=== PATIENT | female | born 1945 | race Caucasian/White ===

== ENCOUNTER 2022-12-11 09:30 | Outpatient (RCR) | payer MEDICARE, SELFPAY ==
[2022-12-11 09:31] VITALS: BMI 25.0
[2022-12-11 10:44] VITALS: BMI 25.0
== END 2023-01-01 14:23 | disposition home or self-care (01) ==
LOC: ANHDMC 09:30
PROVIDERS: PCP Internal Medicine; Visit Provider Internal Medicine
DX: E11.65 Type 2 diabetes mellitus with hyperglycemia (principal); Z71.89 Other specified counseling; Z71.3 Dietary counseling and surveillance
CPT/HCPCS: 97802; G0108

== ENCOUNTER 2024-11-10 09:04 | Outpatient (CLI) | payer MEDICARE, SELFPAY ==
[2024-11-10 09:50] LABS: Basophils Percent Auto 0.7 % (0.2-1.2); Eosinophils Absolute Auto 0.2 K/mm3 (0-0.3); Eosinophils Percent Auto 3.2 % (0-4.4); Hematocrit 43.6 % (37.0-47.0); Hemoglobin 13.9 g/dL (12.0-15.0); Immature Granulocyte Absolute 0.02 K/mm3 (0.00-0.031); Immature Granulocyte Percent A 0.4 % (0-0.5); Lymphocytes Absolute Auto 1.57 K/mm3 (0.9-3.2); Lymphocytes Percent Auto 27.7 % (18.3-44.2); Mean Corpuscular HGB Conc 31.9 g/dl (32-36); Mean Corpuscular Hemoglobin 27.8 pg (26-34); Mean Corpuscular Volume 87.2 fl (80-100); Mean Platelet Volume 9.3 fl (7.4-10.4); Monocytes Absolute Auto 0.4 K/mm3 (0.1-0.6); Monocytes Percent Auto 6.4 % (2.6-8.5); Neutrophils Absolute Auto 3.5 K/mm3 (1.3-6.7); Neutrophils Percent Auto 61.6 % (45.5-73.1); Platelet Count Result 255 k/mm3 (150-375); Red Cell Distribution Width 13.2 % (11.5-14.5); White Blood Count 5.7 K/mm3 (4.5-10.0)
--- OUTSIDE RECORDS SUMMARY | 2024-11-10 10:11 | XMS_ITS | Data Portability ---
Author Organization [facility], Main Office Address [address] [place] [address] Care Team Providers Care Belt Maker Name Role Phone BAR REY Primary Care Provider BAR REY Referring Provider Assessment Encounter Date Assessment Date Assessment LastModified by Organization Details LastModified Time 05/18/2023 05/18/2023 Blood work urine diet exercise questions all answered follow-up 4 months [email or web address] Not available 06/14/2023 14:30:00 12/22/2023 12/22/2023 78-year-old patient presents today for right wrist pain after a fall on 12/20/2023. She was letting her dog when she tripped and fell onto her outstretched right hand. She presented to the emergency room where x-rays were taken and she was told she had a fracture. She was placed in a splint and told to follow up with us. She presents today still in the splint, she rates her pain a 6/10. She denies any past medical history other than being told she was a prediabetic. She underwent ankle surgery a year and a half ago with Dr. Trejo without issue. Review of systems per patient questionnaire Imaging: X-rays reviewed show a mildly displaced fracture of the right distal radius with dorsal angulation. Physical exam: Splint was removed. Bruising and edema from elbow to fingers. Pain with palpitation to the distal radius. Able to wiggle fingers and move elbow without issue. Sensation intact throughout. Today we discussed treatment options including surgical fixation versus conservative treatment. We discussed that she may have reduced range of motion and development of her arthritis if she chooses to not have the wrist fixed. She states she plays the piano and would like to have her best possible outcome. Risks, benefits, and alternatives to surgery were discussed with the patient. Risks included but are not limited to pain, stiffness, infection, injury to other structures including nerves or blood vessels, need for future surgery, and anesthesia complications. The goal of surgery is to improve symptoms but there is no guarantee of any results and it is possible the condition is worse after surgery. Patient agreed and would like to proceed. [email or web address] Not available 12/22/2023 11:34:50 01/13/2024 01/13/2024 78-year-old female presents for her 1st follow-up status post right distal radius ORIF done on 12/29/2023. She reports feeling good, pain is improved, she has taking no pain medications, rates her pain as 3/10. Splint was removed. Incision is clean dry intact without any signs of infection. Sutures removed redressed with Steri-Strips. She does still have soreness at the distal radius and pain with rotation of the wrist. Sensation intact to light touch throughout, 2+ radial pulse. We placed her into a wrist brace. She should treat this as a cast and keep it on all times except for hygiene. We will see her back in 2 weeks with repeat x-rays. She is in agreement with the plan. Not available 01/13/2024 12:34:37 01/27/2024 01/27/2024 78-year-old female presents for follow-up of her right wrist status post distal radius ORIF on 12/29/2023. She reports feeling better, she is getting some pain in her thumb from the brace. She has been working on movement of her fingers. She currently rates her pain as 3/10, not taking any medications, still wearing the brace. Incisions well healed. She still has some soreness to palpation at the distal radius. She has good motion of her fingers. She does have tenderness over the thumb CMC and MCP joints. 2+ radial pulse. X-rays of the wrist were reviewed, demonstrating hardware intact in place with maintenance of alignment At this point she is progressing well. Since she still has some tenderness we will keep her in the brace for another couple of weeks. We will see her back then with repeat x-rays. She should continue working on finger motion and can use a squeeze ball. She is in agreement with the plan. Not available 01/27/2024 18:34:35 02/10/2024 02/10/2024 78-year-old female presents for follow-up of her right wrist status post ORIF of the distal radius and 12/29/2023. Overall she is doing well, minimal pain, feeling better she has started trying to play the piano but says she can not play as well as before her injury yet. She has not taking any medications. She is working on exercises on her own with a stress ball Incisions well healed. She has no tenderness around the distal radius. She has full flexion-extensio n of her fingers and movement of her wrist without pain. She is sensation intact to light touch throughout, 2+ radial pulse. X-rays reviewed, demonstrating hardware intact in place with maintenance alignment, healing fracture At this point she is progressing well. She may come out of the brace and be activities as tolerated. She may follow-up as needed if any questions or concerns arise. Not available 02/10/2024 12:11:20 Plan of Treatment Reminders Order Date Submit Date Provider Last Modified By Organization Details Last Modified Time Details Appointments None recorded. Lab urinalysis, microscopic 2022 023 [facility] (Lab), [address] [place], [address], 4 18:30:19 HbA1c (hemoglobin A1c), blood 2022 023 [facility] (Lab), [address] [place], [address], 4 18:30:19 CBC w/ auto diff 2022 023 [email or web address] [facility] (Lab), [address] [place], [address], 3 16:52:12 T3, free, serum or plasma 2022 023 [facility] (Lab), [address] [place], [address], 3 16:52:12 T4, free, serum 2022 023 [facility] (Lab), [address] [place], [address], 3 16:52:12 TSH, serum or plasma [address] (Lab), [address] [place], [address], 3 16:52:12 lipid panel, serum [address] (Lab), [address] [place], [address], 3 16:52:12 CMP, serum or plasma [address] (Lab), [address] [place], [address], 3 16:52:12 Referral None recorded. Procedures None recorded. Surgeries None recorded. Imaging XR, wrist, 3 or more view 2023 024 [facility] [place], [address], [place], [address], 4 14:08:14 XR, wrist, 3 or more view 2023 024 [facility] [place], [address], [place], [address], 4 00:17:19 Medication Orders None recorded. Patient TargetsNo targets recorded. Patient InstructionsNo instructions recorded. Reason for Referral None Reported. Results Created Date Observation Date Name Description Value Unit Range Abnormal Flag Note LastModifiedBy Organization Detail LastModifiedTime 05/18/20 23 05/18/2023 URINE MICRO SCOPI C EXAM/ IRIS white blood cells PACKED /i??h pfi?? 0-8 abnormal Not Available [facility] (Lab) [address] [place], [address], 05/18/2023 14:42:21 05/18/20 23 05/18/2023 URINE MICRO SCOPI C EXAM/ IRIS white blood cell clumps MANY /i??h pfi?? none seen- abnormal Not Available [facility] (Lab) [address] [place], [address], 05/18/2023 14:42:21 05/18/20 23 05/18/2023 URINE MICRO SCOPI C EXAM/ IRIS red blood cells 0-4 /i??h pfi?? 0-4 Not Available [facility] (Lab) [address] [place], [address], 05/18/2023 14:42:21 05/18/20 23 05/18/2023 URINE MICRO SCOPI C EXAM/ IRIS bacteria FEW abnormal Not Available [facility] (Lab) [address] [place], [address], 05/18/2023 14:42:21 05/18/20 23 05/18/2023 URINE MICRO SCOPI C EXAM/ IRIS mucous OCCASI ONAL /i??l pfi?? abnormal Not Available [facility] (Lab) [address] [place], [address], 05/18/2023 14:42:21 05/18/20 23 05/18/2023 URINE MICRO SCOPI C EXAM/ IRIS squamous epithelial FEW /i??l pfi?? abnormal Not Available [facility] (Lab) [address] [place], [address], 05/18/2023 14:42:21 05/18/20 23 05/18/2023 URINE MICRO SCOPI C EXAM/ IRIS amorphous crystal MODERA TE /i??h pfi?? abnormal Not Available [facility] (Lab) [address] [place], [address], 05/18/2023 14:42:21 05/18/20 23 05/18/2023 CBC/C OMPLE TE BLD COUNT W/DIF F white blood cells 6.1 x10'3 /uL 4.2-10 .8 Not Available [facility] (Lab) [address] [place], [address], 05/18/2023 15:28:27 05/18/20 23 05/18/2023 CBC/C OMPLE TE BLD COUNT W/DIF F red blood cells 4.72 x10'6 /uL 3.80-5 .20 Not Available [facility] (Lab) [address] [place], [address], 05/18/2023 15:28:27 05/18/20 23 05/18/2023 CBC/C OMPLE TE BLD COUNT W/DIF F hemoglobin 13.5 g/dL 12.0-1 5.6 Not Available [facility] (Lab) [address] [place], [address], 05/18/2023 15:28:27 05/18/20 23 05/18/2023 CBC/C OMPLE TE BLD COUNT W/DIF F hematocrit 41.7 % 35.7-4 5.7 Not Available [facility] (Lab) [address] [place], [address], 05/18/2023 15:28:27 05/18/20 23 05/18/2023 CBC/C OMPLE TE BLD COUNT W/DIF F mean red cell volume 88.3 fL 82.0-9 9.0 Not Available [facility] (Lab) [address] [place], [address], 05/18/2023 15:28:27 05/18/20 23 05/18/2023 CBC/C OMPLE TE BLD COUNT W/DIF F mean red cell hemoglobin 28.6 pg 27.0-3 3.0 Not Available [facility] (Lab) [address] [facility] [place], [address], 05/18/2023 15:28:27 05/18/20 23 05/18/2023 CBC/C OMPLE TE BLD COUNT W/DIF F mean RBC HGB concentratio n 32.4 g/dL 31.0-3 6.0 Not Available [facility] (Lab) [address] [place], [address], 05/18/2023 15:28:27 05/18/20 23 05/18/2023 CBC/C OMPLE TE BLD COUNT W/DIF F red cell distribution width 12.7 % 11.8-1 5.5 Not Available [facility] (Lab) [address] [place], [address], 05/18/2023 15:28:27 05/18/20 23 05/18/2023 CBC/C OMPLE TE BLD COUNT W/DIF F platelets 171 x10'3 /uL 150-40 0 Not Available [facility] (Lab) [address] [place], [address], 05/18/2023 15:28:27 05/18/20 23 05/18/2023 CBC/C OMPLE TE BLD COUNT W/DIF F mean platelet volume 11.3 fL 9.0-12 .4 Not Available [facility] (Lab) [address] [place], [address], 05/18/2023 15:28:27 05/18/20 23 05/18/2023 CBC/C OMPLE TE BLD COUNT W/DIF F neutrophils 66.6 % 39.0-7 2.0 Not Available [facility] (Lab) [address] [place], [address], 05/18/2023 15:28:27 05/18/20 23 05/18/2023 CBC/C OMPLE TE BLD COUNT W/DIF F lymphocytes 23.9 % 16.0-4 7.0 Not Available [facility] (Lab) [address] [place], [address], 05/18/2023 15:28:27 05/18/2005/18/2023 CBC/C OMPLE TE BLD COUNT W/DIF F monocytes 6.9 % 5.0-12 .0 Not Available [facility] (Lab) [address] [place], [address], 05/18/2023 15:28:27 05/18/20 23 05/18/2023 CBC/C OMPLE TE BLD COUNT W/DIF F eosinophils 1.5 % 1.0-7. 0 Not Available [facility] (Lab) [address] [place], [address], 05/18/2023 15:28:27 05/18/20 23 05/18/2023 CBC/C OMPLE TE BLD COUNT W/DIF F basophils 0.8 % 0.0-2. 0 Not Available [facility] (Lab) [address] [place], [address], 05/18/2023 15:28:27 05/18/20 23 05/18/2023 CBC/C OMPLE TE BLD COUNT W/DIF F immature granulocytes 0.3 % 0.00-0 .50 Not Available [facility] (Lab) [address] [place], [address], 05/18/2023 15:28:27 05/18/20 23 05/18/2023 CBC/C OMPLE TE BLD COUNT W/DIF F neutrophils, absolute count 4.07 x10'3 /uL 1.5-8. 0 Not Available [facility] (Lab) [address] [place], [address], 05/18/2023 15:28:27 05/18/20 23 05/18/2023 CBC/C OMPLE TE BLD COUNT W/DIF F lymphocytes, absolute count 1.46 x10'3 /uL 1.07-3 .43 Not Available [facility] (Lab) [address] [place], [address], 05/18/2023 15:28:27 05/18/20 23 05/18/2023 CBC/C OMPLE TE BLD COUNT W/DIF F monocytes, absolute count 0.42 x10'3 /uL 0.29-0 .99 Not Available [facility] (Lab) [address] [place], [address], 05/18/2023 15:28:27 05/18/20 23 05/18/2023 CBC/C OMPLE TE BLD COUNT W/DIF F eosinophils, absolute count 0.09 x10'3 /uL 0.02-0 .53 Not Available [facility] (Lab) [address] [place], [address], 05/18/2023 15:28:27 05/18/20 23 05/18/2023 CBC/C OMPLE TE BLD COUNT W/DIF F basophils, absolute count 0.05 x10'3 /uL 0.01-0 .08 Not Available [facility] (Lab) [address] [place], [address], 05/18/2023 15:28:27 05/18/20 23 05/18/2023 CBC/C OMPLE TE BLD COUNT W/DIF F immature granulocytes ,absolute 0.02 x10'3 /uL 0.00-0 .05 Not Available [facility] (Lab) [address] [place], [address], 05/18/2023 15:28:27 05/18/20 23 05/18/2023 CBC/C OMPLE TE BLD COUNT W/DIF F nucleated red blood cells 0.0 % -0 Not Available [facility] (Lab) [address] [place], [address], 05/18/2023 15:28:27 05/18/20 23 05/18/2023 CBC/C OMPLE TE BLD COUNT W/DIF F NRBC# 0.00 x10'3 /uL Not Available [facility] (Lab) [address] [place], [address], 05/18/2023 15:28:27 05/18/20 23 05/18/2023 T3 FREE free T3 3.2 pg/mL 2.77-5 .27 Not Available [facility] (Lab) [address] [place], [address], 05/18/2023 20:09:30 05/18/20 23 05/18/2023 T4 FREE free T4 1.09 NG/dL 0.78-2 .19 Not Available [facility] (Lab) [address] [place], [address], 05/18/2023 18:12:38 05/18/2005/18/2023 TSH thyroid-stim ulating hormone 0.644 uIU/m L 0.465- 4.680 Not Available [facility] (Lab) [address] [place], [address], 05/18/2023 16:00:40 05/18/20 23 05/18/2023 HEMOG LOBIN A1C HA1C 6.6 % 4.0-6. 0 high Diabe stephanie Scree boogie Crite ayush: <5.7% Consi stent with absen ce of diabe stephanie 5.7-6 .4% Consi stent with incre ased risk for diabe stephanie (pred iabet es) >OR=6 .5% Consi stent with diabe tsephanie REFER ENCE: Diabe stephanie Care 2016, 39(Brewer ppl.1 ):s13 -s22 Not Available [facility] (Lab) [address] [place], [address], 05/18/2023 15:39:40 05/18/20 23 05/18/2023 LIPID PANEL cholesterol 166 mg/dL 140-19 9 NIH BALBIR NSUS RECOM MENDA TION FOR BHUPINDER STERO L: ADULT CHILD LOW RISK: <200 <170 BORDE RLINE : <200- 239 ----- HIGH RISK: >240 >200 Not Available [facility] (Lab) [address] [place], [address], 05/18/2023 16:05:58 05/18/20 23 05/18/2023 LIPID PANEL triglyceride s 198 mg/dL 0-150 high NIH BALBIR NSUS REPOR T RECOM MENDA TION FOR TRIGL YCERI CLARE: ADULT CHILD LOW RISK: <150 ----- BODER LINE: 150-1 99 ----- HIGH RISK: >200 ----- Not Available [facility] (Lab) [address] [place], [address], 05/18/2023 16:05:58 05/18/20 23 05/18/2023 LIPID PANEL HDL cholesterol 61 mg/dL 40- Not Available [facility] (Lab) [address] [place], [address], 05/18/2023 16:05:58 05/18/20 23 05/18/2023 LIPID PANEL LDL cholesterol, calculated 65 mg/dL 0-130 NIH BALBIR NSUS REPOR T RECOM MENDA TIONS FOR LDL: ADULT CHILD LOW RISK <130 <110 (OPTI MAL LDL) <100 ----- BORDE RLINE : 130-1 59 ----- HIGH RISK: >160 >130 A TRIGL YCERI DE RESUL T >400 INVAL IDATE S THE CALCU LATIO N FOR LDL FRACT IONAT ION - THE LDL RESUL T WILL NOT BE REPOR LINDY. Not Available [facility] (Lab) [address] [place], [address], 05/18/2023 16:05:58 05/18/20 23 05/18/2023 COMPR EHENS ROSA ELENA METAB OLIC PANEL sodium 138 mmol/ L 137-14 5 Not Available [facility] (Lab) [address] [place], [address], 05/18/2023 16:06:09 05/18/20 23 05/18/2023 COMPR EHENS ROSA ELENA METAB OLIC PANEL potassium 4.6 mmol/ L 3.5-5. 1 Not Available [facility] (Lab) [address] [place], [address], 05/18/2023 16:06:09 05/18/20 23 05/18/2023 COMPR EHENS ROSA ELENA METAB OLIC PANEL chloride 102 mmol/ L 98-107 Not Available [facility] (Lab) [address] [place], [address], 05/18/2023 16:06:09 05/18/20 23 05/18/2023 COMPR EHENS ROSA ELENA METAB OLIC PANEL carbon dioxide 29 mmol/ L 22-30 Not Available [facility] (Lab) [address] [place], [address], 05/18/2023 16:06:09 05/18/20 23 05/18/2023 COMPR EHENS ROSA ELENA METAB OLIC PANEL anion gap 11.6 mmol/ L 14-22 low Not Available [facility] (Lab) [address] [place], [address], 05/18/2023 16:06:09 05/18/20 23 05/18/2023 COMPR EHENS ROSA ELENA METAB OLIC PANEL glucose 100 mg/dL 70-99 high Not Available [facility] (Lab) [address] [place], [address], 05/18/2023 16:06:09 05/18/20 23 05/18/2023 COMPR EHENS ROSA ELENA METAB OLIC PANEL BUN 9 mg/dL 8-19 Not Available [facility] (Lab) [address] [place], [address], 05/18/2023 16:06:09 05/18/20 23 05/18/2023 COMPR EHENS ROSA ELENA METAB OLIC PANEL creatinine 0.68 mg/dL 0.66-1 .25 Not Available [facility] (Lab) [address] [place], [address], 05/18/2023 16:06:09 05/18/20 23 05/18/2023 COMPR EHENS ROSA ELENA METAB OLIC PANEL GFR >60 Refer ence Range : [place] ge GFR Healt hy Adult : >60 mL/mi n/1.7 3 m2 Chron ic Kidne y Disea se: 15-60 mL/mi n/1.7 3 m2 Kidne y Failu re: <15/m L/min /1.73 m2 www.n iddk. nih.g ov The MDRD study equat ion has not been valid ated in child aniyah <18 years of age; pregn ant women ; the elder ly >85 years of age; or in some racia l or ethni c subgr oups, such as Hispa nics. Outsi de the valid ated elva eters , estim ated GFR is less accur ate, requi ring clini vladimir judgm ent on a case- by-ca se basis . Clini vladimir inter preta tion for other races and ages must be made by the clini july. The MDRD study equat ion has not been valid ated for the evalu ation of serum creat inine relat ed to nutri holger l statu s or medic ation usage . For perso ns <18 years of age, a pedia tric GFR calcu lator is avail able on the [facility] websi te: https ://marco jones.ganesh mccoy.o rg/pr ofess ional s/kdo qi/gf r_cal culat or Not Available [facility] (Lab) [address] [place], [address], 05/18/2023 16:06:09 05/18/2005/18/2023 COMPR EHENS ROSA ELENA METAB OLIC PANEL alkaline phosphatase 92 U/L 38-126 Not Available [facility] (Lab) [address] [place], [address], 05/18/2023 16:06:09 05/18/20 23 05/18/2023 COMPR EHENS ROSA ELENA METAB OLIC PANEL alanine aminotransfe rase 30 U/L 0-35 Not Available [facility] (Lab) [address] [place], [address], 05/18/2023 16:06:09 05/18/20 23 05/18/2023 COMPR EHENS ROSA ELENA METAB OLIC PANEL aspartate aminotransfe rase 32 U/L 15-37 Not Available [facility] (Lab) [address] [place], [address], 05/18/2023 16:06:09 05/18/20 23 05/18/2023 COMPR EHENS ROSA ELENA METAB OLIC PANEL bilirubin, total 0.60 mg/dL 0.20-1 .30 Not Available [facility] (Lab) [address] [place], [address], 05/18/2023 16:06:09 05/18/20 23 05/18/2023 COMPR EHENS ROSA ELENA METAB OLIC PANEL calcium 10.8 mg/dL 8.4-10 .2 high Not Available [facility] (Lab) [address] [place], [address], 05/18/2023 16:06:09 05/18/20 23 05/18/2023 COMPR EHENS ROSA ELENA METAB OLIC PANEL total protein 7.0 g/dL 6.3-8. 2 Not Available [facility] (Lab) [address] [place], [address], 05/18/2023 16:06:09 05/18/20 23 05/18/2023 COMPR EHENS ROSA ELENA METAB OLIC PANEL albumin 4.3 g/dL 3.0-4. 4 Not Available [facility] (Lab) [address] [place], [address], 05/18/2023 16:06:09 05/18/20 23 05/18/2023 COMPR EHENS ROSA ELENA METAB OLIC PANEL globulin 2.7 g/dL 2.6-4. 2 Not Available [facility] (Lab) [address] [place], [address], 05/18/2023 16:06:09 05/18/20 23 05/18/2023 COMPR EHENS ROSA ELENA METAB OLIC PANEL A/G ratio 1.6 ratio 1.0-2. 0 Not Available [facility] (Lab) [address] [place], [address], 05/18/2023 16:06:09 07/07/20 23 07/07/2023 MAMMO , scree boogie, digit al, bilat eral [facility] [address] [place] [address] [phone] Patien t Name: TOBI WELLS Access ion #: [id number] Sex: F : 1944 6 Dictat ed By: Evangelina Cantu Attend ing Physic lashae: YON REY Orderi ng Physic lashae: YON REY Exam Date: 2022 09:31 AM Exam Name: MG SCRN BREAST RICKY BILAT Admitt ing Diagno sis(es ): SCREEN ING MAMMOG JEROME WITH TOMOSY NTHESI S: REASON FOR EXAM: routin e mammog jerome COMPAR JED:1 09/01/19 22; 2021 TECHNI QUE: Bilate ral CC and MLO views obtain ed. Images were obtain ed using a Digita l Tomosy nthesi s Unit. Standa rd 2D and 3D Tomosy nthesi s images were review ed. FINDIN GS: BREAST COMPOS ITION: The bilate ral breast s are hetero geneou sly dense, which may obscur e small masses . In the right breast , no asymme trical parenc hymal patter n, rafael ectura l distor tion, pleomo rphic microc alcifi cation s or masses . In the left breast , no asymme trical parenc hymal patter n, rafael ectura l distor tion, pleomo rphic microc alcifi cation s or masses . IMPRES ARIA: No findin gs of malign tanvir. Recomm end annual mammog jerome. BIRADS : 2 - Benign Electr onical ly Signed by: Evangelina Cantu at 2022 10:52: 06 AM Page 1 [email or web address] (Im[facility]) [address] [place], [address], 09/30/2023 11:09:21 12/21/19 24 12/20/2023 XR, wrist , 3 or more view No observ ation record ed. [email or web address] Not Available 11/30 14:30:11 12/29/19 24 12/29/2023 RF, elsie nce No observ ation record ed. [email or web address] [facility] [address] [place], [address], 12/30/2023 07:05:11 01/27/20 XR, wrist , 3 or more view No observ ation record ed. [address] [facility] [place] [address], [place], [address], 01/27/2024 11:10:53 01/28/20 24 01/28/2024 DEXA, axial skele ton [facility] [address] [place] [address] [phone] Patien t Name: DIOGENES WaltTOBI Access ion #: [id number] Sex: F : 1944 7 Dictat ed By: Yon solano Attend ing Physic lashae: [facility] Physic lashae: YON REY Exam Date: 2023 09:39 AM Exam Name: XR DEXA-H IPS PELVIS SPINE Admitt ing Diagno sis(es ): CLINIC AL HISTOR Y: Postme nopaus al screen ing for osteop orosis . TECHNI QUE: The study was perfor med using a [employer]est[employer] Unit. Lumbar spine and proxim al femora l evalua tions were evalua lindy in the fronta l projec tions. COMPAR JED: Prior DEXA scan dated 022. FINDIN GS: L1-L4 demons trates a bone minera l densit y of 1.124 g/cm2 with a T-scor e of -0.6, within normal limits . There is been a 7.4% interv al increa se in bone minera l densit y in the lumbar spine compar ed to the prior exam. Left femora l neck evalua tion demons trates a bone minera l densit y of 0.733 g/cm2 with a T-scor e of -2.2, consis tent with osteop enia. Right femora l neck evalua tion demons trates a bone minera l densit y of 0.718 g/cm2 with a T-scor e of -2.3 consis tent with osteop enia. There has been a 3.5% interv al decrea se in bone minera l densit y in the total mean proxim al femora compar ed to the prior exam. Estima lindy total body fat is 47.4%. BMI is 24.3, within the normal range. IMPRES ARIA: Bone minera l densit y is consis tent with osteop enia based on lowest T score as detail ed above. Electr onical ly Signed by: Yon solano at 2023 10:51: 38 AM Page 1 [email or web address] [facility] ([facility]) [address] [place], [address], 03/15/2024 10:15:56 02/10/20 24 XR, wrist , 3 or more view No observ ation record ed. [email or web address] [facility] [place] [facility] [place] [address], [place], [address], 02/10/2024 09:41:26 Result Notes None recorded. Problems Name Problem SNOMED Code Status Onset Date Resolution Date Notes Provider Name and Address Organization Details Recorded Time Closed trimalleol ar fracture of left ankle 7744795897954 9102 Active 2021 Not Available [facility] 11/09/202 3 05:44:44 Mammograph y abnormal 739497943 Active 2021 Not Available [facility] 3 05:44:44 Insomnia 245046661 Active 2018 Not Available [facility] 3 05:44:44 Adhesive capsulitis of left shoulder 3848795647776 07 Active 2019 Not Available [facility] 3 05:44:44 Type 2 diabetes mellitus without complicati on 952574150 Active 2021 Not Available [facility] 3 05:44:44 Vertigo 344542532 Active 2021 Not Available [facility] 3 05:44:44 Dizziness 521021334 Active 2021 Not Available [facility] 3 05:44:44 Hyperlipid emia 00847263 Active 2017 Not Available [facility] 3 05:44:44 Closed trimalleol ar fracture 3634941 Active 2021 Not Available [facility] 3 05:44:45 Polyp of colon 63133903 Active 2021 Not Available [facility] 3 05:44:45 Hyperglyce pacheco 88748556 Active 2021 Not Available [facility] 3 05:44:45 Fatigue 04650776 Active 2022 Not Available [facility] 3 05:44:45 Diabetes mellitus 15898547 Active 2022 Not Available [facility] 3 05:44:45 Type 2 diabetes mellitus 89533547 Active 2022 Not Available [facility] 3 05:44:44 Acute urinary tract infection 924531114 Active 2022 Not Available [facility] 3 05:44:44 Essential hypertensi on 99077027 Active 2022 Not Available [facility] 3 05:44:45 Dysuria 72170462 Active 2022 Not Available [facility] 3 05:44:44 Pain of right wrist 1998857215712 00 Active 2023 ELIANE Coronel Farmeron 4 09:26:09 Problem Notes None recorded. Procedures Surgical History Date Name Laterality Status Provider Name and Address Organization Details Recorded Time 4 open reduction of fracture with internal fixation completed Jessica ELIANE Devine Farmeron 02/08/2024 08:02:13 2 Ankle Surgery completed Not Available On license of [facility] 2022 05:58:17 2 Most Recent Bone Density completed Not Available On license of [facility] 10/29/2022 05:58:13 2 Ankle Surgery completed Not Available On license of [facility] 2022 05:58:17 Eye Surgery completed Not Available On license of [facility] 10/29/2022 05:58:17 Imaging Results Imaging Date Name Status LastModified by Organiz ation Details LastModified Time 07/07/2023 MAMMO, screening, digital, bilateral completed [email or web address] [facility] (Imaging) [address] [place], [address], 09/30/2023 11:09:21 12/20/2023 XR, wrist, 3 or more view completed [email or web address] Information not available 12/21/2023 14:30:11 12/29/2023 RF, guidance completed [email or web address] [facility] [address] [place], [address], 12/30/2023 07:05:11 01/27/2024 XR, wrist, 3 or more view completed [email or web address] [facility] [address], [place], [address], 01/27/2024 11:10:53 01/28/2024 DEXA, axial skeleton completed [email or web address] [facility] (Imaging) [address] [place], [address], 03/15/2024 10:15:56 02/10/2024 XR, wrist, 3 or more view completed [email or web address] [facility] [place] [address], [place], [address], 02/10/2024 09:41:26 Procedure Notes None recorded. Medical Equipment None Reported. Allergies Allergen ID Allergen Name Allergen Category Reaction Reaction Severity Criticality Documentation Date Start Date Code Code System Note Provider Name and Address Organization Details Recorded Time 59780 trazodone medicatio n other Not available Not available 10/29/2022 59427 RxNorm restl ess legs Not Available On license of [facility] 3 06:17:42 73753 omeprazol e medicatio n Not available Not available Not available 10/29/2022 7646 RxNorm worse dned acid reflu x Not Available On license of [facility] 3 06:17:42 24124 Lexapro medicatio n Not available Not available Not available 10/29/2022 51987 1 RxNorm GI upset Not Available On license of [facility] 3 06:17:42 21282 Benadryl medicatio n other Not available Not available 10/29/2022 97893 7 RxNorm hyper activ ity Not Available On license of [facility] 3 06:17:42 35999 Belsomra medicatio n insomnia Not available Not available 10/29/2022 41470 05 RxNorm Not Available On license of [facility] 3 06:17:43 Medications Name Sig Start Date Stop Date Status Note LastModified by Organization Details LastModified Time atorvasta tin 40 mg tablet TAKE 1 TABLET BY MOUTH ONCE DAILY active Not Available Not Available No t Available metformin 500 mg tablet Take 1 tablet by mouth once daily 12/[address] Rey changed medicati on Not Available Not Available Not Available atorvasta tin 20 mg tablet Take 1 tablet every day by oral route. active Not Available Not Available No t Available atorvasta tin 10 mg tablet take one tablet by mouth once daily 04/01 completed Not Available Not Available Not Available hydrocodo ne 5 mg-acetam inophen 325 mg tablet Take by oral route for 5 days. active Not Available Not Available No t Available peg-elect rolyte solution 420 gram oral solution MIX AND DRINK 1/2 OF SOLUTION AT 5 PM ON 10/07/21 AND THEN DRINK THE OTHER HALF AT 5 AM ON 10/08/2111/21 completed Not Available Not Available Not Available Kenalog 10 mg/mL suspensio n for injection In office injectio n administ ered by the provider 12/29 completed [facility]: [phone] 4-20 Not Available Not Available Not Available magnesium 250 mg tablet Take by oral route. 03/10 completed Not Available Not Available Not Available aspirin 81 mg tablet Take by oral route. 01/12 completed Not Available Not Available Not Available mupirocin 2 % topical ointment APPLY OINTMENT TOPICALL Y IN EACH NOSTRIL TWICE DAILY FOR 5 DAYS 02/02 completed Not Available Not Available Not Available doxylamin e succinate 25 mg tablet Take 1 tablet every day by oral route at bedtime. 11/21 completed Not Available Not Available Not Available Aspir-81 mg tablet,de layed release Take 1 tablet every day by oral route. 10/31 completed Not Available Not Available Not Available diazepam 5 mg tablet 07/14 completed Not Available Not Available Not Available Pneumovax -23 25 mcg/0.5 mL injection syringe [facility]ARMACI ST ADMINIST ERED IMMUNIZA TION ADMINIST ERED AT TIME OF DISPENSI NG 03/18 completed Not Available Not Available Not Available metoprolo l tartrate 25 mg tablet 09/02 completed Not Available Not Available Not Available nitrofura ntoin monohydra te/macroc rystals 100 mg capsule TAKE 1 CAPSULE BY MOUTH TWICE DAILY FOR 5 DAYS active Not Available Not Available No t Available magnesium 12/26 completed Not Available Not Available Not Available Tylenol 01/16 completed Not Available Not Available Not Available Stool Softener 05/18 completed Not Available Not Available Not Available Un[employer]om SleepGels 1-2 qhs 09/10 completed Not Available Not Available Not Available Doxylamin e Succinate (Sleep) 01/12 completed Not Available Not Available Not Available multivita min 12/26 completed Not Available Not Available Not Available Complete Multivita min 05/18 completed Not Available Not Available Not Available lidocaine (PF) 10 mg/mL (1 %) injection solution In office injectio n administ ered by the provider 12/29 completed [facility]: 0409-427 6-17 Not Available Not Available Not Available melatonin 5 mg tablet Take by oral route. 03/28 completed Not Available Not Available Not Available Prevnar 13 (PF) 0.5 mL intramusc ular syringe 03/28 completed Not Available Not Available Not Available Probiotic 01/12 completed Not Available Not Available Not Available OneTouch Verio test strips USE 1 STRIP TO CHECK GLUCOSE IN THE MORNING 01/12 completed Not Available Not Available Not Available magnesium 400 mg (as magnesium oxide) capsule Take by oral route. active Not Available Not Available No t Available Farxiga 5 mg tablet Take 1 tablet every day by oral route. 05/18 completed Not Available Not Available Not Available MegaRed [place]-3 Krill Oil 09/22 completed Not Available Not Available Not Available Shingrix (PF) 50 mcg/0.5 mL intramusc ular suspensio n, kit 03/28 completed Not Available Not Available Not Available Fluzone High-Dose (PF) 180 mcg/0.5 mL intramusc ular syringe 09/22 completed Not Available Not Available Not Available OneTouch Delica Plus Lancet 33 gauge USE DIRECTED TO CHECK BLOOD SUGAR ONCE DAILY 01/12 completed Not Available Not Available Not Available Citracal- D3 Maximum Plus 11/17 completed Not Available Not Available Not Available COVID-19 test specimen collectio n DIRECTED 09/09 completed Not Available Not Available Not Available Vitals Date Recorded Body height Body mass index (BMI) Body weight Body temperature Heart rate Systolic blood pressure Diastolic blood pressure Provider Name and Address Organization Details Last Updated DateTime 3 170.18 cm 24.6 kg/m2 27044 g 98.2 [degF] 84 /min 124 mm[Hg] 72 mm[Hg] ELIANE [place] [facility] 10:52:31 Date Recorded Body height Body mass index (BMI) Body weight Pain severity - 0-10 verbal numeric rating [Score] - Reported Provider Name and Address Organization Details Last Updated DateTime 12/22/2023 170.18 cm 24.6 kg/m2 16426 g 6 Jessica Devine [facility] 12/22/2023 09:25:07 Date Recorded Body height Body mass index (BMI) Body weight Pain severity - 0-10 verbal numeric rating [Score] - Reported Provider Name and Address Organization Details Last Updated DateTime 01/13/2024 170.18 cm 24.6 kg/m2 40591 g 3 Jessica Devine [facility] 01/13/2024 10:09:56 Date Recorded Body height Body mass index (BMI) Body weight Pain severity - 0-10 verbal numeric rating [Score] - Reported Provider Name and Address Organization Details Last Updated DateTime 01/27/2024 170.18 cm 24.3 kg/m2 24558.82 g 3 Jessica Devine [facility] 01/27/2024 11:10:11 Date Recorded Body height Body mass index (BMI) Body weight Pain severity - 0-10 verbal numeric rating [Score] - Reported Provider Name and Address Organization Details Last Updated DateTime 02/10/2024 170.18 cm 24.3 kg/m2 12089.82 g 1 Jessica Devine [facility] 02/10/2024 09:40:38 Social History Question Answer Notes LastModified by Organization Details LastModified Time Tobacco Smoking Status Never Smoker Not Available [facility] 10/29/2022 05:57:35 Do You Have An Advance Directive? Yes MIGRATION.0301 [id number] Information not available 10/29/2022 What Is Your Level Of Alcohol Consumption? None MIGRATION.0301 956104 Information not available 10/29/2022 Are You Blind Or Do You Have Difficulty Seeing? Yes Wears Glasses MIGRATION.0301 008970 Information not available 10/29/2022 What Is Your Level Of Caffeine Consumption? Moderate MIGRATION.0301 761300 Information not available 10/29/2022 How Much Tobacco Do You Chew? None MIGRATION.0301 127331 Information not available 10/29/2022 In The 14 Days Before Symptom Onset, Have You Had Close Contact With A Laboratory-confi rmed COVID-19 While That Case Was Ill? No MIGRATION.030 836891 Information not available 10/29/2022 In The 14 Days Before Symptom Onset, Have You Had Close Contact With A Person Who Is Under Investigation For COVID-19 While That Person Was Ill? No MIGRATION.030 249756 Information not available 10/29/2022 Are You Deaf Or Do You Have Serious Difficulty Hearing? No MIGRATION.0301 114866 Information not available 10/29/2022 What Type Of Diet Are You Following? REGULAR MIGRATION.030 402790 Information not available 10/29/2022 Which Illicit Or Recreational Drugs Have You Used? None MIGRATION.030 084003 Information not available 10/29/2022 Do You Or Have You Ever Used E-cigarettes Or Vape? Never Used Electronic Cigarettes MIGRATION.030 673408 Information not available 10/29/2022 What Is The Highest Grade Or Level Of School You Have Completed Or The Highest Degree You Have Received? [id number] MIGRATION.030 526394 Information not available 10/29/2022 What Is Your Occupation? Retired MIGRATION.030 952379 Information not available 10/29/2022 Have There Been Any Changes To Your Family Or Social Situation? No MIGRATION.030 407939 Information not available 10/29/2022 What Is The Fluoride Status Of Your Home? Unknown MIGRATION.030 575939 Information not available 10/29/2022 Are There Any Guns Present In Your Home? No MIGRATION.030 600969 Information not available 10/29/2022 Do You Use Insect Repellent Routinely? No MIGRATION.0301 479783 Information not available 10/29/2022 Where Do You Live? SingleLevelHouse MIGRATION.030 387729 Information not available 10/29/2022 Do You Have A Medical Power Of Marine Design Engineer? Yes MIGRATION.030 328624 Information not available 10/29/2022 What Was The Date Of Your Most Recent Tobacco Screening? 05/18/2023 [email or web address] Information not available 05/18/2023 Do You Have Any Pets? Yes MIGRATION.0301 170974 Information not available 10/29/2022 What Is Your Relationship Status? MIGRATION.0301 448742 Information not available 10/29/2022 Do You Use Your Seat Belt Or Car Seat Routinely? Yes MIGRATION.0301 830462 Information not available 10/29/2022 Do You Have Smoke And Carbon Monoxide Detectors In Your Home? Yes MIGRATION.0301 505158 Information not available 10/29/2022 Are You Passively Exposed To Smoke? No MIGRATION.0301 811719 Information not available 10/29/2022 Do You Or Have You Ever Used Smokeless Tobacco? Never Used Smokeless Tobacco MIGRATION.0301 873228 Information not available 10/29/2022 Are There Any Smokers In Your House? No MIGRATION.0301 371603 Information not available 10/29/2022 How Much Tobacco Do You Smoke? No MIGRATION.0301 056278 Information not available 10/29/2022 What Types Of Sporting Activities Do You Participate In? None MIGRATION.0301 045006 Information not available 10/29/2022 Do You Feel Stressed (tense, Restless, Nervous, Or Anxious, Or Unable To Sleep At Night)? [id number] MIGRATION.0301 201625 Information not available 10/29/2022 Do You Use Any Illicit Or Recreational Drugs? No MIGRATION.0301 106087 Information not available 10/29/2022 Do You Use Sunscreen Routinely? No MIGRATION.0301 845642 Information not available 10/29/2022 Has Tobacco Cessation Counseling Been Provided? No Not Needed-ne ve Smoked MIGRATION.0301 195093 Information not available 10/29/2022 How Many Years Have You Smoked Tobacco? 0 MIGRATION.0301 446145 Information not available 10/29/2022 Have You Recently Traveled Abroad? No MIGRATION.0301 029836 Information not available 10/29/2022 Do You Have Any Dietary Restrictions? No MIGRATION.0301 079423 Information not available 10/29/2022 Do You Or Have You Ever Used Any Other Forms Of Tobacco Or Nicotine? No MIGRATION.0301 196236 Information not available 10/29/2022 Sex: Female Functional Status Question Answer Note LastModified by Organizat ion Details LastModified Time Do you have difficulty walking or climbing stairs? No MIGRATION.3443767 026 Information not available 10/29/2022 Do you have transportation difficulties? No MIGRATION.2474635 026 Information not available 10/29/2022 Are you able to walk? YESWOREST MIGRATION.5500280 026 Information not available 10/29/2022 Do you have difficulty doing errands alone? No MIGRATION.5243918 026 Information not available 10/29/2022 Are you able to care for yourself? Yes MIGRATION.5326359 026 Information not available 10/29/2022 Do you have difficulty dressing or bathing? No MIGRATION.7121117 026 Information not available 10/29/2022 What is your exercise level? Occasional MIGRATION.1555979 026 Information not available 10/29/2022 Mental Status Question Answer Note LastModified by Organizat ion Details LastModified Time Do you have difficulty concentrating, remembering or making decisions? No MIGRATION.190012173 6 Information not available 10/29/2022 Family History Relationship Description Onset Age of this Age Resolved Age Notes LastModified by Organization Details LastModified Time Mother Myocardial infarction MIGRATION.166 [id number] Not available 10/29/2022 05:58:24 Mother Basal cell carcinoma of skin MIGRATION.206 1994757 Not available 10/29/2022 05:58:24 Father Diabetes mellitus MIGRATION.546 8428162 Not available 10/29/2022 05:58:24 Father Amyotrophic lateral sclerosis deceas ed MIGRATION.840 8362757 Not available 10/29/2022 05:58:24 Brother Parkinson's disease MIGRATION.018 [id number] Not available 10/29/2022 05:58:24 Medical History Condition Response NERVE DISEASE N BLINDNESS N RHEUMATIC FEVER N KIDNEY STONES N BLADDER PROBLEMS N MRSA N OTHER # 1 N POLIO N LUNG DISEASE/DISORDER N HISTORY OF DRUG ABUSE N RADIATION / CHEMOTHERAPY N COPD N Other # 2 N BLOOD DISEASES N EAR OR HEARING PROBLEMS N MUMPS N SHINGLES N DEPRESSION (INCLUDING POST ) N BOWEL PROBLEMS N STROKE/TIA Y ULCERS N BENIGN PROSTATIC HYPERPLASIA N MEASLES N HYPOTENSION N MYOCARDIAL INFARCTION N OBESITY N GERD/NAUSEA N ANEURYSM N URINARY/BLADDER/KIDNEY PROBLEMS N CORONARY ARTERY DISEASE (CAD) N ADDICTION CONCERNS N Impotence N ENDOMETRIOSIS N USE OF BLOOD THINNERS N SKIN PROBLEMS N GASTROINTESTINAL DISORDER N PERIPHERAL VASCULAR DISEASE N MUSCLE,JOINT OR BONE PROBLEMS N GASTROINTESTINAL BLEEDING N BLOOD CLOTS N ASTHMA N CATARACTS N ERECTILE DYSFUNCTION N VARICOSITIES N GI PROBLEMS N Low Testosterone N INFERTILITY N AIDS/HIV N CHEMOTHERAPY / RADIATION N LIVER DISEASE N MALE HYPOGONADISM N HYPERTENSION N Deficiency N TOURETTE'S N ANXIETY DISORDER N BLOOD TRANSFUSION N ANEMIA/BLOOD DISORDER N CHRONIC EAR INFECTIONS N BRONCHITIS N TUBERCULOSIS N GLAUCOMA N FOOT PROBLEM N DIVERTICULITIS N SLEEP APNEA N CHICKENPOX N INFECTIOUS DISEASE N PROSTATE N HEART ARRHYTHMIA N INSOMNIA Y HIGH CHOLESTEROL / HYPERLIPIDEMIA Y EYE PROBLEMS Y HYPERTHYROIDISM N EDEMA N CHRONIC PAIN SYNDROME N HYPOTHYROIDISM N CAROTID BLOCKAGE N CONSTIPATION N BACK / NECK PROBLEMS N HAVE YOU BEEN HOSPITALIZED OR SEEN IN [facility] IN THE PAST YEAR ? Y ATHEROSCLEROSIS N BREAST PROBLEMS N DIALYSIS N ECZEMA N OSTEOPOROSIS N ARTHRITIS N APPENDICITIS N DIABETES, TYPE N BAD TEETH N ENT N HEARTBURN / REFLUX N AUTISM SPECTRUM DISORDER (ASD) N HEPATITIS / LIVER DISEASE N GOUT N SLEEP DISORDER N ALZHEIMER'S DISEASE N Brain Problems N DEMENTIA N HERPES N SEIZURES/EPILEPSY N HEADACHES/MIGRAINES N VASCULAR DISEASE N PACEMAKER N Blood Disorder N DIZZINESS N HEART DISEASE/HEART PROBLEMS N KIDNEY DISEASE N MULTIPLE SCLEROSIS N CANCER: SPECIFY N CARDIAC ARRHYTHMIA N ATRIAL FIBRILLATION N Gall Stones N PULMONARY EMBOLISM N AUTOIMMUNE DISEASE N Gynecological History Statement/Question Response Date of Last Mammogram 05/01/2021 Date of Last Colonoscopy Most Recent Bone Density 11/28/2021 Obstetrics History GPAL:G 0 P 0 0 0 0 Immunizations Vaccine Type Date Status Note Provider Nam e and Address Organization Details Recorded Time COVID-19, mRNA, LNP-S, PF, 100 mcg/0.5mL dose or 50 mcg/0.25mL dose 1 completed Not Available On license of [facility] 07/09/2023 05:44:45 COVID-19, mRNA, LNP-S, PF, 100 mcg/0.5mL dose or 50 mcg/0.25mL dose 1 completed Not Available [facility] 07/09/2023 05:44:45 Influenza, high-dose, quadrivalent, PF 0 completed Not Available [facility] 07/09/2023 05:44:45 pneumococcal polysaccharide PPV23 0 completed Not Available [facility] 07/09/2023 05:44:45 zoster live 9 completed Not Available [facility] 07/09/2023 05:44:45 Pneumococcal conjugate PCV 13 9 completed Not Available [facility] 07/09/2023 05:44:45 influenza, unspecified formulation 8 completed Not Available [facility] 07/09/2023 05:44:45 COVID-19, mRNA, LNP-S, PF, 100 mcg/0.5mL dose or 50 mcg/0.25mL dose 1 completed Not Available [facility] 07/09/2023 05:44:45 Influenza, high-dose, quadrivalent, PF 1 completed Not Available [facility] 07/09/2023 05:44:45 Past Encounters Encounter ID Performer Location Encounter Start Date Encounter Closed Date Diagnosis/Indication Diagnosis SNOMED-CT Code Diagnosis ICD10 Code Diagnosis Note [id number] [facility] 15 2043 Mary Brennene., [address] [address] 03/18/2021 00:00:00 03/18/2021 21:49:28 [id number] [facility] 15 2043 Mary Brennene., [address] [address] 09/09/2021 00:00:00 09/09/2021 11:29:51 [id number] [facility] [address] [address] 11/21/2021 00:00:00 11/21/2021 12:30:01 [id number] [facility] [address] [address] 12/05/2021 00:00:00 12/05/2021 09:32:05 [id number] [facility] [address] [address] 12/26/2021 00:00:00 12/26/2021 12:25:10 [id number] [facility] [address] [address] 01/16/2022 00:00:00 01/16/2022 11:40:35 [id number] [facility] [address] [place] [address] Brennene., [address] [address] 03/10/2022 00:00:00 03/16/2022 10:37:56 [id number] [facility] [address] [address] 06/09/2022 00:00:00 06/09/2022 14:04:06 [id number] [facility] [address] [place], [place] [address]e., [address] [address] 07/14/2022 00:00:00 07/14/2022 22:48:22 [id number] Bar Rey MD [facility] [address] [place], [place] [address]., [address] [address] 11/17/2022 10:57:08 11/17/2022 11:50:03 Hyperlipidemia 43208437 E78.5 Type 2 tej betes mellitus without complication 592290678 E11.9 Fatigue 78814340 R53.83 [id number] Bar Rey MD [facility] [address] [facility] [address] [address] 05/18/2023 10:38:23 05/18/2023 11:26:27 Hyperlipidemia 80603294 E78.5 Type 2 tej betes mellitus without complication 717002249 E11.9 Essential hypertension 54553826 I10 Dysuria 18876058 R30.0 [id number] Tamika Metcalf NP [facility] [place] [address] [place] [address] 12/22/2023 09:12:16 12/22/2023 09:42:43 Pain of right wrist 9829312038 81512 M25.670 [id number] Param Monteiro MD [facility] [place] [address] [place] [address] 01/13/2024 10:07:37 01/13/2024 10:30:37 Pain of right wrist 8914508123 07023 M25.201 [id number] Param Monteiro MD [facility] [place] [address] [place] [address] 01/27/2024 11:07:46 01/27/2024 11:54:15 Pain of right wrist 5814808217 67415 M25.026 [id number] Param Monteiro MD [facility] [place] [address] [facility] [address] [place] [address] 02/10/2024 09:35:52 02/10/2024 10:17:29 Pain of right wrist 8106831556 69852 M25.531 Health Concerns Section Related Observation LastModified by Organization Detai ls LastModified Time None Recorded Concern Status LastModified by Organization Details LastModified Time None Recorded Advance Directives Directive Y: Payers Encounter Date Sequence Insurance Name Policy Number Policy Metcalf Covered Member ID Metcalf Member ID Guarantor Name 05/18/2023 1 [facility] (MEDICARE REPLACEMENT/A DVANTAGE - HMO) [id number] Mariia Riley [id number] Mariia Riley 12/22/2023 1 [facility] (MEDICARE REPLACEMENT/A DVANTAGE - HMO) [id number] Mariia Riley [id number] Mariia Riley 01/13/2024 1 [facility] (MEDICARE REPLACEMENT/A DVANTAGE - HMO) [id number] Mariia Riley [id number] Mariia Riley 01/27/2024 1 [facility] (MEDICARE REPLACEMENT/A DVANTAGE - HMO) [id number] Mariia Riley [id number] Mariia Riley 02/10/2024 1 [facility] (MEDICARE REPLACEMENT/A DVANTAGE - HMO) [id number] Mariia Riley [id number] Mariia Riley Notes Date Note Type Note Provider Name and Address Organization Details Recorded Time 05/18/2023 text/html Insomnia about t he same fatigue comes and goes hyperlipidemia tries to watch diet diabetes cannot tolerate metformin. Some dysuria Bar Rey MD [address] [facility], [facility] [address], [place], [address], [facility] Heysan 06/14/2023 14:30:15 OBGyn Episode No OBEpisode recorded.
--- OUTSIDE RECORDS SUMMARY | 2024-11-10 10:11 | XMS_ITS | Clinical Summary ---
Author Organization [facility] Address [address] [place] [address] Phone Care Team Providers Care Fast Food Worker Name Role Phone Gautam Rey MD Primary Care Provider [phone] Nikolas Hector MD Unavailable [phone] Allergies Active Allergy Reactions Criticality Noted Date Comments Diphenhydramine Other (see Comments) 07/08/2024 Nervousness/restless legs Dapagliflozin Diarrhea 07/08/2024 Escitalopram Other (see Comments) 07/08/2024 gerd Metformin Diarrhea 07/08/2024 Omeprazole Other (see Comments) 07/08/2024 Worsened her condition Suvorexant Other (see Comments) 07/08/2024 insomnia Trazodone Other (see Comments) 07/08/2024 Restless legs Medications atorvastatin (LIPITOR) 40 MG Tablet Take 40 mg by mouth daily. Active aspirin EC 81 MG Tablet Delayed Response Take 81 mg by mouth daily. Active Calcium Carbonate (CALCIUM 500 PO) Take by mouth. Active Encounters Date Type Department Care Team Description 11/02/2024 Results Follow-Up [facility] - Family Medicine [facility] [address] [place] [address] Nikolas Hector MD Spinal stenosis of lumbar region, unspecified whether neurogenic claudication present (Primary Dx); Muscle weakness 11/01/2024 9:18 AM [employer]IVIL [employer]INEER 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 - 11/01/2024 11:59 PM CIVIL [employer]ER 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 [facility] [address] [place] [address] Nikolas Hector MD Discharge Disposition: Discharged to home or Selfcare 11/01/2024 [facility] [address] [place] [address] Nikolas Hector MD 09/23/2024 10:15 AM CIVIL 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 Office Visit [facility] [address] [place] [address] Nikolas Hector MD Right foot drop (Primary Dx); Bilateral foot-drop; Prediabetes Discharge Disposition: Discharged to home or Selfcare 09/23/2024 Travel from Last 3 Months Family History Medical History Relation Name Comments Parkinsonism Brother Heart Attack Mother Diabetes Sister Relation Name Status Comments Brother Mother Alive Sister Social History Tobacco Use Types Packs/Day Years Used Date Smoking Tobacco: Never Smokeless Tobacco: Never Tobacco Cessation:Counseling Given: Not Answered Alcohol Use Standard Drinks/Week Comments Never 0 (1 standard drink = 0.6 oz pur e alcohol) Comments Unknown Sex and Gender Information Value Date Recorded Sex Assigned at Not on file Legal Sex Female 2:44 PM 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 [employer]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 Gender Identity Not on file Sexual Orientation Not on file Last Filed Vital Signs Vital Sign Reading Time Taken Comments Blood Pressure 132/80 09/23/2024 9:46 AM CIVIL ENGINE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 Pulse 107 09/23/2024 9:46 AM CIVIL 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 Temperature 36.6 C (97.9 F) 09/23/2024 9:46 AM CIVIL ENGINE[employer]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 Respiratory Rate 16 09/23/2024 9:46 AM CIVIL ENGINE[employer]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 Oxygen Saturation 94% 09/23/2024 9:46 AM CIVIL ENG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 Inhaled Oxygen Concentration - - Weight 69.7 kg (153 lb 9.6 oz) 09/23/2024 9:46 A M 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 Height 170.2 cm (5' 7 ) 09/23/2024 9:46 AM CIVIL ENG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 Body Mass Index 24.06 09/23/2024 9:46 AM CIV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 Plan of Treatment Upcoming Encounters Date Type Department Care Team (Late st Contact Info) Description 01/05/2025 11:30 AM CDT Office Visit [facility] - [facility]rology - [place] [address] [place] [address] Nikolas Hector MD [address] [place] [address] Health Maintenance Due Date Last Done Comments DEXA Bone Density 1945 Hepatitis C Virus (HCV) Screening 1945 TdaP Immunization 1945 Zoster Immunization (2 of 2) 12/30/2018 11/04/2018 Respiratory Syncytial Virus (RSV) Immunization (Adult) (1 - 1-dose 75+ series) 2022 SARS-COV-2 Immunization ( - season) 2024 06/21/2021, 11/20/2020, 10/23/2020 Pneumococcal Immunization (50+ years) Completed 03/26/2020, 11/04/2018 Influenza Immunization Completed 5, 06/21/2021, 07/01/2020, Additional history exists Hepatitis B Immunization Aged Out No longer eligible based on patient's age to complete this topic Meningococcal Immunization (ACWY) Aged Out No longer eligible based on patient's age to complete this topic Rotavirus Immunization Aged Out No lo nger eligible based on patient's age to complete this topic Procedures Procedure Name Priority Date/Time Associated Diagnosis Comments MRI L-SPINE W/O CONTRAST Routine 11/01/2024 10:08 AM C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 Bilateral foot-drop from Last 3 Months Results * MRI L-SPINE W/O CONTRAST (11/01/2024 10:08 AM CIVIL ENGINE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) Anatomical Region Laterality Modality Spine, L-spine N/A Magnetic Resonan ce 11/01/2024 11:1 1 AM CIV[employer] ENG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 Impressions 11/01/2024 11:13 AM CIVIL ENGINE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 IMPRESSION: Multilevel lumbar degenerative disc and joint disease, as detailed level by level above. There is up to mild spinal canal stenosis at L4-L5 and multilevel mild neural foraminal stenosis. Significant opposing STIR signal hyperintensity and T1 hypointensity at the L1-L2 endplates with small amount of STIR signal hyperintensity in the disc space. There is no associated paravertebral/prevertebral soft tissue thickening or edema and this may represent edema related to disc degeneration. Infectious/inflammatory laboratory markers and short interval MRI follow-up without and with contrast can be obtained as clinically warranted. Narrative 11/01/2024 11:13 AM CIVIL 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 EXAM DESCRIPTION: MRI L-SPINE W/O CONTRAST REASON FOR STUDY: muscle weakness in arms and legs, worse to right side, and right foot drop x about 1 year. TECHNIQUE: Sagittal and Axial imaging includes T1, T2, STIR sequences. COMPARISON: None available FINDINGS: SEGMENTATION: No transitional anatomy. The lowest well-developed disc space is labeled L5-S1. ALIGNMENT: Mild L1 on L2 and L2 on L3 retrolisthesis. VERTEBRAE: There is significant opposing STIR signal hyperintensity and T1 hypointensity at the L1-L2 endplates with small amount of STIR signal hyperintensity in the disc space. There is no associated paravertebral/prevertebral soft tissue thickening or edema and this may represent edema related to disc degeneration. Please correlate clinically. Infectious/inflammatory laboratory markers and short interval MRI follow-up without and with contrast could be obtained as clinically warranted.. There are multiple small Schmorl's nodes. No MR evidence for acute fracture or aggressive bone lesion. DISC HEIGHT: Multilevel degenerative disc height loss, worst and moderate at L1-L2. HARDWARE: None in the spine. CORD/CAUDA: Normal in size and signal intensity. Conus at the L1-L2 level. LOWER THORACIC: Incompletely imaged. No stenosis seen. INDIVIDUAL DISC LEVELS: No significant disc bulge. Moderate left and mild right facet arthropathy.. No neural foraminal stenosis. No substantial spinal canal stenosis L1-2: Disc bulge and posterior osteophytes. Mild facet arthropathy. Mild right and minimal left neural foraminal stenosis. Minimal spinal canal stenosis. L2-3: Disc bulge. [id number] facet arthropathy. Ligamentum flavum thickening. Minimal narrowing of the lateral recesses. Otherwise, no spinal canal stenosis. Mild bilateral neural foraminal stenosis. L3-4: Disc bulge. Moderate bilateral facet arthropathy. Mild right and mild left neural foraminal stenosis. Very mild spinal canal stenosis L4-5: Disc bulge. Severe right and moderate to severe left facet arthropathy. Mild bilateral neural foraminal stenosis, [id number]-right. Mild spinal canal stenosis L5-S1: Mild disc bulge. Moderate left and mild right facet arthropathy. No neural foraminal or spinal canal stenosis. SACRUM: Visualized upper sacrum intact. VISUALIZED UPPER ABDOMEN: No significant abnormality. OTHER: No other significant findings. THIS IS AN ELECTRONICALLY VERIFIED FINAL REPORT 11/01/2024 11:11 AM - Electronically signed by Ej Louie M.D. MZ: KENNEY Report ID: [id number] Reading Location: [id number] Procedure Note Ej Louie MD - 11/01/2024 EXAM DESCRIPTION: MRI L-SPINE W/O CONTRAST REASON FOR STUDY: muscle weakness in arms and legs, worse to right side, and right foot drop x about 1 year. TECHNIQUE: Sagittal and Axial imaging includes T1, T2, STIR sequences. COMPARISON: None available FINDINGS: SEGMENTATION: No transitional anatomy. The lowest well-developed disc space is labeled L5-S1. ALIGNMENT: Mild L1 on L2 and L2 on L3 retrolisthesis. VERTEBRAE: There is significant opposing STIR signal hyperintensity and T1 hypointensity at the L1-L2 endplates with small amount of STIR signal hyperintensity in the disc space. There is no associated paravertebral/prevertebral soft tissue thickening or edema and this may represent edema related to disc degeneration. Please correlate clinically. Infectious/inflammatory laboratory markers and short interval MRI follow-up without and with contrast could be obtained as clinically warranted.. There are multiple small Schmorl's nodes. No MR evidence for acute fracture or aggressive bone lesion. DISC HEIGHT: Multilevel degenerative disc height loss, worst and moderate at L1-L2. HARDWARE: None in the spine. CORD/CAUDA: Normal in size and signal intensity. Conus at the L1-L2 level. LOWER THORACIC: Incompletely imaged. No stenosis seen. INDIVIDUAL DISC LEVELS: No significant disc bulge. Moderate left and mild right facet arthropathy.. No neural foraminal stenosis. No substantial spinal canal stenosis L1-2: Disc bulge and posterior osteophytes. Mild facet arthropathy. Mild right and minimal left neural foraminal stenosis. Minimal spinal canal stenosis. L2-3: Disc bulge. Rtiz-ak-kcqvpvxc facet arthropathy. Ligamentum flavum thickening. Minimal narrowing of the lateral recesses. Otherwise, no spinal canal stenosis. Mild bilateral neural foraminal stenosis. L3-4: Disc bulge. Moderate bilateral facet arthropathy. Mild right and mild left neural foraminal stenosis. Very mild spinal canal stenosis L4-5: Disc bulge. Severe right and moderate to severe left facet arthropathy. Mild bilateral neural foraminal stenosis, ebpe-ovuhjhy-itwj-right. Mild spinal canal stenosis L5-S1: Mild disc bulge. Moderate left and mild right facet arthropathy. No neural foraminal or spinal canal stenosis. SACRUM: Visualized upper sacrum intact. VISUALIZED UPPER ABDOMEN: No significant abnormality. OTHER: No other significant findings. THIS IS AN ELECTRONICALLY VERIFIED FINAL REPORT 11/01/2024 11:11 AM - Electronically signed by Ej Louie M.D. 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 There is up to mild spinal canal stenosis at L4-L5 and multilevel mild neural foraminal stenosis. Significant opposing STIR signal hyperintensity and T1 hypointensity at the L1-L2 endplates with small amount of STIR signal hyperintensity in the disc space. There is no associated paravertebral/prevertebral soft tissue thickening or edema and this may represent edema related to disc degeneration. Infectious/inflammatory laboratory markers and short interval MRI follow-up without and with contrast can be obtained as clinically warranted. Nikolas Hector MD IMG MR ORDERABLES Final Resu lt from Last 3 Months Insurance [facility] Care Teams Fast Food Worker Relationship Specialty Start Date End Date Gautam Rey MD [address] [place] [address] PCP - General Internal Medicine 07/08/24 Nikolas Hector MD [address] [place] [id number] Consulting Physician Neurology 07/25/24
--- OUTSIDE RECORDS SUMMARY | 2024-11-10 10:11 | XMS_ITS | Referral Summary ---
Author Organization [facility] Building [address] Address [address] [place] [address] Care Team Providers Care Head Counselor Name Role Phone Gautam Rey MD Primary Care Provider [phone] Allergies Active Allergy Reactions Criticality Noted Date Comments Diphenhydramine Other (See comments),Anxiety High 11/01/2012 restless and fidgety Escitalopram Unknown High 10/28/2018 Omeprazole Other (See comments) High 10/28/2018 Pantoprazole Unknown High 10/28/2018 Suvorexant Other (See comments) High 10/28/2018 Trazodone Other (See comments) High 10/28/2018 Medications atorvastatin (LIPITOR) 40 mg tablet atorvastatin 40 mg tablet 9 Active aspirin 81 mg chewable tablet Take by mouth 9 Active multivit,tx with iron,minerals (COMPLETE MULTIVITAMIN ORAL) Complete Multivitamin Active metFORMIN (GLUCOPHAGE) 500 mg tablet 2 Active doxylamine (UNISOM) 25 mg tablet Take by mouth 9 Active Active Problems Problem Noted Date Diagnosed Date TIA (transient ischemic attack) Social History Tobacco Use Types Packs/Day Years Used Date Smoking Tobacco: Never Tobacco Cessation:Counseling Given: Not Answered Personal Safety Answer Date Recorded Getting School Help Needed Not on file 11/12 Comments Unknown Sex and Gender Information Value Date Recorded Sex Assigned at Not on file Legal Sex Female 3:33 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 Gender Identity Not on file Sexual Orientation Not on file Last Filed Vital Signs Vital Sign Reading Time Taken Comments Blood Pressure 146/82 08/08/2022 10:42 AM DROP FORGE OPERATOR Pulse 99 08/08/2022 10:42 AM DROP FORGE OPERATOR Temperature 36.7 C (98.1 F) 11/02/2012 11:37 AM DROP FORGE OPERATOR Respiratory Rate - - Oxygen Saturation 97% 08/08/2022 10:42 AM DROP FORGE OPERATOR Inhaled Oxygen Concentration - - Weight 71.5 kg (157 lb 9.6 oz) 08/08/2022 10:42 AM DROP FORGE OPERATOR Height 167.6 cm (5' 5.98 ) 08/08/2022 10:42 AM Sean FERMIN Body Mass Index 25.45 08/08/2022 10:42 AM DROP FORGE OPERATOR Plan of Treatment Not on file Insurance [employer] HMO REF Care Teams Head Counselor Relationship Specialty Start Date End Date Gautam Rey MD PCP - General Internal Medicine 06/09/22
--- OUTSIDE RECORDS SUMMARY | 2024-11-10 10:11 | XMS_ITS | Data Portability ---
Author Organization [facility] Address [address] [facility] [place] [address] Assessment Encounter Date Assessment Date Assessment LastModified by Organization Details LastModified Time 11/16/2023 11/16/2023 Blood work urina lysis follow-up in 6 months obtain old records she has been reluctant to take metformin in the past and cholesterol medicine so she says. [email or web address] Not available 11/29/2023 16:34:10 05/10/2024 05/10/2024 We will obtain b lood work see her back in 6 weeks. We may need to stop her statin just to see if she gets better Not available 05/29/2024 12:08:01 06/21/2024 06/21/2024 subjective weakn ess we will check total CK I will check thyroid antibodies all delays pseudocholinesterase blocking antibodies regular follow up in 3 months continue dietary strategies for diabetes continue dietary strategies for hyperlipidemia as we stopped statin because of the subjective weakness again this is something that has been going on for quite some time [email or web address] Not available 07/03/2024 12:09:13 09/27/2024 09/27/2024 because of her m uscle complaints we have held the statin she needs blood work to re-evaluate her diabetes and her lipid status I believe she is seeing Neurology in the next month or 2 she will see me in 4 months [email or web address] Not available 10/02/2024 18:42:56 Plan of Treatment Reminders Order Date Submit Date Provider Last Modified By Organization Details Last Modified Time Details Appointments ANY 15 2024 09:15A Dilip Rey MD Not available Not available Not available Lab CK (creatine kinase), total, serum 2023 024 [facility] [address], [place], [address], 07/05/2024 13:15:05 thyroglob ulin Ab, serum 2023 024 ELYRIA Rogelio, [address], [place], [address], 07/05/2024 13:15:08 aldolase, serum 2023 024 KAITLINASIA Damon, [address], [place], [address], 07/05/2024 13:15:07 acetylcho line receptor Ab, serum 2023 024 KAITLINASIA Mercado, [address], [place], [address], 07/05/2024 13:15:09 CK (creatine kinase), total, serum 2023 024 KAITLIN Damon, [address], [place], [address], 05/11/2024 19:09:29 JORGE (antinucl ear antibodie s) screen, serum 2023 024 KAITLIN Mercado, [address], [place], [address], 05/11/2024 19:09:28 rf (rheumato id factor), serum 2023 024 KAITLIN Mercado, [address], [place], [address], 05/11/2024 19:09:31 CBC w/ auto diff 2023 024 KAITLIN Mercado, [address], [place], [address], 05/11/2024 19:09:30 CMP, serum or plasma 2023 024 KAITLIN Mercado, [address], [place], [address], 05/11/2024 19:09:28 T3, free, serum or plasma 2023 024 KAITLIN Mercado, [address], [place], [address], 05/11/2024 19:09:32 T4, free, serum 2023 024 KAITLIN Mercado, [address], [place], [address], 05/11/2024 19:09:32 TSH, ultra-sen sitive, serum 2023 024 KAITLIN Mercado, [address], [place], [address], 05/11/2024 19:09:30 HbA1c (hemoglob in A1c), blood 2023 024 In-Office Order, Internal Use Only DO Not Attach Compendium DO Not Attach Compendium, Do Not Delete/merge, [id number] 11/16/2023 11:48:38 CBC w/ auto diff 2023 024 KAITLIN Mercado, [address], [place], [address], 11/17/2023 11:15:08 lipid panel, serum 2023 024 KAITLIN Mercado, [address], [place], [address], 11/17/2023 11:15:06 CMP, serum or plasma 2023 024 KAITLIN Mercado, [address], [place], [address], 11/17/2023 11:15:07 Referral urologist referral 2014 015 Not available 06/12/2015 13:22:13 Procedures None recorded. Surgeries None recorded. Imaging mammogram , screening [address] [facility] [address] [place], [address], 10/16/2015 15:33:53 Medication Orders Macrobid 100 mg capsule 2023 024 [facility] [address] [facility], [place], [address], 06/21/2024 11:35:51 Patient TargetsNo targets recorded. Patient Instructions Encounter Date Encounter Id Patient Instructions Last Modified By Organization Details Last Modified Time 06/12/2015 [id number] learning about breast cancer screening cinthia Not available 06/12/2015 13:19:46 Reason for Referral Urologist Referral for Cysto amie Referring Physician: Mega Segovia, COMPENSATOR, Encounter Date: 06/12/2015 Results Created Date Observation Date Name Description Value Unit Range Abnormal Flag Note LastModifiedBy Organization Detail LastModifiedTime 05/18/2005/18/2023 Compr ehens tracy metab olic 1999 panel - Serum or Plasm a sodium sodiu m Not Available Not Available 10/11/2024 16:10:25 05/18/20 23 05/18/2023 Compr ehens tracy metab olic 2000 panel - Serum or Plasm a potassium potas sium Not Available Not Available 10/11/2024 16:10:25 05/18/20 23 05/18/2023 Compr ehens tracy metab olic 2000 panel - Serum or Plasm a chloride chlor shweta Not Available Not Available 10/11/2024 16:10:25 05/18/20 23 05/18/2023 Compr ehens tracy metab olic 2000 panel - Serum or Plasm a carbon dioxide carbo n dioxi de Not Available Not Available 10/11/2024 16:10:25 05/18/20 23 05/18/2023 Compr ehens tracy metab olic 2000 panel - Serum or Plasm a anion gap low anion gap Not Available Not Available 10/11/2024 16:10:25 05/18/20 23 05/18/2023 Compr ehens tracy metab olic 1999 panel - Serum or Plasm a glucose high gluco se Not Available Not Available 10/11/2024 16:10:25 05/18/20 23 05/18/2023 Compr ehens tracy metab olic 1999 panel - Serum or Plasm a BUN BUN Not Available Not Availa ble 10/11/2024 16:10:25 05/18/20 23 05/18/2023 Compr ehens tracy metab olic 1999 panel - Serum or Plasm a creatinine creat inine Not Available Not Available 10/11/2024 16:10:25 05/18/20 23 05/18/2023 Compr ehens tracy metab olic 2000 panel - Serum or Plasm a GFR >60 GFR Not Available Not Availa ble 10/11/2024 16:10:25 05/18/20 23 05/18/2023 Compr ehens tracy metab olic 2000 panel - Serum or Plasm a alkaline phosphatase alkal ine phosp hatas e Not Available Not Available 10/11/2024 16:10:25 05/18/20 23 05/18/2023 Compr ehens tracy metab olic 1999 panel - Serum or Plasm a alanine aminotransfe rase julian ne amino trans feras e Not Available Not Available 10/11/2024 16:10:25 05/18/20 23 05/18/2023 Compr ehens tracy metab olic 1999 panel - Serum or Plasm a aspartate aminotransfe rase aspar tyler amino trans feras e Not Available Not Available 10/11/2024 16:10:25 05/18/20 23 05/18/2023 Compr ehens tracy metab olic 2000 panel - Serum or Plasm a bilirubin, total bilir ubin, total Not Available Not Available 10/11/2024 16:10:25 05/18/20 23 05/18/2023 Compr ehens tracy metab olic 2000 panel - Serum or Plasm a calcium high calci um Not Available Not Available 10/11/2024 16:10:25 05/18/20 23 05/18/2023 Compr ehens tracy metab olic 2000 panel - Serum or Plasm a total protein total prote in Not Available Not Available 10/11/2024 16:10:25 05/18/20 23 05/18/2023 Compr ehens tracy metab ol 1999 panel - Serum or Plasm a albumin album in Not Available Not Available 10/11/2024 16:10:25 05/18/20 23 05/18/2023 Compr ehens tracy metab olic 1999 panel - Serum or Plasm a globulin globu elvis Not Available Not Available 10/11/2024 16:10:25 05/18/20 23 05/18/2023 Compr ehens tracy metab olic 1999 panel - Serum or Plasm a A/G ratio A/G ratio Not Available Not Available 10/11/2024 16:10:25 05/18/20 23 05/18/2023 Lipid 1996 panel - Serum or Plasm a cholesterol justina stero l Not Available Not Available 10/11/2024 16:10:25 05/18/20 23 05/18/2023 Lipid 1996 panel - Serum or Plasm a triglyceride s high trigl yceri huma Not Available Not Available 10/11/2024 16:10:25 05/18/20 23 05/18/2023 Lipid 1996 panel - Serum or Plasm a HDL cholesterol HDL justina stero l Not Available Not Available 10/11/2024 16:10:25 05/18/20 23 05/18/2023 Lipid 1996 panel - Serum or Plasm a cholesterol in LDL [mass/volume ] in serum or plasma LDL justina stero l, calcu lated Not Available Not Available 10/11/2024 16:10:25 05/18/20 23 05/18/2023 Hemog lobin A1c/H emogl obin. total in Blood by HPLC hemoglobin A1C/hemoglob in.total in blood high HA1C Not Available Not Available 10/01 16:10:25 05/18/20 23 05/18/2023 Thyro tropi n [Unit s/vol ume] in Serum or Plasm a thyroid-stim ulating hormone thyro id-st imula ting hormo ne Not Available Not Available 10/11/2024 16:10:25 05/18/20 23 05/18/2023 Thyro xine (T4) free [Mass /volu me] in Serum or Plasm a free T4 free T4 Not Available Not Available 10/11/2024 16:10:25 05/18/20 23 05/18/2023 Triio dothy johnson e (T3) Free [Mass /volu me] in Serum or Plasm a free T3 free T3 Not Available Not Available 10/11/2024 16:10:25 05/18/20 23 05/18/2023 CBC W Auto Diffe renti al panel - Blood white blood cells white blood cells Not Available Not Available 10/11/2024 16:10:25 05/18/20 23 05/18/2023 CBC W Auto Diffe renti al panel - Blood red blood cells red blood cells Not Available Not Available 10/11/2024 16:10:25 05/18/20 23 05/18/2023 CBC W Auto Diffe renti al panel - Blood hemoglobin hemog lobin Not Available Not Available 10/11/2024 16:10:25 05/18/20 23 05/18/2023 CBC W Auto Diffe renti al panel - Blood hematocrit hemat ocrit Not Available Not Available 10/11/2024 16:10:25 05/18/20 23 05/18/2023 CBC W Auto Diffe renti al panel - Blood mean red cell volume mean red cell volum e Not Available Not Available 10/11/2024 16:10:25 05/18/20 23 05/18/2023 CBC W Auto Diffe renti al panel - Blood mean red cell hemoglobin mean red cell hemog lobin Not Available Not Available 10/11/2024 16:10:25 05/18/20 23 05/18/2023 CBC W Auto Diffe renti al panel - Blood mean RBC HGB concentratio n mean RBC HGB silvino ntrat ion Not Available Not Available 10/11/2024 16:10:25 05/18/20 23 05/18/2023 CBC W Auto Diffe renti al panel - Blood red cell distribution width red cell distr ibuti on width Not Available Not Available 10/11/2024 16:10:25 05/18/20 23 05/18/2023 CBC W Auto Diffe renti al panel - Blood platelets plate lets Not Available Not Available 10/11/2024 16:10:25 05/18/20 23 05/18/2023 CBC W Auto Diffe renti al panel - Blood mean platelet volume mean plate let volum e Not Available Not Available 10/11/2024 16:10:25 05/18/20 23 05/18/2023 CBC W Auto Diffe renti al panel - Blood neutrophils neutr ophil s Not Available Not Available 10/11/2024 16:10:25 05/18/20 23 05/18/2023 CBC W Auto Diffe renti al panel - Blood lymphocytes lymph ocyte s Not Available Not Available 10/11/2024 16:10:25 05/18/20 23 05/18/2023 CBC W Auto Diffe renti al panel - Blood monocytes monoc ytes Not Available Not Available 10/11/2024 16:10:25 05/18/20 23 05/18/2023 CBC W Auto Diffe renti al panel - Blood eosinophils eosin ophil s Not Available Not Available 10/11/2024 16:10:25 05/18/20 23 05/18/2023 CBC W Auto Diffe renti al panel - Blood basophils basop hils Not Available Not Available 10/11/2024 16:10:25 05/18/20 23 05/18/2023 CBC W Auto Diffe renti al panel - Blood immature granulocytes immat ure granu locyt es Not Available Not Available 10/11/2024 16:10:25 05/18/20 23 05/18/2023 CBC W Auto Diffe renti al panel - Blood neutrophils, absolute count neutr ophil s, absol [place] count Not Available Not Available 10/11/2024 16:10:25 05/18/20 23 05/18/2023 CBC W Auto Diffe renti al panel - Blood lymphocytes, absolute count lymph ocyte s, absol [place] count Not Available Not Available 10/11/2024 16:10:25 05/18/20 23 05/18/2023 CBC W Auto Diffe renti al panel - Blood monocytes, absolute count monoc ytes, absol [place] count Not Available Not Available 10/11/2024 16:10:25 05/18/20 23 05/18/2023 CBC W Auto Diffe renti al panel - Blood eosinophils, absolute count eosin ophil s, absol [place] count Not Available Not Available 10/11/2024 16:10:25 05/18/20 23 05/18/2023 CBC W Auto Diffe renti al panel - Blood basophils, absolute count basop hils, absol [place] count Not Available Not Available 10/11/2024 16:10:25 05/18/20 23 05/18/2023 CBC W Auto Diffe renti al panel - Blood immature granulocytes ,absolute immat ure granu locyt es,ab solut e Not Available Not Available 10/11/2024 16:10:25 05/18/20 23 05/18/2023 CBC W Auto Diffe renti al panel - Blood nucleated red blood cells nucle ated red blood cells Not Available Not Available 10/11/2024 16:10:25 05/18/20 23 05/18/2023 CBC W Auto Diffe renti al panel - Blood NRBC# NRBC# Not Available Not Availa ble 10/11/2024 16:10:25 11/16/19 24 11/17/2023 LIPID PANEL cholesterol, total 175 mg/dL 100-19 9 Not Available [facility] ([facility]) [address] [place], [address], 11/17/2023 11:15:06 11/16/19 24 11/17/2023 LIPID PANEL triglyceride s 186 mg/dL 0-149 above high normal Not Available [facility] ([facility]) [address] [facility], [place], [address], 11/17/2023 11:15:06 11/16/19 24 11/17/2023 LIPID PANEL HDL cholesterol 53 mg/dL >39 Not Available [facility] [address] [facility], [place], [address], 11/17/2023 11:15:06 11/16/19 24 11/17/2023 LIPID PANEL VLDL cholesterol vladimir 32 mg/dL 5-40 Not Available [facility] [address] [place], [address], 11/17/2023 11:15:06 11/16/19 24 11/17/2023 LIPID PANEL LDL chol calc ([facility]) 90 mg/dL 0-99 Not Available [facility] [address] [facility], [place], [address], 11/17/2023 11:15:06 11/16/19 24 11/17/2023 CMP14 glucose 128 mg/dL 70-99 above high normal Not Available [facility] ([facility] [address] [facility], [place], [address], 11/17/2023 11:15:07 11/16/19 24 11/17/2023 CMP14 BUN 11 mg/dL 8-27 Not Available [facility] ([facility] [address] [facility], [place], [address], 11/17/2023 11:15:07 11/16/19 24 11/17/2023 CMP14 creatinine 0.74 mg/dL 0.57-1 .00 Not Available [facility] ([facility] [address] [place], [address], 11/17/2023 11:15:07 11/16/19 24 11/17/2023 CMP14 eGFR 84 mL/mi n/1.7 3 >59 Not Available [facility] ([facility] [address] [facility], [place], [address], 11/17/2023 11:15:07 11/16/19 24 11/17/2023 CMP14 sodium 142 mmol/ L 134-14 4 Not Available [facility] ([facility] [address] [place], [address], 11/17/2023 11:15:07 11/16/19 24 11/17/2023 CMP14 potassium 4.4 mmol/ L 3.5-5. 2 Not Available [facility] ([facility] [address] [place], [address], 11/17/2023 11:15:07 11/16/19 24 11/17/2023 CMP14 chloride 105 mmol/ L 96-106 Not Available [facility] ([facility]) [address] [facility], [place], [address], 11/17/2023 11:15:07 11/16/19 24 11/17/2023 CMP14 carbon dioxide, total 24 mmol/ L 20-29 Not Available [facility] [address] [facility], [place], [address], 11/17/2023 11:15:07 11/16/19 24 11/17/2023 CMP14 calcium 10.3 mg/dL 8.7-10 .3 Not Available [facility] ([facility] [address] [facility], [place], [address], 11/17/2023 11:15:07 11/16/19 24 11/17/2023 CMP14 protein, total 6.7 g/dL 6.0-8. 5 Not Available [facility] [address] [facility], [place], [address], 11/17/2023 11:15:07 11/16/19 24 11/17/2023 CMP14 albumin 4.4 g/dL 3.8-4. 8 Not Available [facility] [address] [facility], [place], [address], 11/17/2023 11:15:07 11/16/19 24 11/17/2023 CMP14 globulin, total 2.3 g/dL 1.5-4. 5 Not Available [facility] [address] [place], [address], 11/17/2023 11:15:07 11/16/19 24 11/17/2023 CMP14 A/G ratio 1.9 1.2-2. 2 Not Available [facility] ([facility] [address] [place], [address], 11/17/2023 11:15:07 11/16/19 24 11/17/2023 CMP14 bilirubin, total 0.6 mg/dL 0.0-1. 2 Not Available [facility] ([facility] [address] [place], [address], 11/17/2023 11:15:07 11/16/19 24 11/17/2023 CMP14 alkaline phosphatase 89 IU/L 44-121 Not Available [facility] [address] [place], [address], 11/17/2023 11:15:07 11/16/19 24 11/17/2023 CMP14 AST (SGOT) 25 IU/L 0-40 Not Avail able [facility] ([facility] [address] [place], [address], 11/17/2023 11:15:07 11/16/19 24 11/17/2023 CMP14 ALT (SGPT) 23 IU/L 0-32 Not Avail able [facility] [address] [place], [address], 11/17/2023 11:15:07 11/16/19 24 11/17/2023 CBC WITH DIFFE RENTI AL/PL ATELE T WBC 6.1 x10e3 /uL 3.4-10 .8 Not Available [facility] ([facility] [address] [place], [address], 11/17/2023 11:15:08 11/16/19 24 11/17/2023 CBC WITH DIFFE RENTI AL/PL ATELE T RBC 5.19 x10e6 /uL 3.77-5 .28 Not Available [facility] [address] [place], [address], 11/17/2023 11:15:08 11/16/19 24 11/17/2023 CBC WITH DIFFE RENTI AL/PL ATELE T hemoglobin 14.3 g/dL 11.1-1 5.9 Not Available [facility] [address] [facility], [place], [address], 11/17/2023 11:15:08 11/16/19 24 11/17/2023 CBC WITH DIFFE RENTI AL/PL ATELE T hematocrit 44.1 % 34.0-4 6.6 Not Available [facility] [address] [facility], [place], [address], 11/17/2023 11:15:08 11/16/19 24 11/17/2023 CBC WITH DIFFE RENTI AL/PL ATELE T MCV 85 fL 79-97 Not Available [facility] [address] [facility], [place], [address], 11/17/2023 11:15:08 11/16/19 24 11/17/2023 CBC WITH DIFFE RENTI AL/PL ATELE T MCH 27.6 pg 26.6-3 3.0 Not Available [facility] [address] [facility], [place], [address], 11/17/2023 11:15:08 11/16/19 24 11/17/2023 CBC WITH DIFFE RENTI AL/PL ATELE T MCHC 32.4 g/dL 31.5-3 5.7 Not Available [facility] [address] [facility], [place], [address], 11/17/2023 11:15:08 11/16/19 24 11/17/2023 CBC WITH DIFFE RENTI AL/PL ATELE T RDW 12.3 % 11.7-1 5.4 Not Available [facility] [address] [facility], [place], [address], 11/17/2023 11:15:08 11/16/19 24 11/17/2023 CBC WITH DIFFE RENTI AL/PL ATELE T platelets 216 x10e3 /uL 150-45 0 Not Available [facility] [address] [facility], [place], [address], 11/17/2023 11:15:08 11/16/19 24 11/17/2023 CBC WITH DIFFE RENTI AL/PL ATELE T neutrophils 66 % notest ab. Not Available [facility] [address] [facility], [place], [address], 11/17/2023 11:15:08 11/16/19 24 11/17/2023 CBC WITH DIFFE RENTI AL/PL ATELE T lymphs 25 % notest ab. Not Available [facility] [address] [facility], [place], [address], 11/17/2023 11:15:08 11/16/19 24 11/17/2023 CBC WITH DIFFE RENTI AL/PL ATELE T monocytes 6 % notest ab. Not Available [facility] [address] [facility], [place], [address], 11/17/2023 11:15:08 11/16/19 24 11/17/2023 CBC WITH DIFFE RENTI AL/PL ATELE T eos 2 % notest ab. Not Available [facility] [address] [facility], [place], [address], 11/17/2023 11:15:08 11/16/19 24 11/17/2023 CBC WITH DIFFE RENTI AL/PL ATELE T basos 1 % notest ab. Not Available [facility] [address] [facility], [place], [address], 11/17/2023 11:15:08 11/16/19 24 11/17/2023 CBC WITH DIFFE RENTI AL/PL ATELE T neutrophils (absolute) 4.0 x10e3 /uL 1.4-7. 0 Not Available [facility] ([facility] [address] [facility], [place], [address], 11/17/2023 11:15:08 11/16/19 24 11/17/2023 CBC WITH DIFFE RENTI AL/PL ATELE T lymphs (absolute) 1.5 x10e3 /uL 0.7-3. 1 Not Available [facility] [address] [facility], [place], [address], 11/17/2023 11:15:08 11/16/19 24 11/17/2023 CBC WITH DIFFE RENTI AL/PL ATELE T monocytes(ab solute) 0.4 x10e3 /uL 0.1-0. 9 Not Available [facility] [address] [facility], [place], [address], 11/17/2023 11:15:08 11/16/19 24 11/17/2023 CBC WITH DIFFE RENTI AL/PL ATELE T eos (absolute) 0.1 x10e3 /uL 0.0-0. 4 Not Available [facility] ([facility] [address] [facility], [place], [address], 11/17/2023 11:15:08 11/16/19 24 11/17/2023 CBC WITH DIFFE RENTI AL/PL ATELE T baso (absolute) 0.0 x10e3 /uL 0.0-0. 2 Not Available [facility] ([facility] [address] [facility], [place], [address], 11/17/2023 11:15:08 11/16/19 24 11/17/2023 CBC WITH DIFFE RENTI AL/PL ATELE T immature granulocytes 0 % notest ab. Not Available [facility] [address] [facility], [place], [address], 11/17/2023 11:15:08 11/16/19 24 11/17/2023 CBC WITH DIFFE RENTI AL/PL ATELE T immature grans (abs) 0.0 x10e3 /uL 0.0-0. 1 Not Available [facility] ([facility] [address] [facility], [place], [address], 11/17/2023 11:15:08 11/16/19 24 11/16/2023 HbA1c (hemo globi n A1c), blood HbA1c 6.7 Not Available In-Office Order Internal Use Only DO Not Attach Compendium DO Not Attach Compendium, Do Not Delete/merge, [id number] 11/16/2023 10:38:13 05/10/2005/11/2024 JORGE W/REF PRISCILLA JORGE direct NEGATI VE negati ve Not Available [facility] ([facility] [address] [facility], [place], [address], 05/11/2024 19:09:28 05/10/20 24 05/11/2024 COMP. METAB OLIC PANEL (14) glucose 139 mg/dL 70-99 above high normal Not Available [facility] ([facility] [address] [place] [place], [address], 05/11/2024 19:09:28 05/10/20 24 05/11/2024 COMP. METAB OLIC PANEL (14) BUN 7 mg/dL 8-27 below low normal Not Available [facility] ([facility] [address] [facility], [place], [address], 05/11/2024 19:09:28 05/10/20 24 05/11/2024 COMP. METAB OLIC PANEL (14) creatinine 0.76 mg/dL 0.57-1 .00 Not Available [facility] ([facility] [address] [place] [place], [address], 05/11/2024 19:09:28 05/10/20 24 05/11/2024 COMP. METAB OLIC PANEL (14) eGFR 81 mL/mi n/1.7 3 >59 Not Available [facility] ([facility] [address] [place] [place], [address], 05/11/2024 19:09:28 05/10/20 24 05/11/2024 COMP. METAB OLIC PANEL (14) BUN/creatini ne ratio 9 12-28 below low normal Not Available [facility] ([facility] [address] [place] [place], [address], 05/11/2024 19:09:28 05/10/20 24 05/11/2024 COMP. METAB OLIC PANEL (14) sodium 142 mmol/ L 134-14 4 Not Available [facility] ([facility] [address] [place] [place], [address], 05/11/2024 19:09:28 05/10/20 24 05/11/2024 COMP. METAB OLIC PANEL (14) potassium 4.6 mmol/ L 3.5-5. 2 Not Available [facility] ([facility] [address] [place] [place], [address], 05/11/2024 19:09:28 05/10/20 24 05/11/2024 COMP. METAB OLIC PANEL (14) chloride 102 mmol/ L 96-106 Not Available [facility] [address] [place] [place], [address], 05/11/2024 19:09:28 05/10/20 24 05/11/2024 COMP. METAB OLIC PANEL (14) carbon dioxide, total 23 mmol/ L 20-29 Not Available [facility] [address] [place] [place], [address], 05/11/2024 19:09:28 05/10/20 24 05/11/2024 COMP. METAB OLIC PANEL (14) calcium 10.5 mg/dL 8.7-10 .3 above high normal Not Available [facility] ([facility] [address] [place], [address], 05/11/2024 19:09:28 05/10/20 24 05/11/2024 COMP. METAB OLIC PANEL (14) protein, total 6.9 g/dL 6.0-8. 5 Not Available [facility] ([facility] [address] [place], [address], 05/11/2024 19:09:28 05/10/20 24 05/11/2024 COMP. METAB OLIC PANEL (14) albumin 4.3 g/dL 3.8-4. 8 Not Available [facility] ([facility] [address], [place], [address], 05/11/2024 19:09:28 05/10/20 24 05/11/2024 COMP. METAB OLIC PANEL (14) globulin, total 2.6 g/dL 1.5-4. 5 Not Available [facility] ([facility] [address], [place], [address], 05/11/2024 19:09:28 05/10/20 24 05/11/2024 COMP. METAB OLIC PANEL (14) bilirubin, total 0.5 mg/dL 0.0-1. 2 Not Available [facility] ([facility] [address] [place], [address], 05/11/2024 19:09:28 05/10/20 24 05/11/2024 COMP. METAB OLIC PANEL (14) alkaline phosphatase 79 IU/L 44-121 Not Available [facility]) [address], [place], [address], 05/11/2024 19:09:28 05/10/20 24 05/11/2024 COMP. METAB OLIC PANEL (14) AST (SGOT) 25 IU/L 0-40 Not Available [facility] ([facility]) [address] [place], [address], 05/11/2024 19:09:28 05/10/20 24 05/11/2024 COMP. METAB OLIC PANEL (14) ALT (SGPT) 18 IU/L 0-32 Not Available [facility] ([facility]) [address] [facility], [place], [address], 05/11/2024 19:09:28 05/10/2005/11/2024 CK, TOTAL creatine kinase,total 273 U/L 32-182 above high normal Not Available [facility] ([facility]) [address] [facility], [place], [address], 05/11/2024 19:09:29 05/10/2005/11/2024 TSH TSH 0.836 uIU/m L 0.450- 4.500 Not Available [facility] ([facility]) [address] [place], [address], 05/11/2024 19:09:30 05/10/20 24 05/11/2024 CBC WITH DIFFE RENTI AL/PL ATELE T WBC 5.9 x10e3 /uL 3.4-10 .8 Not Available [facility] ([facility]) [address] [place], [address], 05/11/2024 19:09:30 05/10/20 24 05/11/2024 CBC WITH DIFFE RENTI AL/PL ATELE T RBC 5.13 x10e6 /uL 3.77-5 .28 Not Available [facility] ([facility]) [address] [place], [address], 05/11/2024 19:09:30 05/10/2005/11/2024 CBC WITH DIFFE RENTI AL/PL ATELE T hemoglobin 14.6 g/dL 11.1-1 5.9 Not Available [facility] ([facility]) [address] [place], [address], 05/11/2024 19:09:30 05/10/20 24 05/11/2024 CBC WITH DIFFE RENTI AL/PL ATELE T hematocrit 45.1 % 34.0-4 6.6 Not Available [facility] ([facility]) [address] [facility] [place], [address], 05/11/2024 19:09:30 05/10/20 24 05/11/2024 CBC WITH DIFFE RENTI AL/PL ATELE T MCV 88 fL 79-97 Not Available [facility] ([facility]) [address] [facility], [place], [address], 05/11/2024 19:09:30 05/10/20 24 05/11/2024 CBC WITH DIFFE RENTI AL/PL ATELE T MCH 28.5 pg 26.6-3 3.0 Not Available [facility] ([facility]) [address] [facility], [place], [address], 05/11/2024 19:09:30 05/10/20 24 05/11/2024 CBC WITH DIFFE RENTI AL/PL ATELE T MCHC 32.4 g/dL 31.5-3 5.7 Not Available [facility] ([facility]) [address] [facility], [place], [address], 05/11/2024 19:09:30 05/10/20 24 05/11/2024 CBC WITH DIFFE RENTI AL/PL ATELE T RDW 12.1 % 11.7-1 5.4 Not Available [facility] ([facility]) [address] [facility], [place], [address], 05/11/2024 19:09:30 05/10/20 24 05/11/2024 CBC WITH DIFFE RENTI AL/PL ATELE T platelets 242 x10e3 /uL 150-45 0 Not Available [facility] ([facility]) [address] [facility], [place], [address], 05/11/2024 19:09:30 05/10/20 24 05/11/2024 CBC WITH DIFFE RENTI AL/PL ATELE T neutrophils 61 % notest ab. Not Available [facility] ([facility]) [address] [facility], [place], [address], 05/11/2024 19:09:30 05/10/20 24 05/11/2024 CBC WITH DIFFE RENTI AL/PL ATELE T lymphs 29 % notest ab. Not Available [facility] ([facility]) [address] [facility], [place], [address], 05/11/2024 19:09:30 05/10/20 24 05/11/2024 CBC WITH DIFFE RENTI AL/PL ATELE T monocytes 7 % notest ab. Not Available [facility] ([facility]) [address] [facility], [place], [address], 05/11/2024 19:09:30 05/10/20 24 05/11/2024 CBC WITH DIFFE RENTI AL/PL ATELE T eos 2 % notest ab. Not Available [facility] ([facility]) [address] [facility], [place], [address], 05/11/2024 19:09:30 05/10/20 24 05/11/2024 CBC WITH DIFFE RENTI AL/PL ATELE T basos 1 % notest ab. Not Available [facility] ([facility]) [address] [facility], [place], [address], 05/11/2024 19:09:30 05/10/20 24 05/11/2024 CBC WITH DIFFE RENTI AL/PL ATELE T neutrophils (absolute) 3.7 x10e3 /uL 1.4-7. 0 Not Available [facility] ([facility]) [address] [facility], [place], [address], 05/11/2024 19:09:30 05/10/20 24 05/11/2024 CBC WITH DIFFE RENTI AL/PL ATELE T lymphs (absolute) 1.7 x10e3 /uL 0.7-3. 1 Not Available [facility] ([facility]) [address] [facility], [place], [address], 05/11/2024 19:09:30 05/10/20 24 05/11/2024 CBC WITH DIFFE RENTI AL/PL ATELE T monocytes(ab solute) 0.4 x10e3 /uL 0.1-0. 9 Not Available [facility] ([facility]) [address] [facility], [place], [address], 05/11/2024 19:09:30 05/10/20 24 05/11/2024 CBC WITH DIFFE RENTI AL/PL ATELE T eos (absolute) 0.1 x10e3 /uL 0.0-0. 4 Not Available [facility] ([facility]) [address] [place], [address], 05/11/2024 19:09:30 05/10/20 24 05/11/2024 CBC WITH DIFFE RENTI AL/PL ATELE T baso (absolute) 0.0 x10e3 /uL 0.0-0. 2 Not Available [facility] ([facility]) [address] [facility], [place], [address], 05/11/2024 19:09:30 05/10/20 24 05/11/2024 CBC WITH DIFFE RENTI AL/PL ATELE T immature granulocytes 0 % notest ab. Not Available [facility] ([facility]) [address] [place], [address], 05/11/2024 19:09:30 05/10/20 24 05/11/2024 CBC WITH DIFFE RENTI AL/PL ATELE T immature grans (abs) 0.0 x10e3 /uL 0.0-0. 1 Not Available [facility] ([facility]) [address] [place], [address], 05/11/2024 19:09:30 05/10/20 24 05/11/2024 RHEUM ATOID FACTO R (RF) rheumatoid factor (rf) 10.7 IU/mL <14.0 Not Available [facility]) [address] [place], [address], 05/11/2024 19:09:31 05/10/20 24 05/11/2024 TRIIO DOTHY JOHNSON E (T3), FREE triiodothyro nine (T3), free 2.9 pg/mL 2.0-4. 4 Not Available [facility] ([facility]) [address] [place], [address], 05/11/2024 19:09:32 05/10/20 24 05/11/2024 T4,FR EE(DI RECT) T4,free(dire ct) 1.13 NG/dL 0.82-1 .77 Not Available [facility] ([facility]) [address] [place], [address], 05/11/2024 19:09:32 06/21/20 24 06/22/2024 CK, TOTAL creatine kinase,total 270 U/L 32-182 above high normal Not Available [facility] ([facility]) [address] [place], [address], 07/05/2024 13:15:05 06/21/20 24 06/22/2024 ALDOL ASE aldolase 6.8 U/L 3.3-10 .3 Not Available [facility] ([facility]) [address] [place], [address], 07/05/2024 13:15:07 06/21/20 24 06/22/2024 THYRO ID ANTIB ODIES thyroid peroxidase (tpo) Ab 17 IU/mL 0-34 Not Available [facility] ([facility]) [address] [place], [address], 07/05/2024 13:15:08 06/21/20 24 06/22/2024 THYRO ID ANTIB ODIES thyroglobuli n antibody <1.0 IU/mL 0.0-0. 9 Thyro globu elvis Antib jose miguel measu red by Rajat Juarezt er Metho dolog y It shoul d be noted that the prese nce of thyro globu elvis antib odies may not be patho genic nor diagn ostic , espec ially at very low level s. The assay wendi hicks er has found that four perce nt of indiv idual s witho ut evide nce of thyro id disea se or autoi mmuni ty will have posit tracy TgAb level s up to 4 IU/mL . Not Available [facility] ([facility]) [address] [place], [address], 07/05/2024 13:15:08 06/21/20 24 07/05/2024 ACHR BLOCK ING ABS, SERUM AChR blocking abs, serum 14 % 0-25 Negat tracy: 0 - 25 Borde rline : 26 - 30 Posit tracy: >30 Not Available [facility] ([facility]) [address] [place], [address], 07/05/2024 13:15:09 10/04/19 25 10/05/2024 LIPID PANEL cholesterol, total 247 mg/dL 100-19 9 above high normal Not Available [facility] ([facility]) [address] [place], [address], 10/05/2024 06:19:30 10/04/19 25 10/05/2024 LIPID PANEL triglyceride s 160 mg/dL 0-149 above high normal Not Available [facility] ([facility]) [address] [place], [address], 10/05/2024 06:19:30 10/04/19 25 10/05/2024 LIPID PANEL HDL cholesterol 63 mg/dL >39 Not Available [facility]) [address] [place], [address], 10/05/2024 06:19:30 10/04/19 25 10/05/2024 LIPID PANEL VLDL cholesterol vladimir 29 mg/dL 5-40 Not Available [facility] ([facility]) [address] [place], [address], 10/05/2024 06:19:30 10/04/19 25 10/05/2024 LIPID PANEL LDL chol calc ([facility]) 155 mg/dL 0-99 above high normal Not Available [facility] ([facility]) [address] [place], [address], 10/05/2024 06:19:30 10/04/19 25 10/05/2024 COMP. METAB OLIC PANEL (14) glucose 124 mg/dL 70-99 above high normal Not Available [facility] ([facility]) [address] [place], [address], 10/05/2024 06:19:31 10/04/19 25 10/05/2024 COMP. METAB OLIC PANEL (14) BUN 13 mg/dL 8-27 Not Available [facility] ([facility]) [address] [place], [address], 10/05/2024 06:19:31 10/04/19 25 10/05/2024 COMP. METAB OLIC PANEL (14) creatinine 0.77 mg/dL 0.57-1 .00 Not Available [facility] ([facility]) [address] [place], [address], 10/05/2024 06:19:31 10/04/19 25 10/05/2024 COMP. METAB OLIC PANEL (14) eGFR 79 mL/mi n/1.7 3 >59 Not Available [facility] ([facility]) [address] [place], [address], 10/05/2024 06:19:31 10/04/19 25 10/05/2024 COMP. METAB OLIC PANEL (14) BUN/creatini ne ratio 17 12-28 Not Available [facility] ([facility]) [address] [place], [address], 10/05/2024 06:19:31 10/04/19 25 10/05/2024 COMP. METAB OLIC PANEL (14) sodium 140 mmol/ L 134-14 4 Not Available [facility] ([facility]) [address] [place] [place], [address], 10/05/2024 06:19:31 10/04/19 25 10/05/2024 COMP. METAB OLIC PANEL (14) potassium 4.4 mmol/ L 3.5-5. 2 Not Available [facility] ([facility]) [address] [place] [place], [address], 10/05/2024 06:19:31 10/04/19 25 10/05/2024 COMP. METAB OLIC PANEL (14) chloride 103 mmol/ L 96-106 Not Available [facility] ([facility]) [address] [facility], [place], [address], 10/05/2024 06:19:31 10/04/19 25 10/05/2024 COMP. METAB OLIC PANEL (14) carbon dioxide, total 24 mmol/ L 20-29 Not Available [facility] ([facility]) [address] [place] [place], [address], 10/05/2024 06:19:31 10/04/19 25 10/05/2024 COMP. METAB OLIC PANEL (14) calcium 10.1 mg/dL 8.7-10 .3 Not Available [facility] ([facility]) [address] [place] [place], [address], 10/05/2024 06:19:31 10/04/19 25 10/05/2024 COMP. METAB OLIC PANEL (14) protein, total 6.6 g/dL 6.0-8. 5 Not Available [facility] ([facility]) [address] [place] [place], [address], 10/05/2024 06:19:31 10/04/19 25 10/05/2024 COMP. METAB OLIC PANEL (14) albumin 4.0 g/dL 3.8-4. 8 Not Available [facility] ([facility]) [address] [place] [place], [address], 10/05/2024 06:19:31 10/04/1910/05/2024 COMP. METAB OLIC PANEL (14) globulin, total 2.6 g/dL 1.5-4. 5 Not Available [facility] ([facility]) [address] [place] [place], [address], 10/05/2024 06:19:31 10/04/19 25 10/05/2024 COMP. METAB OLIC PANEL (14) bilirubin, total 0.5 mg/dL 0.0-1. 2 Not Available [facility] ([facility]) [address] [place] [place], [address], 10/05/2024 06:19:31 10/04/19 25 10/05/2024 COMP. METAB OLIC PANEL (14) alkaline phosphatase 70 IU/L 44-121 Not Available [facility]) [address] [place] [place], [address], 10/05/2024 06:19:31 10/04/1910/05/2024 COMP. METAB OLIC PANEL (14) AST (SGOT) 17 IU/L 0-40 Not Available [facility] ([facility]) [address] [place] [place], [address], 10/05/2024 06:19:31 10/04/1910/05/2024 COMP. METAB OLIC PANEL (14) ALT (SGPT) 12 IU/L 0-32 Not Available [facility] ([facility]) [address] [place] [place], [address], 10/05/2024 06:19:31 10/04/19 25 10/05/2024 HEMOG LOBIN A1C hemoglobin A1C 6.6 % 4.8-5. 6 above high normal Predi abete s: 5.7 - 6.4 Diabe stephanie: >6.4 Glyce em contr ol for adult s with diabe stephanie: <7.0 Not Available [facility] ([facility]) [address] [facility], [place], [address], 10/05/2024 06:19:32 01/28/20 24 01/28/2024 DEXA No observ ation record ed. [facility] [address] [place], [address], 02/02/2024 14:21:25 Result Notes None recorded. Problems Name Problem SNOMED Code Status Onset Date Resolution Date Notes Provider Name and Address Organization Details Recorded Time Muscle weakness 92986414 Active 2023 Meliton Major [place] null, [place] - [facility] 4 11:40:24 Fatigue 67753027 Active 2023 Meliton Major [place] [facility] 4 11:40:25 Joint pain 13325591 Active 2023 Meliton Major [place] [facility] 4 11:40:26 Hyperlipidemia 35499351 Active 2023 Gautam Rey MD Attn: George ruano,[address] [place], [address], [place] [facility] 4 12:08:18 Type 2 diabetes mellitus 88081889 Active 2023 Gautam Rey MD Attn: George ruano,[address] [place], [address] [facility] 4 12:08:29 Polyneuropathy 54338098 Active 2024 Xochilt Walsh LPN [place], [place] [facility] 5 11:54:32 Menopausal syndrome 177044841 Active Mega Segovia [place] [facility] 5 13:19:46 Cystocele 547722029 Active Mega Seg[place] [facility] 5 13:19:46 Bladder muscle dysfunction - overactive Active Mega Segov[place] [facility] 5 13:19:46 Problem Notes None recorded. Procedures Surgical History Date Name Laterality Status Provider Name and Address Organization Details Recorded Time 3 Most Recent Mammogram completed Willow Ramsey [facility] 06/12/2015 12:48:29 3 Date of Last Pap Smear completed Willow Ramsey [facility] 06/12/2015 12:48:29 4 lumpectomy of breast completed Pao Flores [facility] 11/16/2023 10:40:33 repair of hole of macula lutea completed Paodanisha Flores [facility] 11/16/2023 10:40:11 Other completed Willow Ramsey [facility] 06/12/2015 12:51:27 Breast Biopsy completed Willow [facility] 06/12/2015 12:52:02 Imaging Results Imaging Date Name Status LastModified by Organizatio n Details LastModified Time 01/28/2024 DEXA completed [facility] [address] [place], [address], 02/02/2024 14:21:25 Procedure Notes None recorded. Medical Equipment None Reported. Allergies Allergen ID Allergen Name Allergen Category Reaction Reaction Severity Criticality Documentation Date Start Date Code Code System Note Provider Name and Address Organization Details Recorded Time 550371 Benadryl medicatio n other Not available Not available 11/16/2023 27935 7 RxNorm nervo usnes s, Restl ess legs Not Available Not Available Not Available 670539 Lexapro medicatio n Not available Not available Not available 11/16/2023 25852 1 RxNorm upset stoma ch, GERD Not Available Not Available Not Available 450506 trazodone medicatio n Not available Not available Not available 11/16/2023 93364 RxNorm Restl ess legs Not Available Not Available Not Available 817101 Belsomra medicatio n insomnia Not available Not available 11/16/2023 00346 05 RxNorm Not Available Not Available Not Available 135082 metformin medicatio n diarrhea other Not available Not available Not available 11/16/2023 6809 RxNorm flatu lence Not Available Not Available Not Available 993210 Farxiga medicatio n Not available Not available Not available 11/16/2023 10967 72 RxNorm flatu lence , diarr hea, UTI Not Available Not Available Not Available 979262 omeprazol e medicatio n Not available Not available Not available 06/21/2024 7646 RxNorm Worse toño her condi tion Not Available Not Available Not Available Medications Name Sig Start Date Stop Date Status Note LastModified by Organization Details LastModified Time atorvasta tin 40 mg tablet TAKE 1 TABLET BY MOUTH ONCE DAILY 2023 active Not Available Not Available Not Avai lable clotrimaz ole 10 mg matthew active Not Available Not Available Not Available metformin 500 mg tablet TAKE 1 TABLET BY MOUTH ONCE DAILY 11/15 completed flatulen ce and diarrhea Not Available Not Available Not Available doxycycli ne hyclate 100 mg capsule active Not Available Not Available Not Available atorvasta tin 10 mg tablet active Not Available Not Available Not Available hydrocodo ne 5 mg-acetam inophen 325 mg tablet TAKE 1 TABLET BY MOUTH EVERY 6 HOURS NEEDED FOR PAIN 06/21 completed Not Available Not Available Not Available prednison e 20 mg tablet active Not Available Not Available Not Available alendrona te 70 mg tablet active Not Available Not Available Not Available metronida zole 500 mg tablet active Not Available Not Available No t Available lorazepam 0.5 mg tablet active Not Available Not Available Not Available pantopraz ole 40 mg tablet,de layed release active Not Available Not Available Not Available mupirocin 2 % topical ointment APPLY OINTMENT TOPICALL Y IN EACH NOSTRIL TWICE DAILY FOR 5 DAYS 05/10 completed Not Available Not Available Not Available gabapenti n 100 mg capsule TAKE 1 CAPSULE BY MOUTH THREE TIMES DAILY active Not Available Not Available No t Available zolpidem 10 mg tablet active Not Available Not Available Not Available fluticaso ne propionat e 50 mcg/actua tion nasal spray,daniel pension active Not Available Not Available Not Available escitalop suresh 10 mg tablet active Not Available Not Available Not Available nitrofura ntoin monohydra te/macroc rystals 100 mg capsule TAKE 1 CAPSULE BY MOUTH TWICE DAILY FOR 5 DAYS 06/21 completed Not Available Not Available Not Available zolpidem ER 12.5 mg tablet,ex tended release,m ultiphase active Not Available Not Available No t Available Alice Aspirin 81 mg qd active Not Available Not Available Not Available quetiapin e 50 mg tablet active Not Available Not Available Not Available OneTouch Verio test strips USE 1 STRIP TO CHECK GLUCOSE IN THE MORNING active Not Available Not Available No t Available Probiotic (B. coagulans ) 10 billion cell capsule,d elayed release Take by oral route. active Not Available Not Available No t Available OneTouch Delica Plus Lancet 33 gauge USE DIRECTED TO CHECK BLOOD SUGAR ONCE DAILY active Not Available Not Available No t Available Vitals Date Recorded Body height Body mass index (BMI) Body weight Systolic blood pressure Diastolic blood pressure Provider Name and Address Organization Details Last Updated DateTime 06/12/2015 167.64 cm 24.5 kg/m2 08120.04 024 g 112 mm[Hg] 80 mm[Hg] Willow Ramsey [facility] 5 13:02:09 Date Recorded Body weight Body mass index (BMI) Body height Heart rate Oxygen saturation Oxygen saturation in Arterial blood by Pulse oximetry Systolic blood pressure Diastolic blood pressure Provider Name and Address Organization Details Last Updated DateTime 4 28538.6 7 g 24.8 kg/m2 170.18 cm 80 /min 96 % 96 % 138 mm[Hg] 76 mm[Hg] ELIANE Oconnor [facility] 4 10:30:43 Date Recorded Body height Body mass index (BMI) Body weight Heart rate Oxygen saturation Oxygen saturation in Arterial blood by Pulse oximetry Systolic blood pressure Diastolic blood pressure Provider Name and Address Organization Details Last Updated DateTime 4 170.18 cm 23.4 kg/m2 62697.7 g 79 /min 97 % 97 % 142 mm[Hg] 70 mm[Hg] Mary Rowe MA [facility] 4 10:58:37 Date Recorded Body height Body mass index (BMI) Body weight Heart rate Oxygen saturation Oxygen saturation in Arterial blood by Pulse oximetry Systolic blood pressure Diastolic blood pressure Provider Name and Address Organization Details Last Updated DateTime 4 170.18 cm 23.5 kg/m2 38015.9 3 g 83 /min 98 % 98 % 130 mm[Hg] 68 mm[Hg] Gayla Bateman MA [facility] 4 11:44:46 Date Recorded Body height Body mass index (BMI) Body weight Heart rate Oxygen saturation Oxygen saturation in Arterial blood by Pulse oximetry Systolic blood pressure Diastolic blood pressure Provider Name and Address Organization Details Last Updated DateTime 5 170.18 cm 24.1 kg/m2 00515.5 1 g 97 /min 97 % 97 % 128 mm[Hg] 70 mm[Hg] Gayla Bateman MA [facility] 5 11:03:58 Social History Question Answer Notes LastModified by Organizat ion Details LastModified Time Tobacco Smoking Status Never Smoker Willow RamseySAUL null, [place] - [facility] 06/12/2015 12:57:46 Do You Have An Advance Directive? Yes Information not available 06/12/2015 What Is Your Level Of Alcohol Consumption? None Information not available 06/12/2015 Are You Blind Or Do You Have Difficulty Seeing? No Information not available 06/21/2024 Is Blood Transfusion Acceptable In An Emergency? Yes Information not available 06/12/2015 What Is Your Level Of Caffeine Consumption? None Information not available 06/12/2015 How Much Tobacco Do You Chew? None Information not available 06/12/2015 In The 14 Days Before Symptom Onset, Have You Had Close Contact With A Laboratory-confir med COVID-19 While That Case Was Ill? No Information not available 06/21/2024 In The 14 Days Before Symptom Onset, Have You Had Close Contact With A Person Who Is Under Investigation For COVID-19 While That Person Was Ill? No Information not available 06/21/2024 Have You Been To An Area Known To Be High Risk For COVID-19? No Information not available 06/21/2024 Are You Currently Employed? No Information not available 06/12/2015 Are You Deaf Or Do You Have Serious Difficulty Hearing? No Information not available 06/21/2024 What Type Of Diet Are You Following? REGULAR Information not available 06/12/2015 Which Illicit Or Recreational Drugs Have You Used? None Information not available 06/12/2015 Education 12 Information no t available 06/12/2015 What Is Your Occupation? Retired Information not available 06/12/2015 Are There Any Guns Present In Your Home? No Information not available 06/21/2024 Live Alone Or With Others? With Others Information not available 06/12/2015 What Was The Date Of Your Most Recent Tobacco Screening? 09/27/2024 Non Smoker Information not available 09/27/2024 How Many Children Do You Have? 2 Information not available 06/12/2015 Performs Monthly Self-breast Exam? Yes Information no t available 06/12/2015 What Is Your Relationship Status? Information not available 06/12/2015 Do You Use Your Seat Belt Or Car Seat Routinely? Yes Information not available 06/21/2024 Seat Belts Used Routinely Yes Information not available 06/12/2015 Are You Sexually Active? No Information not available 06/12/2015 Do You Have Smoke And Carbon Monoxide Detectors In Your Home? Yes Information not available 06/21/2024 How Much Tobacco Do You Smoke? No Information not available 06/12/2015 General Stress Level High Information not available 06/12/2015 Do You Feel Stressed (tense, Restless, Nervous, Or Anxious, Or Unable To Sleep At Night)? [id number] Information not available 06/21/2024 Do You Use Any Illicit Or Recreational Drugs? No Information not available 06/21/2024 Do You Use Sunscreen Routinely? No Information not available 06/12/2015 Has Tobacco Cessation Counseling Been Provided? No Information not available 06/21/2024 Do You Or Have You Ever Used Any Other Forms Of Tobacco Or Nicotine? No Information not available 06/21/2024 Sex: Female Functional Status Question Answer Note LastModified by Organization D etails LastModified Time Are you able to care for yourself? Yes Information not available 06/21/2024 What is your exercise level? Moderate Information not available 06/12/2015 Mental Status None recorded. Family History Relationship Description Onset Age of this Age Resolved Age Notes LastModified by Organization Details LastModified Time Father Amyotrophic lateral sclerosis [email or web address] Not available 06/12 13:20:38 Mother Myocardial infarction mwasserman Not available 05/31 13:20:38 Sister Diabetes mellitus [email or web address] Not available 06/12 13:20:38 Brother Parkinson's disease mwasserman Not available 06/12 13:20:38 Maternal Aunt Malignant tumor of colon x2 [email or web address] Not available 06/12 13:20:38 Medical History Condition Response Heart Problems N Other Y Breast Cancer N Thyroid Problems N Kidney or Bladder Problems N GI Problems N Lung Disease N Depression N Acne N Breast Problem N Eating Disorder N Anemia N Anesthesia Complications N Headaches/Migraines N Anxiety Disorder N Diabetes Y Ovarian Cancer N Blood Transfusions N Arthritis N Polyps N Infertility N Acid Reflux (GERD) Y Cancer N Stroke N Abuse/Domestic Violence N Asthma N Endometriosis N High Cholesterol N Hepatitis N Heart Disease N Fibromyalgia N Pre-Eclampsia N Hypertension N Osteoporosis N Kidney Disease N Gynecological History Statement/Question Response Abnormal Pap N On BCP's at Conception? N STIs/STDs N HPV Vaccine N Most Recent Mammogram 12/02/2012 Age at Menarche 17 Current Control Method None Age at First Child 21 If Post Menopausal, Age at Menopause 55 Sexually Active? N Menses Monthly N Date of Last Pap Smear 11/09/2012 Sexual Problems? N Desired Control Method None Obstetrics History GPAL:G 2 P 2 0 0 2 Type Value Full Term 2 Living 2 Total 2 Immunizations Vaccine Type Date Status Note Provider Nam e and Address Organization Details Recorded Time zoster recombinant 9 completed SAUL [place], [place] - [facility] 06/21/2024 11:51:53 Influenza, high-dose, quadrivalent, PF 1 completed Meliton Major [place], [place] [facility] 06/21/2024 11:51:53 Influenza, high-dose, quadrivalent, PF 0 [place] [facility] 06/21/2024 11:51:53 COVID-19, mRNA, LNP-S, PF, 100 mcg/0.5mL dose or 50 mcg/0.25mL dose 1 [place] [facility] 06/21/2024 11:51:53 COVID-19, mRNA, LNP-S, PF, 100 mcg/0.5mL dose or 50 mcg/0.25mL dose 1 [place] [facility] 06/21/2024 11:51:53 COVID-19, mRNA, LNP-S, PF, 100 mcg/0.5mL dose or 50 mcg/0.25mL dose 1 [place] [facility] 06/21/2024 11:51:53 pneumococcal polysaccharide PPV23 0 [place] [facility] 06/21/2024 11:51:53 Pneumococcal conjugate PCV 13 9 [place] [facility] 06/21/2024 11:51:53 Influenza, high-dose, trivalent, PF 8 [place] [facility] 06/21/2024 11:51:53 Influenza, high-dose, trivalent, PF 5 completed Gautam Rey MD Attn: Accounting,[address] [place], [address], [place] [facility] 10/02/2024 18:37:40 Past Encounters Encounter ID Performer Location Encounter Start Date Encounter Closed Date Diagnosis/Indication Diagnosis SNOMED-CT Code Diagnosis ICD10 Code Diagnosis Note [id number] Meredith Ashraf (COMPENSATOR) [address] [place] [address] [phone] 0 06/12/2015 11:30:17 06/12/2015 13:22:13 Menopausal syndrome 652219733 N95.9 Screening for malignant neoplasm of breast 792326629 Z12.39 Cystocele 848036560 N81. 10 Bladder mu scle dysfunction - overactive 678811662 N32.81 [id number] MD Andriy Go (Adult Med) [address] [place] [address] [id number] 0 11/16/2023 10:10:26 11/16/2023 11:24:09 Type 2 diabetes mellitus 56340144 E11.9 Hyperlipidemia 09976272 E78.5 Long-term drug therapy 155112733 Z79.899 Dysuria 31867742 R30.0 [id number] MD Andriy Go (Adult Med) [address] [place] [address] [phone] 0 05/10/2024 10:27:13 05/10/2024 11:41:17 Muscle weakness 89591034 M62.81 Fatigue 85583178 R53.83 Joint pain 98855947 M25. 50 Hyperlipidemia 77229340 E78.5 [id number] MD Andriy Go (Adult Med) [address] [place] [address] [phone] 06/21/2024 11:02:08 06/21/2024 12:48:57 Muscle weakness 16032078 M62.81 Hyperlipidemia 41683485 E78.5 Type 2 tej betes mellitus 81642755 E11.9 [id number] MD Andriy Go (Adult Med) [address] [place] [address] [phone] 09/27/2024 10:04:52 09/27/2024 12:02:30 Body mass index 20-24 - normal 956141320 Z68.24 Administra tion of influenza vaccine 34312222 Z23 Hyperlipidemia 21288879 E78.5 Type 2 tej betes mellitus 80448899 E11.9 Health Concerns Section Related Observation LastModified by Organization Detai ls LastModified Time None Recorded Concern Status LastModified by Organization Details LastModified Time None Recorded Advance Directives Directive Y: Payers Encounter Date Sequence Insurance Name Policy Number Policy Metcalf Covered Member ID Metcalf Member ID Guarantor Name 06/12/2015 1 [place] Mariia Riley [id number] Mariia Riley 06/12/2015 1 HOA Riley [id number] Mariia Riley 11/16/2023 1 [facility] (MEDICARE REPLACEMENT/A DVANTAGE - HMO) [id number] Mariia Riley [id number] Mariia Riley 05/10/2024 1 [facility] (MEDICARE REPLACEMENT/A DVANTAGE - HMO) [id number] Mariia Riley [id number] Mariia Riley 06/21/2024 1 [facility] (MEDICARE REPLACEMENT/A DVANTAGE - HMO) [id number] Mariia Riley [id number] Mariia Riley 09/27/2024 1 [facility] (MEDICARE REPLACEMENT/A DVANTAGE - HMO) [id number] Mariia Dangelo Osvaldo [id number] Mariia Riley Notes Date Note Type Note Provider Name and Address Organization Details Recorded Time 06/12/2015 text/html CBE, prolapse bladder - having incontinence [facility] [place] [facility] 06/12/2015 13:21:34 11/16/2023 text/html Diabetes does no t take sugars regularly but no polyphagia or polydipsia hyperlipidemia needs to be checked she been having some dysuria for about a week with frequency and urgency no back pain no nausea vomiting fever or chills Gautam Rey MD Attn: Accounting, [address] [place], [address], [facility] 11/29/2023 16:34:47 05/10/2024 text/html at times she fee ls like her muscles are weak. A little bit of fatigue as well. She has had some nonspecific joint pain as well. Gautam Rey MD Attn: Accounting, [address] [place], [address], [facility] 05/29/2024 12:08:37 06/21/2024 text/html just says that s he feels weak we stopped the atorvastatin maybe she had a little bit of relief not sure. She does not have any problems holding arms above her head for long periods of time Gautam Rey MD Attn: Accounting, [address] [place], [address], [facility] 07/03/2024 12:09:41 09/27/2024 text/html still feels weak and has ill described episodes where she just has trouble walking she was seen neurology in the past Gautam Rey MD Attn: Accounting, [address] [place], [address], [facility] 10/02/2024 18:43:27 OBGyn Episode Ob Episode Information Episode Created Date Number of Fetuses Patient Bloodtype Patient rh Status Prepregnancy Weight lbs Domestic Partner Domestic Partner Phone Father Name Ping Pong Table Assembler Status 06/12/20 15 1 CLOSED Fetus Data First Name Last Name Admitted to NICU Weight (g) Sex Living Outcome Pediatric Complications Fetus ID Race Codes Race Delivery Type 3515.33 8 F Full Term [id number] Vaginal Joce Calculation Initial Joce Date Initial Exam Date Initial Exam Provider Initial Ultrasound Date Last Menstrual Period Date Ultra Sound Weeks Gestation 0 Eighteen To Twenty Week Joce Update Ultra Sound Date Fundal Height At Umbil Quickening Date Ultra Sound Latest Weeks Gestation Final Joce Confirmed By Final Joce Confirmed Date Final Joce Date Ultra Sound Latest Days Gestation 0 0 Menstrual History Last Menstrual Date Menses Monthly On Bcp Conception Prior Menses Frequency Hcg Plus Date Menarche Onset Age Delivery Information Delivery Date Delivery Type Labor Anesthesia Weeks Gestation Incision Type Labor Labor Length Hrs Delivered By Post Complications Tubal Sterilization Discharge Date Comments 0 Regional-Sp inal 40 Discharge Information Feeding Method Contraceptive Method Maternal HG B and HCT Levels Ob Episode Information Episode Created Date Number of Fetuses Patient Bloodtype Patient rh Status Prepregnancy Weight lbs Domestic Partner Domestic Partner Phone Father Name Ping Pong Table Assembler Status 06/12/20 15 1 CLOSED Fetus Data First Name Last Name Admitted to [facility] Weight (g) Sex Living Outcome Pediatric Complications Fetus ID Race Codes Race Delivery Type 3940.58 05 M Full Term [id number] Vaginal Joce Calculation Initial Joce Date Initial Exam Date Initial Exam Provider Initial Ultrasound Date Last Menstrual Period Date Ultra Sound Weeks Gestation 0 Eighteen To Twenty Week Joce Update Ultra Sound Date Fundal Height At Umbil Quickening Date Ultra Sound Latest Weeks Gestation Final Joce Confirmed By Final Joce Confirmed Date Final Joce Date Ultra Sound Latest Days Gestation 0 0 Menstrual History Last Menstrual Date Menses Monthly On Bcp Conception Prior Menses Frequency Hcg Plus Date Menarche Onset Age Delivery Information Delivery Date Delivery Type Labor Anesthesia Weeks Gestation Incision Type Labor Labor Length Hrs Delivered By Post Complications Tubal Sterilization Discharge Date Comments 7 Regional-Sp inal 40 Discharge Information Feeding Method Contraceptive Method Maternal HG B and HCT Levels
--- OUTSIDE RECORDS SUMMARY | 2024-11-10 10:11 | XMS_ITS | CONTINUITY OF CARE DOCUMENT ---
Author Name morena berg Address Unknown Organization [facility] Address [address] [facility] [address] [place] [address] Phone [phone] Care Team Providers Care Fitness And Wellness Instructor Name Role Phone Nelly Contreras MD Unavailable BAR ONEILL MD Unavailable BAR ONEILL MD Unavailable [phone] PROBLEMS Condition Status Date Provider Notes Hyperlipidemia active Nelly Contreras MD Elevated blood pressure active Nelly talavera MD TIA active Kamini Ventimiglia ELECTORATE OFFICER Chest pain active Kamini Ventimiglia ELECTORATE OFFICER Syncope active Isabelle Tovar Cardiology examination active Nelly celeste MD Sinus tachycardia active Nelly Contreras MD ENCOUNTERS Date Type Provider Location Encounter Diag nosis 0 - 1 In-person encounter Office Visit Nelly Contreras MD [facility] Cardiology examinationSyncope 6 - 6 In-person encounter Office Visit Nelly Contreras MD [facility] Elevated blood pressure 0 - 0 In-person encounter Office Visit Nelly Contreras MD [facility] TIAChest pain 3 - 3 In-person encounter Office Visit Nelly Contreras MD [facility] 8 - 8 In-person encounter Office Visit Nelly Contreras MD [facility] Sinus tachycardiaHyperlipidemiaElevated blood pressure VITAL SIGNS Date Observation Value Provider Body Mass Index (Ratio) 24.74 kg/m2 Nani Tovar blood pressure, diastolic 78 mm[Hg] Ri shabbir Schaffer blood pressure, systolic 139 mm[Hg] Bert audelia Schaffer blood pressure, cuff size regular Rogerio Schaffer oxygen saturation, oximetry 99 % Porsche Schaffer respiratory rate E&M 16 /min Nithya Schaffer pulse rate 103 /min Porsche smith weight E&M 158 [lb_av] Porsche Corona son height E&M 67 [in_i] Porsche Corona son Body Mass Index (Ratio) 27.25 kg/m2 Rohan Contreras MD pulse rate 117 /min Isabelle Block blood pressure, diastolic 60 mm[Hg] Br ittany Block blood pressure, systolic 120 mm[Hg] Mary ttaluis Block oxygen saturation, oximetry 97 % Isabelle Block weight E&M 174 [lb_av] Isabelle Block respiratory rate E&M 16 /min [facility] Block height E&M 67 [in_i] Isabelle Block Body Mass Index (Ratio) 27.41 kg/m2 Rohan Contreras MD blood pressure, resting Yes Jag a Jean-Paul blood pressure, diastolic 66 mm[Hg] Adebayo Jeong blood pressure, systolic 130 mm[Hg] Samara claire Jeong oxygen saturation, oximetry 95 % Brittany Jeong pulse rate 96 /min Brittany Rowe weight E&M 175 [lb_av] Brittany Rowe height E&M 67 [in_i] Brittany Rowe Body Mass Index (Ratio) 27.72 kg/m2 Joao Slater blood pressure, diastolic 70 mm[Hg] Da nora Rika blood pressure, systolic 126 mm[Hg] Dac ia Rika oxygen saturation, oximetry 93 % Ana Maria Rika respiratory rate E&M 16 /min Ana Maria V oss pulse rate 76 /min Ana Maria Rika weight E&M 177 [lb_av] Ana Maria Rika height E&M 67 [in_i] Ana Maria Rika Body Mass Index (Ratio) 27.56 kg/m2 Rohan Contreras MD blood pressure, diastolic 90 mm[Hg] Da nora Rika blood pressure, systolic 180 mm[Hg] Dac ia Rika oxygen saturation, oximetry 95 % Ana Maria Rika respiratory rate E&M 16 /min Ana Maria V oss pulse rate 116 /min Ana Maria Rika weight E&M 176 [lb_av] Ana Maria Rika height E&M 67 [in_i] Ana Maria Rika ALLERGIES Allergy Name Onset Date Reaction Criticality Status TRAZADONE High Criticality active BELSOMRA High Criticality active PROTONIX High Criticality active LEXAPRO High Criticality active OMEPRAZOLE High Criticality active BENADRYL High Criticality active RESULTS Date Observation Value Provider Reference Range Interpretation Location 3 LDL cholesterol, serum 126 mg/dL Bg Adenberg HISTORY OF MEDICATION USE Medication Status Instructions Dates Provider Indications Com ments BYSTOLIC 5 MG ORAL TABLET completed ONE TAB. DAILY 3 - 0 Brittany Jeong METOPROLOL TARTRATE 25 MG ORAL TABLET completed one half tab. twice daily 8 - 3 Nelly Contreras MD UNISOM SLEEPTABS 25 MG ORAL TABLET active one tab daily at night 8 Nelly Contreras MD GARLIQUE TABLET DELAYED RELEASE completed take one daily 8 - 0 Brittany Jeong SUE MAGNESIUM OXIDE TABLET completed take one daily 8 - 0 Brittany Jeong SUE MELATONIN 5 MG ORAL TABLET completed take one at bedtime 8 - 0 Brittany Jeong HM SLEEP AID 25 MG ORAL TABLET active take one at bedtime 8 Ana Maria Meléndez MULTIPLE VITAMIN ORAL TABLET completed take one tablet daily 8 - 0 Brittany Jeong ASPIRIN LOW STRENGTH 81 MG ORAL TABLET CHEWABLE active take one tablet daily 8 Ana Maria Rika ATORVASTATIN CALCIUM 40 MG ORAL TABLET active take one daily 8 Ana Maria Rika SOCIAL HISTORY Date Observation Value Provider social history E&M S moking History: Renetta altman has never smoked. Nelly Contreras MD social history reviewed E&M revi ewed - no changes required Nelly Contreras MD smoking status Never smoker Porsche Brian jain social history E&M S moking History: Renetta altman has never smoked. Nelly Contreras MD social history reviewed E&M revi ewed - no changes required Nelly Contreras MD smoking status Never smoker Isabelle araujo social history E&M S moking History: Renetta altman has never smoked. Kamini VALENCIA smoking status Never smoker Brittany Hameed social history reviewed E&M revi ewed - no changes required Brittany Jeong social history E&M Smoking Histo ry: Renetta altman has never smoked. Bg Slater social history reviewed E&M revi ewed - no changes required Nelly Contreras MD alcohol use no Ana Maria Rika smoking status Never smoker Ana Maria Rika number of grandchildren Nelly Contreras MD social history E&M S moking History: Renetta altman has never smoked. Nelly Contreras MD social history reviewed E&M revi ewed - no changes required Nelly Contreras MD alcohol use no Ana Maria Rika smoking status Never smoker Ana Maria Meléndez INSURANCE PROVIDERS Payer name Policy type / Coverage type [place] [employer] MEDICARE COMPLETE HMO Other [id number] ADVANCE DIRECTIVES Name Date DISCUSSED - NO DECISION MADE TREATMENT PLAN Date Name Performer [id number],C, H ad several episodes of syncope. All workup was negative, including echo, stress test, and carotid duplex. No recurrence since. Patient does not want telemonitor at this time. Isabelle Guy [id number],C, P ersistent sinus tachycardia which is unchanged. She is unable to tolerate Metoprolol due to hypotension and near syncope. Does not want to try BB again. SHe states her heart rate has always run high and this is where she is most comfortable. She has no symptoms. Does not want a monitor Isabelle Guy [id number],C, N o chest pain. Echo and stress test were normal. Isabelle Guy [id number],C, P ersistent sinus tachycardia which is unchanged. She is unable to tolerate Metoprolol due to hypotension and near syncope. SHe states her heart rate has always run high and this is where she is most comfortable. She has no symptoms. Nelly Contreras MD [id number],C, N o residual deficits. Continues on Aspirin. Nelly Contreras MD [id number],C, B lood pressure control is satisfactory. Nelly Contreras MD [id number],C, C ontinues on Atorvastatin. Nelly Contreras MD Cardiology: H ad several episodes of syncope. All workup was negative, including echo, stress test, and carotid duplex. No recurrence since. Patient does not want telemonitor at this time. Isabelle Guy Cardiology: P ersistent sinus tachycardia which is unchanged. She is unable to tolerate Metoprolol due to hypotension and near syncope. Does not want to try BB again. SHe states her heart rate has always run high and this is where she is most comfortable. She has no symptoms. Does not want a monitor Isabelle Felicianoisrrael Cardiology: N o chest pain. Echo and stress test were normal. Isabelle Guy Cardiology: P ersistent sinus tachycardia which is unchanged. She is unable to tolerate Metoprolol due to hypotension and near syncope. SHe states her heart rate has always run high and this is where she is most comfortable. She has no symptoms. Nelly Contreras MD Cardiology: N o residual deficits. Continues on Aspirin. Nelly Contreras MD Cardiology: B lood pressure control is satisfactory. Nelly Contreras MD Cardiology: C ontinues on Atorvastatin. Nelly Contreras MD Cardiology:No recurr ence. Her echo and stress were normal. The patient has been reassured. Nelly Contreras MD Cardiology:Continues on Atorvastatin. Nelly Contreras MD Cardiology:No residu al deficits. Continues on Aspirin. Nelly Contreras MD Cardiology:Blood pressure contro l is satisfactory. Nelly Contreras MD Cardiology:Persisten t sinus tachycardia which is unchanged. She is unable to tolerate Metoprolol due to hypotension and near syncope. Her average heart rate on her fitness watch is 92 beats per minute. She has no symptoms. Nelly Contreras MD Cardiology:Blood pre ssure controlled. Advised to continue to monitor. Kamini Nava [facility] Cardiology:No residu al deficits. Continues on Aspirin. Kamini Nava [facility] Cardiology:Continues on Atorvast atin. Kamini Nava [facility] Cardiology:Chest renee n described as pressure with increased tiredness and fatigue in a patient with risk factors for CAD. Will arrange echo and stress test. Kamini Nava [facility] Cardiology:Patient h as not been taking Metoprolol as prescribed and remains tired and fatigued. WIll discontinue Metoprolol. Advised to continue monitoring her heart rate and blood pressure and resume Metoprolol Tartrate 12.5mg BID if consistently elevated. Kamini Nava [facility] Cardiology follow up:BP is well controlled today. Nelly Contreras MD Cardiology follow up:On Lipitor. Nelly Contreras MD Cardiology follow up :Improved on Metoprolol but Metoprolol has made her tired and fatigued. I have given her samples of Bystolic to take. If symptoms of fatigue improve, will give her a prescription. Nelly Contreras MD Cardiology New Patie nt:Continues on Atorvastatin. Most recent lipid panel showed elevated triglycerides of 233, and LDL 126. Nelly Contreras MD Cardiology New Patie nt:Will start Metoprolol 12.5 mg BID. Nelly Contreras MD Cardiology New Patie nt:Unclear etiology. Her recent thyroid panel was normal. As patient is symptomatic with palpitations and shortness of breath, will start Metoprolol Tartrate 12.5mg BID. Her last echocardiogram was normal. Nelly Contreras MD Date Name Stress Regadenoson Complete Echo Stress Exercise Card iolite Holter Monitor 48 hr HISTORY OF PROCEDURES Procedure Date Procedure Name Provider Procedure Notes S tatus EKG Nelly Contreras MD complet ed EKG Nelly Contreras MD complet ed Cardiolite, 2 units Nelly Contreras MD completed SPECT Images Nelly Contreras MD compl eted Stress EKG Nelly Contreras MD complet ed EKG Nelly Contreras MD complet ed EKG Nelly Contreras MD complet ed EKG Nelly Contreras MD complet ed Holter, 24 or 48 Durga Martinez MD co mpleted
--- OUTSIDE RECORDS SUMMARY | 2024-11-10 10:12 | XMS_ITS | Clinical Summary ---
Author Organization [facility] Address [address] [place] [address] Care Team Providers Care Compound Mixer Name Role Phone Gautam Rey MD Primary Care Provider [phone] Allergies Active Allergy Reactions Criticality Noted Date [...] Date Diagnosed Date TIA (transient ischemic attack) Surgical History Surgery Date Site/Laterality Comments BREAST LUMPECTOMY 08/31/1983 - 08/30/1984 Right PARS PLANA VITRECTOMY W/ REP AIR OF MACULAR HOLE Left Medical History Medical History Date Comments TIA (transient ischemic attack) Vertigo 05/30/2022 Social History Tobacco Use Types Packs/Day Years Used Date Smoking Tobacco: Never Tobacco Cessation:Counseling Given: Not Answered Personal Safety Answer Date Recorded Getting School Help Needed Not on file 11/12 Comments Unknown Sex and Gender Information Value Date Recorded Sex Assigned at Not on file Legal Sex Female 3:33 AM PACK CHANGER Gender Identity Not on file Sexual Orientation Not on file Obstetrics History Last Filed Vital Signs Vital Sign Reading Time Taken Comments Blood Pressure 146/82 08/08/2022 10:42 AM PACK CHANGER Pulse 99 08/08/2022 10:42 AM PACK CHANGER Temperature 36.7 C (98.1 F) 11/02/2012 11:37 AM PACK CHANGER Respiratory Rate - - Oxygen Saturation 97% 08/08/2022 10:42 AM PACK CHANGER Inhaled Oxygen Concentration - - Weight 71.5 kg (157 lb 9.6 oz) 08/08/2022 10:42 AM PACK CHANGER Height 167.6 cm (5' 5.98 ) 08/08/2022 10:[address] Body Mass Index 25.45 08/08/2022 10:42 AM PACK CHANGER Plan of Treatment Health Maintenance Due Date Last Done Comments Depression Screening 1945 Fall Risk Assessment 1945 Hepatitis C Screening 1945 Osteoporosis Screening-Bone Density Scan 1945 DTaP/Tdap/Td Vaccine (1 - Tdap) 1958 Hepatitis B Screening 1965 Well Visit 65+ 2012 Zoster Vaccine (2 of 2) 12/30/2018 11/04/2018 Covid-19 Vaccine ( season) 2024 06/21/2021, 11/20/2020, 10/23/2020 Influenza Vaccine (#1) 2024 , 07/01/2020, 06/29/2018 Pneumococcal vaccine 65+ Completed 03/26/2020, 0302/2019 Insurance [facility] [place] [address] Care Teams Compound Mixer Relationship Specialty Start Date End Date Gautam Rey MD PCP - General Internal Medicine 06/09/22
[2024-11-10 10:20] LABS: CRP < 0.5 mg/dL (<1.0)
[2024-11-10 10:35] LABS: Erythrocyte Sedimentation Rate 22 mm/hr (0-20)
== END 2024-11-10 09:05 | disposition home or self-care (01) ==
PROVIDERS: PCP Internal Medicine
DX: M48.061 Spinal stenosis, lumbar region without neurogenic claudication (principal)
CPT/HCPCS: 36415; 84145; 85025; 85652; 86140

== ENCOUNTER 2025-01-07 06:53 | Outpatient (CLI) | payer MEDICARE, SELFPAY ==
--- OUTSIDE RECORDS SUMMARY | 2025-01-07 07:07 | XMS_ITS | CONTINUITY OF CARE DOCUMENT ---
Author Name morena berg Address Unknown Organization [facility] Address [address] [place] [address] Phone [phone] Care Team Providers Care Smoke Chaser Name Role Phone Nelly Contreras MD Unavailable BAR ONEILL MD Unavailable BAR ONEILL MD Unavailable [phone] PROBLEMS Condition Status Date Provider Notes Sinus tachycardia active Nelly Contreras MD Hyperlipidemia active Nelly Contreras MD Elevated blood pressure active Nelly talavera MD TIA active Kamini Ventimiglia CAR SEAT UPHOLSTERER Chest pain active Kamini Ventimiglia CAR SEAT UPHOLSTERER Cardiology examination active Nelly celeste MD Syncope active Isabelle Tovar ENCOUNTERS Date Type Provider Location Encounter Diag nosis 0 - 1 In-person encounter Office Visit Nelly Contreras MD [facility] Cardiology examinationSyncope 6 - 6 In-person encounter Office Visit Nelly Contreras MD [facility] Elevated blood pressure 0 - 0 In-person encounter Office Visit Nelly Contreras MD [facility] TIAChest pain 3 - 3 In-person encounter Office Visit Nelly Contreras MD [facility] 8 - 8 In-person encounter Office Visit Nelly Contreras MD [facility] Sinus tachycardiaHyperlipidemiaElevated blood pressure VITAL SIGNS Date Observation Value Provider Body Mass Index (Ratio) 24.74 kg/m2 Nani Tovar blood pressure, diastolic 78 mm[Hg] Ri shabbir Schaffer blood pressure, systolic 139 mm[Hg] Bert audelia Schaffer blood pressure, cuff size regular Ri shabbir Schaffer oxygen saturation, oximetry 99 % Porsche Schaffer respiratory rate E&M 16 /min Nithya Schaffer pulse rate 103 /min Porsche smith weight E&M 158 [lb_av] Porsche Corona son height E&M 67 [in_i] Porsche smith Body Mass Index (Ratio) 27.25 kg/m2 Rohan Contreras MD pulse rate 117 /min Isabelle Block blood pressure, diastolic 60 mm[Hg] Br ittany Block blood pressure, systolic 120 mm[Hg] Mary ttaluis Block oxygen saturation, oximetry 97 % Isabelle Block weight E&M 174 [lb_av] Isabelle Block respiratory rate E&M 16 /min [facility] Block height E&M 67 [in_i] Isabelle Block Body Mass Index (Ratio) 27.41 kg/m2 Rohan Contreras MD blood pressure, resting Yes Jag Jeong blood pressure, diastolic 66 mm[Hg] Adebayo Jeong [...] oss pulse rate 76 /min Ana Maria Rkia weight E&M 177 [lb_av] Ana Maria Rika [...] 3 LDL cholesterol, serum 126 mg/dL Bg Slater HISTORY OF MEDICATION USE Medication Status Instructions [...] take one at bedtime 8 Ana Maria Rika MULTIPLE VITAMIN ORAL TABLET completed take one [...] MD smoking status Never smoker Porsche Brian ajin social history E&M S moking History: Renetta altman has never smoked. Nelly Contreras MD social history reviewed E&M revi ewed - no changes required Nelly Contreras MD smoking status Never smoker Isabelle Miguel araujo social history E&M S moking History: [...] Payer name Policy type / Coverage type [place] [employer] ID [employer] MEDICARE COMPLETE HMO Other [id number] ADVANCE DIRECTIVES Name Date DISCUSSED - NO DECISION MADE TREATMENT PLAN Date Name Performer [id number],C, H ad several episodes of syncope. All workup was negative, including echo, stress test, and carotid duplex. No recurrence since. Patient does not want telemonitor at this time. Isabelle Guy [id number],C, P ersistent sinus tachycardia which is unchanged. She is unable to tolerate Metoprolol due to hypotension and near syncope. Does not want to try BB again. SHe states her heart rate has always run high and this is where she is most comfortable. She has no symptoms. Does not want a monitor Isabelle Guy [id number],C, N o chest pain. Echo and stress test were normal. Isabelle Guy [id number],C, P ersistent sinus tachycardia which is unchanged. She is unable to tolerate Metoprolol due to hypotension and near syncope. SHe states her heart rate has always run high and this is where she is most comfortable. She has no symptoms. Nelly Contreras MD [id number],C, N o residual deficits. Continues on Aspirin. Nelly Contreras MD [id number],C, B lood pressure control is satisfactory. Nelly Contreras MD [id number],C, C ontinues on Atorvastatin. Nelly Contreras MD [...] Does not want a monitor Isabelle Guy Cardiology: N o chest pain. Echo and [...] Advised to continue to monitor. Kamini Nava [facility] Cardiology:No residu al deficits. Continues on Aspirin. Kamini Nava [facility] Cardiology:Continues on Atorvast atin. Kamini Nava [facility] Cardiology:Chest renee n described as pressure with increased tiredness and fatigue in a patient with risk factors for CAD. Will arrange echo and stress test. Kamini Nava [facility] Cardiology:Patient h as not been taking Metoprolol as prescribed and remains tired and fatigued. WIll discontinue Metoprolol. Advised to continue monitoring her heart rate and blood pressure and resume Metoprolol Tartrate 12.5mg BID if consistently elevated. Kamini Nava [facility] Cardiology follow up:BP is well controlled today. [...] ed EKG Nelly Contreras MD complet ed Heidi, 24 or 48 Durga Martinez MD co mpleted
--- OUTSIDE RECORDS SUMMARY | 2025-01-07 07:08 | XMS_ITS | Clinical Summary ---
Author Organization [facility] Address [address] [place] [address] Care Team Providers Care High Value Associate Name Role Phone Gautam Rey MD Primary Care Provider Allergies Active Allergy Reactions Criticality Noted Date [...] on file Legal Sex Female 3:33 AM WIRELESS CELLULAR TECHNICIAN Gender Identity Not on file Sexual Orientation Not on file Obstetrics History Last Filed Vital Signs Vital Sign Reading Time Taken Comments Blood Pressure 146/82 08/08/2022 10:42 AM WIRELESS CELLULAR TECHNICIAN Pulse 99 08/08/2022 10:42 AM WIRELESS CELLULAR TECHNICIAN Temperature 36.7 C (98.1 F) 11/02/2012 11:37 AM WIRELESS CELLULAR TECHNICIAN Respiratory Rate - - Oxygen Saturation 97% 08/08/2022 10:42 AM WIRELESS CELLULAR TECHNICIAN Inhaled Oxygen Concentration - - Weight 71.5 kg (157 lb 9.6 oz) 08/08/2022 10:42 AM WIRELESS CELLULAR TECHNICIAN Height 167.6 cm (5' 5.98 ) 08/08/2022 10:[address] Body Mass Index 25.45 08/08/2022 10:42 AM WIRELESS CELLULAR TECHNICIAN Plan of Treatment Health Maintenance Due Date [...] vaccine 65+ Completed 03/26/2020, 0302/2019 Insurance [facility] [employer] HMO REF Care Teams High Value Associate Relationship Specialty Start Date End Date Gautam Rey MD PCP - General Internal Medicine 06/09/22
--- OUTSIDE RECORDS SUMMARY | 2025-01-07 07:08 | XMS_ITS | Clinical Summary ---
Author Organization [facility] Address [address] [place] [address] Phone Care Team Providers Care Judo Instructor Name Role Phone Gautam Rey MD Primary Care Provider [phone] Nikolas Hector MD Unavailable [phone] Allergies Active Allergy Reactions Criticality Noted Date [...] Response Take 81 mg by mouth daily. 01/06/20 25 Discontinu ed(Med List Clean Up) Calcium Carbonate (CALCIUM 500 PO) Take by mouth. 01/06/20 25 Discontinu ed(Med List Clean Up) Encounters Date Type Department Care Team Description 01/05/2025 11:30 AM CDT Office Visit [facility] Neu[facility] [address] [place] [address] Nikolas Hector MD Bilateral foot-drop (Primary Dx); Polyneuropathy; Abnormal findings on diagnostic imaging of other specified body structures; Abnormal finding of blood chemistry, unspecified; Prediabetes Discharge Disposition: Discharged to home or Selfcare 01/05/2025 Travel 11/02/2024 Results Follow-Up [facility] [address] [place] [address] Nikolas Hector MD MRI L-SPINE W/O CONTRAST 11/01/2024 9:18 AM LATHE MECHANIC - 11/01/2024 11:59 PM LATHE MECHANIC [facility] [address] [place] [address] Nikolas Hector MD Discharge Disposition: Discharged to home or Selfcare 11/01/2024 Travel from Last 3 Months Family History [...] on file Legal Sex Female 2:44 PM LATHE MECHANIC Gender Identity Not on file Sexual Orientation Not on file Last Filed Vital Signs Vital Sign Reading Time Taken Comments Blood Pressure 140/80 01/05/2025 11:25 AM CDT Pulse 104 01/05/2025 11:25 AM CDT Temperature 36.3 C (97.3 F) 01/05/2025 11:25 AM CDT Respiratory Rate 17 01/05/2025 11:25 AM CDT Oxygen Saturation 97% 01/05/2025 11:25 AM CDT Inhaled Oxygen Concentration - - Weight 70.8 kg (156 lb 1.6 oz) 01/05/2025 11:25 AM CDT Height 170.2 cm (5' 7 ) 01/05/2025 11:25 AM CDT Body Mass Index 24.45 01/05/2025 11:25 AM CDT Plan of Treatment Upcoming Encounters Date Type Department Care Team (Late st Contact Info) Description 04/18/2025 11:30 AM CDT Office Visit [facility] - Neurology [facility] [address] [place] [address] Nikolas Hector MD [address] [place] [address] Health Maintenance Due Date Last Done Comments DEXA Bone Density 1945 Hepatitis C Virus (HCV) Screening 1945 TdaP Immunization 1945 Zoster Immunization (2 of 2) 12/30/2018 11/04/2018 Respiratory Syncytial Virus (RSV) Immunization (Adult) (1 - 1-dose 75+ series) 2022 SARS-COV-2 Immunization ( - season) 2024 06/21/2021, 11/20/2020, 10/23/2020 Pneumococcal Immunization (50+ years) Completed 03/26/2020, 11/04/2018 Influenza Immunization Completed , 06/21/2021, 07/01/2020, Additional history exists Hepatitis B Immunization Aged Out No longer eligible based on patient's age to complete this topic Human Papillomavirus (HPV) Immunization Aged Out No longer eligible based on patient's age to complete this topic Meningococcal Immunization (ACWY) Aged Out No longer eligible based on patient's age to complete this topic Rotavirus Immunization Aged Out No lo nger eligible based on patient's age to complete this topic Procedures Procedure Name Priority Date/Time Associated Diagnosis Comments MRI L-SPINE W/O CONTRAST Routine 11/01/2024 10:08 AM LATHE MECHANIC Bilateral foot-drop from Last 3 Months Results * MRI L-SPINE W/O CONTRAST (11/01/2024 10:08 AM LATHE MECHANIC) Anatomical Region Laterality Modality Spine, L-spine N/A Magnetic Resonan ce 11/01/2024 11:1 1 AM LATHE MECHANIC Impressions 11/01/2024 11:13 AM LATHE MECHANIC IMPRESSION: Multilevel lumbar degenerative disc and joint [...] as clinically warranted. Narrative 11/01/2024 11:13 AM LATHE MECHANIC EXAM DESCRIPTION: MRI L-SPINE W/O CONTRAST REASON [...] Minimal spinal canal stenosis. L2-3: Disc bulge. Zpkx-qr-qakxuscb facet arthropathy. Ligamentum flavum thickening. Minimal narrowing of the lateral recesses. Otherwise, no spinal canal stenosis. Mild bilateral neural foraminal stenosis. L3-4: Disc bulge. Moderate bilateral facet arthropathy. Mild right and mild left neural foraminal stenosis. Very mild spinal canal stenosis L4-5: Disc bulge. Severe right and moderate to severe left facet arthropathy. Mild bilateral neural foraminal stenosis, pbxm-gnkojus-ijgk-right. Mild spinal canal stenosis L5-S1: Mild disc bulge. Moderate left and mild right facet arthropathy. No neural foraminal or spinal canal stenosis. SACRUM: Visualized upper sacrum intact. VISUALIZED UPPER ABDOMEN: No significant abnormality. OTHER: No other significant findings. THIS IS AN ELECTRONICALLY VERIFIED FINAL REPORT 11/01/2024 11:11 AM - Electronically signed by Ej Louie M.D. MZ: KENNEY Report ID: [id number] Reading Location: [id number] Procedure Note Ej Louie MD - 11/01/2024 [...] Minimal spinal canal stenosis. L2-3: Disc bulge. Hvof-ce-iagdrxyt facet arthropathy. Ligamentum flavum thickening. Minimal narrowing of the lateral recesses. Otherwise, no spinal canal stenosis. Mild bilateral neural foraminal stenosis. L3-4: Disc bulge. Moderate bilateral facet arthropathy. Mild right and mild left neural foraminal stenosis. Very mild spinal canal stenosis L4-5: Disc bulge. Severe right and moderate to severe left facet arthropathy. Mild bilateral neural foraminal stenosis, rzvo-mokjvab-zugv-right. Mild spinal canal stenosis L5-S1: Mild disc bulge. Moderate left and mild right facet arthropathy. No neural foraminal or spinal canal stenosis. SACRUM: Visualized upper sacrum intact. VISUALIZED UPPER ABDOMEN: No significant abnormality. OTHER: No other significant findings. THIS IS AN ELECTRONICALLY VERIFIED FINAL REPORT 11/01/2024 11:11 AM - Electronically signed by Ej Louie M.D. MZ: KENNEY Report ID: [id number] Reading Location: [id number] IMPRESSION: Multilevel lumbar degenerative disc and joint [...] contrast can be obtained as clinically warranted. us Nikolas Hector MD IMG MR ORDERABLES Final Resu lt from Last 3 Months [facility] Care Teams Judo Instructor Relationship Specialty Start Date End Date Gautam Rey MD [address] [place] [address] PCP - General Internal Medicine 07/08/24 Nikolas Hector MD [address] [place] [address] Consulting Physician Neurology 07/25/24
--- OUTSIDE RECORDS SUMMARY | 2025-01-07 07:08 | XMS_ITS | Data Portability ---
Author Organization [facility], Main Office Address [address] [place] [address] Care Team Providers Care Mutual Fund Analyst Name Role Phone BAR REY Primary Care Provider BAR REY Referring Provider Assessment Encounter Date Assessment Date Assessment LastModified by Organization Details LastModified Time 05/18/2023 05/18/2023 Blood work urine diet exercise questions all answered follow-up 4 months Not available 06/14/2023 14:30:00 12/22/2023 12/22/2023 78-year-old [...] None recorded. Lab urinalysis, microscopic 2022 023 [facility] (Lab), [address] [place], [address], 4 18:30:19 HbA1c (hemoglobin A1c), blood 2022 023 [email or web address] [facility] (Lab), [address] [place], [address], 4 18:30:19 CBC w/ auto diff 2022 023 [facility] (Lab), [address] [place], [address], 3 16:52:12 T3, free, serum or plasma 2022 023 [email or web address] [facility] (Lab), [address] [place], [address], 3 16:52:12 T4, free, serum 2022 023 [email or web address] [facility] (Lab), [address] [place], [address], 3 16:52:12 TSH, serum or plasma [address] (Lab), [address] [place], [address], 3 16:52:12 lipid panel, serum [address] (Lab), [address] [place], [address], 3 16:52:12 CMP, serum or plasma [address] (Lab), [address] [place], [address], 3 16:52:12 Referral None recorded. Procedures None recorded. Surgeries None recorded. Imaging XR, wrist, 3 or more view 2023 024 [facility] [place], [address], [place], [address], 4 14:08:14 XR, wrist, 3 or more view 2023 024 [facility] [place], [address], [place], [address], 4 00:17:19 Medication Orders None recorded. Patient TargetsNo targets recorded. Patient InstructionsNo instructions recorded. Reason for Referral None Reported. Results Created Date Observation Date Name Description Value Unit Range Abnormal Flag Note LastModifiedBy Organization Detail LastModifiedTime 05/18/20 23 05/18/2023 URINE MICRO SCOPI C EXAM/ IRIS white blood cells PACKED /i??h pfi?? 0-8 abnormal Not Available [facility] (Lab) [address] [place], [address], 05/18/2023 14:42:21 05/18/20 23 05/18/2023 URINE MICRO SCOPI C EXAM/ IRIS white blood cell clumps MANY /i??h pfi?? none seen- abnormal Not Available [facility] (Lab) [address] [place], [address], 05/18/2023 14:42:21 05/18/20 23 05/18/2023 URINE MICRO SCOPI C EXAM/ IRIS red blood cells 0-4 /i??h pfi?? 0-4 Not Available [facility] (Lab) [address] [place], [address], 05/18/2023 14:42:21 05/18/20 23 05/18/2023 URINE MICRO SCOPI C EXAM/ IRIS bacteria FEW abnormal Not Available [facility] (Lab) [address] [place], [address], 05/18/2023 14:42:21 05/18/20 23 05/18/2023 URINE MICRO SCOPI C EXAM/ IRIS mucous OCCASI ONAL /i??l pfi?? abnormal Not Available [facility] (Lab) [address] [place], [address], 05/18/2023 14:42:21 05/18/20 23 05/18/2023 URINE MICRO SCOPI C EXAM/ IRIS squamous epithelial FEW /i??l pfi?? abnormal Not Available [facility] (Lab) [address] [place], [address], 05/18/2023 14:42:21 05/18/20 23 05/18/2023 URINE MICRO SCOPI C EXAM/ IRIS amorphous crystal MODERA TE /i??h pfi?? abnormal Not Available [facility] (Lab) [address] [place], [address], 05/18/2023 14:42:21 05/18/20 23 05/18/2023 CBC/C OMPLE TE BLD COUNT W/DIF F white blood cells 6.1 x10'3 /uL 4.2-10 .8 Not Available [facility] (Lab) [address] [place], [address], 05/18/2023 15:28:27 05/18/20 23 05/18/2023 CBC/C OMPLE TE BLD COUNT W/DIF F red blood cells 4.72 x10'6 /uL 3.80-5 .20 Not Available [facility] (Lab) [address] [place], [address], 05/18/2023 15:28:27 05/18/20 23 05/18/2023 CBC/C OMPLE TE BLD COUNT W/DIF F hemoglobin 13.5 g/dL 12.0-1 5.6 Not Available [facility] (Lab) [address] [place], [address], 05/18/2023 15:28:27 05/18/20 23 05/18/2023 CBC/C OMPLE TE BLD COUNT W/DIF F hematocrit 41.7 % 35.7-4 5.7 Not Available [facility] (Lab) [address] [place], [address], 05/18/2023 15:28:27 05/18/20 23 05/18/2023 CBC/C OMPLE TE BLD COUNT W/DIF F mean red cell volume 88.3 fL 82.0-9 9.0 Not Available [facility] (Lab) [address] [place], [address], 05/18/2023 15:28:27 05/18/20 23 05/18/2023 CBC/C OMPLE TE BLD COUNT W/DIF F mean red cell hemoglobin 28.6 pg 27.0-3 3.0 Not Available [facility] (Lab) [address] [facility] [place], [address], 05/18/2023 15:28:27 05/18/20 23 05/18/2023 CBC/C OMPLE TE BLD COUNT W/DIF F mean RBC HGB concentratio n 32.4 g/dL 31.0-3 6.0 Not Available [facility] (Lab) [address] [place], [address], 05/18/2023 15:28:27 05/18/20 23 05/18/2023 CBC/C OMPLE TE BLD COUNT W/DIF F red cell distribution width 12.7 % 11.8-1 5.5 Not Available [facility] (Lab) [address] [place], [address], 05/18/2023 15:28:27 05/18/20 23 05/18/2023 CBC/C OMPLE TE BLD COUNT W/DIF F platelets 171 x10'3 /uL 150-40 0 Not Available [facility] (Lab) [address] [place], [address], 05/18/2023 15:28:27 05/18/20 23 05/18/2023 CBC/C OMPLE TE BLD COUNT W/DIF F mean platelet volume 11.3 fL 9.0-12 .4 Not Available [facility] (Lab) [address] [place], [address], 05/18/2023 15:28:27 05/18/20 23 05/18/2023 CBC/C OMPLE TE BLD COUNT W/DIF F neutrophils 66.6 % 39.0-7 2.0 Not Available [facility] (Lab) [address] [place], [address], 05/18/2023 15:28:27 05/18/20 23 05/18/2023 CBC/C OMPLE TE BLD COUNT W/DIF F lymphocytes 23.9 % 16.0-4 7.0 Not Available [facility] (Lab) [address] [place], [address], 05/18/2023 15:28:27 05/18/2005/18/2023 CBC/C OMPLE TE BLD COUNT W/DIF F monocytes 6.9 % 5.0-12 .0 Not Available [facility] (Lab) [address] [place], [address], 05/18/2023 15:28:27 05/18/20 23 05/18/2023 CBC/C OMPLE TE BLD COUNT W/DIF F eosinophils 1.5 % 1.0-7. 0 Not Available [facility] (Lab) [address] [place], [address], 05/18/2023 15:28:27 05/18/20 23 05/18/2023 CBC/C OMPLE TE BLD COUNT W/DIF F basophils 0.8 % 0.0-2. 0 Not Available [facility] (Lab) [address] [facility] [place], [address], 05/18/2023 15:28:27 05/18/20 23 05/18/2023 CBC/C OMPLE TE BLD COUNT W/DIF F immature granulocytes 0.3 % 0.00-0 .50 Not Available [facility] (Lab) [address] [place], [address], 05/18/2023 15:28:27 05/18/20 23 05/18/2023 CBC/C OMPLE TE BLD COUNT W/DIF F neutrophils, absolute count 4.07 x10'3 /uL 1.5-8. 0 Not Available [facility] (Lab) [address] [place], [address], 05/18/2023 15:28:27 05/18/20 23 05/18/2023 CBC/C OMPLE TE BLD COUNT W/DIF F lymphocytes, absolute count 1.46 x10'3 /uL 1.07-3 .43 Not Available [facility] (Lab) [address] [place], [address], 05/18/2023 15:28:27 05/18/20 23 05/18/2023 CBC/C OMPLE TE BLD COUNT W/DIF F monocytes, absolute count 0.42 x10'3 /uL 0.29-0 .99 Not Available [facility] (Lab) [address] [place], [address], 05/18/2023 15:28:27 05/18/20 23 05/18/2023 CBC/C OMPLE TE BLD COUNT W/DIF F eosinophils, absolute count 0.09 x10'3 /uL 0.02-0 .53 Not Available [facility] (Lab) [address] [place], [address], 05/18/2023 15:28:27 05/18/20 23 05/18/2023 CBC/C OMPLE TE BLD COUNT W/DIF F basophils, absolute count 0.05 x10'3 /uL 0.01-0 .08 Not Available [facility] (Lab) [address] [place], [address], 05/18/2023 15:28:27 05/18/20 23 05/18/2023 CBC/C OMPLE TE BLD COUNT W/DIF F immature granulocytes ,absolute 0.02 x10'3 /uL 0.00-0 .05 Not Available [facility] (Lab) [address] [place], [address], 05/18/2023 15:28:27 05/18/20 23 05/18/2023 CBC/C OMPLE TE BLD COUNT W/DIF F nucleated red blood cells 0.0 % -0 Not Available [facility] (Lab) [address] [place], [address], 05/18/2023 15:28:27 05/18/20 23 05/18/2023 CBC/C OMPLE TE BLD COUNT W/DIF F NRBC# 0.00 x10'3 /uL Not Available [facility] (Lab) [address] [place], [address], 05/18/2023 15:28:27 05/18/20 23 05/18/2023 T3 FREE free T3 3.2 pg/mL 2.77-5 .27 Not Available [facility] (Lab) [address] [place], [address], 05/18/2023 20:09:30 05/18/20 23 05/18/2023 T4 FREE free T4 1.09 NG/dL 0.78-2 .19 Not Available [facility] (Lab) [address] [place], [address], 05/18/2023 18:12:38 05/18/2005/18/2023 TSH thyroid-stim ulating hormone 0.644 uIU/m L 0.465- 4.680 Not Available [facility] (Lab) [address] [place], [address], 05/18/2023 16:00:40 05/18/20 23 05/18/2023 HEMOG LOBIN A1C HA1C 6.6 % 4.0-6. 0 high Diabe stephanie Scree boogie Crite ayush: <5.7% Consi stent with absen ce of diabe stephanie 5.7-6 .4% Consi stent with incre ased risk for diabe stephanie (pred iabet es) >OR=6 .5% Consi stent with diabe stephanie REFER ENCE: Diabe stephanie Care 2016, 39(Brewer ppl.1 ):s13 -s22 Not Available [facility] (Lab) [address] [place], [address], 05/18/2023 15:39:40 05/18/20 23 05/18/2023 LIPID PANEL cholesterol 166 mg/dL 140-19 9 NIH BALBIR NSUS RECOM MENDA TION FOR BHUPINDER STERO L: ADULT CHILD LOW RISK: <200 <170 BORDE RLINE : <200- 239 ----- HIGH RISK: >240 >200 Not Available [facility] (Lab) [address] [place], [address], 05/18/2023 16:05:58 05/18/20 23 05/18/2023 LIPID PANEL triglyceride s 198 mg/dL 0-150 high NIH BALBIR NSUS REPOR T RECOM MENDA TION FOR TRIGL YCERI CLARE: ADULT CHILD LOW RISK: <150 ----- BODER LINE: 150-1 99 ----- HIGH RISK: >200 ----- Not Available [facility] (Lab) [address] [place], [address], 05/18/2023 16:05:58 05/18/20 23 05/18/2023 LIPID PANEL HDL cholesterol 61 mg/dL 40- Not Available [facility] (Lab) [address] [place], [address], 05/18/2023 16:05:58 05/18/20 23 05/18/2023 LIPID PANEL [...] WILL NOT BE REPOR LINDY. Not Available [facility] (Lab) [address] [place], [address], 05/18/2023 16:05:58 05/18/20 23 05/18/2023 COMPR EHENS ROSA ELENA METAB OLIC PANEL sodium 138 mmol/ L 137-14 5 Not Available [facility] (Lab) [address] [place], [address], 05/18/2023 16:06:09 05/18/20 23 05/18/2023 COMPR EHENS ROSA ELENA METAB OLIC PANEL potassium 4.6 mmol/ L 3.5-5. 1 Not Available [facility] (Lab) [address] [place], [address], 05/18/2023 16:06:09 05/18/20 23 05/18/2023 COMPR EHENS ROSA ELENA METAB OLIC PANEL chloride 102 mmol/ L 98-107 Not Available [facility] (Lab) [address] [place], [address], 05/18/2023 16:06:09 05/18/20 23 05/18/2023 COMPR EHENS ROSA ELENA METAB OLIC PANEL carbon dioxide 29 mmol/ L 22-30 Not Available [facility] (Lab) [address] [place], [address], 05/18/2023 16:06:09 05/18/20 23 05/18/2023 COMPR EHENS ROSA ELENA METAB OLIC PANEL anion gap 11.6 mmol/ L 14-22 low Not Available [facility] (Lab) [address] [place], [address], 05/18/2023 16:06:09 05/18/20 23 05/18/2023 COMPR EHENS ROSA ELENA METAB OLIC PANEL glucose 100 mg/dL 70-99 high Not Available [facility] (Lab) [address] [place], [address], 05/18/2023 16:06:09 05/18/20 23 05/18/2023 COMPR EHENS ROSA ELENA METAB OLIC PANEL BUN 9 mg/dL 8-19 Not Available [facility] (Lab) [address] [place], [address], 05/18/2023 16:06:09 05/18/20 23 05/18/2023 COMPR EHENS ROSA ELENA METAB OLIC PANEL creatinine 0.68 mg/dL 0.66-1 .25 Not Available [facility] (Lab) [address] [place], [address], 05/18/2023 16:06:09 05/18/20 23 05/18/2023 COMPR EHENS ROSA ELENA METAB OLIC PANEL GFR >60 Refer ence Range : [place] ge GFR Healt hy Adult : >60 [...] calcu lator is avail able on the [facility] websi te: [email or web address] :[email or web address]/pr [email or web address] ional s/kdo qi/gf r_cal culat or Not Available [facility] (Lab) [address] [place], [address], 05/18/2023 16:06:09 05/18/2005/18/2023 COMPR EHENS ROSA ELENA METAB OLIC PANEL alkaline phosphatase 92 U/L 38-126 Not Available [facility] (Lab) [address] [place], [address], 05/18/2023 16:06:09 05/18/20 23 05/18/2023 COMPR EHENS ROSA ELENA METAB OLIC PANEL alanine aminotransfe rase 30 U/L 0-35 Not Available [facility] (Lab) [address] [place], [address], 05/18/2023 16:06:09 05/18/20 23 05/18/2023 COMPR EHENS ROSA ELENA METAB OLIC PANEL aspartate aminotransfe rase 32 U/L 15-37 Not Available [facility] (Lab) [address] [place], [address], 05/18/2023 16:06:09 05/18/20 23 05/18/2023 COMPR EHENS ROSA ELENA METAB OLIC PANEL bilirubin, total 0.60 mg/dL 0.20-1 .30 Not Available [facility] (Lab) [address] [place], [address], 05/18/2023 16:06:09 05/18/20 23 05/18/2023 COMPR EHENS ROSA ELENA METAB OLIC PANEL calcium 10.8 mg/dL 8.4-10 .2 high Not Available [facility] (Lab) [address] [place], [address], 05/18/2023 16:06:09 05/18/20 23 05/18/2023 COMPR EHENS ROSA ELENA METAB OLIC PANEL total protein 7.0 g/dL 6.3-8. 2 Not Available [facility] (Lab) [address] [place], [address], 05/18/2023 16:06:09 05/18/20 23 05/18/2023 COMPR EHENS ROSA ELENA METAB OLIC PANEL albumin 4.3 g/dL 3.0-4. 4 Not Available [facility] (Lab) [address] [place], [address], 05/18/2023 16:06:09 05/18/20 23 05/18/2023 COMPR EHENS ROSA ELENA METAB OLIC PANEL globulin 2.7 g/dL 2.6-4. 2 Not Available [facility] (Lab) [address] [place], [address], 05/18/2023 16:06:09 05/18/20 23 05/18/2023 COMPR EHENS ROSA ELENA METAB OLIC PANEL A/G ratio 1.6 ratio 1.0-2. 0 Not Available [facility] (Lab) [address] [place], [address], 05/18/2023 16:06:09 07/07/20 23 07/07/2023 MAMMO , scree boogie, digit al, bilat eral [facility] [address] [place] [address] [phone] Patien t Name: TOBI WELLS Access ion #: [id number] Sex: F : 1944 6 Dictat [...] at 2022 10:52: 06 AM Page 1 [facility] (Imaging) [address] [place], [address], 09/30/2023 11:09:21 12/21/19 24 12/20/2023 XR, wrist , 3 or more view No observ ation record ed. [email or web address] Not Available 11/30 14:30:11 12/29/19 24 12/29/2023 RF, elsie nce No observ ation record ed. [facility] [address] [place], [address], 12/30/2023 07:05:11 01/27/20 XR, wrist , 3 or more view No observ ation record ed. [address] [place] [address], [place], [address], 01/27/2024 11:10:53 01/28/20 24 01/28/2024 DEXA, axial skele ton [facility] [address] [place] [address] [phone] Patien t Name: DIOGENES WaltTOBI Access ion #: [id number] Sex: F : 1944 5 Dictat ed By: Yon solano Attend ing Physic lashae: [facility] Physic lashae: YON REY Exam Date: 2023 09:39 AM Exam Name: XR DEXA-H IPS PELVIS SPINE Admitt ing Diagno sis(es ): CLINIC AL HISTOR Y: Postme nopaus al screen ing for osteop orosis . TECHNI QUE: The study was perfor med using a Semantra Unit. Lumbar spine and proxim al femora [...] 2023 10:51: 38 AM Page 1 [email or web address] [facility] (Imaging) [address] [place], [address], 03/15/2024 10:15:56 02/10/20 24 XR, wrist , 3 or more view No observ ation record ed. [facility] [place] [address], [place], [address], 02/10/2024 09:41:26 Result Notes None recorded. Problems Name Problem SNOMED Code Status Onset Date Resolution Date Notes Provider Name and Address Organization Details Recorded Time Closed trimalleol ar fracture of left ankle 9189082132988 9102 Active 2021 Not Available [facility] 11/09/202 3 05:44:44 Mammograph y abnormal 507557863 Active 2021 Not Available [facility] 3 05:44:44 Insomnia 330448834 Active 2018 Not Available [facility] 3 05:44:44 Adhesive capsulitis of left shoulder 7167793627151 07 Active 2019 Not Available [facility] 3 05:44:44 Type 2 diabetes mellitus without complicati on 305526726 Active 2021 Not Available [facility] 3 05:44:44 Vertigo 417426789 Active 2021 Not Available [facility] 3 05:44:44 Dizziness 491427273 Active 2021 Not Available [facility] 3 05:44:44 Hyperlipid emia 55618108 Active 2017 Not Available [facility] 3 05:44:44 Closed trimalleol ar fracture 7395260 Active 2021 Not Available [facility] 3 05:44:45 Polyp of colon 17461315 Active 2021 Not Available [facility] 3 05:44:45 Hyperglyce pacheco 61940881 Active 2021 Not Available [facility] 3 05:44:45 Fatigue 15743960 Active 2022 Not Available [facility] 3 05:44:45 Diabetes mellitus 08486973 Active 2022 Not Available [facility] 3 05:44:45 Type 2 diabetes mellitus 52603484 Active 2022 Not Available [facility] 3 05:44:44 Acute urinary tract infection 247757681 Active 2022 Not Available [facility] 3 05:44:44 Essential hypertensi on 30839208 Active 2022 Not Available [facility] 3 05:44:45 Dysuria 51143989 Active 2022 Not Available [facility] 3 05:44:44 Pain of right wrist 7644725219930 00 Active 2023 ELIANE Coronel [facility] 4 09:26:09 Problem Notes None recorded. Procedures Surgical History Date Name Laterality Status Provider Name and Address Organization Details Recorded Time 4 open reduction of fracture with internal fixation completed Jessica ELIANE Devine [facility] 02/08/2024 08:02:13 2 Ankle Surgery completed Not Available [facility] 2022 05:58:17 2 Most Recent Bone Density completed Not Available [facility] 10/29/2022 05:58:13 2 Ankle Surgery completed Not Available [facility] 2022 05:58:17 Eye Surgery completed Not Available [facility] 10/29/2022 05:58:17 Imaging Results Imaging Date Name Status LastModified by Organiz ation Details LastModified Time 07/07/2023 MAMMO, screening, digital, bilateral completed [email or web address] [facility] (Imaging) [address] [place], [address], 09/30/2023 11:09:21 12/20/2023 XR, wrist, 3 or more view completed [email or web address] Information not available 12/21/2023 14:30:11 12/29/2023 RF, guidance completed [email or web address] [facility] [address] [place], [address], 12/30/2023 07:05:11 01/27/2024 XR, wrist, 3 or more view completed [email or web address] [facility] [place] [address], [place], [address], 01/27/2024 11:10:53 01/28/2024 DEXA, axial skeleton completed [email or web address] [facility] (Imaging) [address] [place], [address], 03/15/2024 10:15:56 02/10/2024 XR, wrist, 3 or more view completed [email or web address] [facility] [place] [address], [place], [address], 02/10/2024 09:41:26 Procedure Notes None recorded. Medical Equipment None Reported. Allergies Allergen ID Allergen Name Allergen Category Reaction Reaction Severity Criticality Documentation Date Start Date Code Code System Note Provider Name and Address Organization Details Recorded Time 85386 trazodone medicatio n other Not available Not available 10/29/2022 05571 RxNorm restl ess legs Not Available [facility] 3 06:17:42 35457 omeprazol e medicatio n Not available Not available Not available 10/29/2022 7646 RxNorm worse dned acid reflu x Not Available [facility] 3 06:17:42 30875 Lexapro medicatio n Not available Not available Not available 10/29/2022 98202 1 RxNorm GI upset Not Available [facility] 3 06:17:42 85147 Benadryl medicatio n other Not available Not available 10/29/2022 13244 7 RxNorm hyper activ ity Not Available [facility] 3 06:17:42 58665 Belsomra medicatio n insomnia Not available Not available 10/29/2022 71819 05 RxNorm Not Available [facility] 3 06:17:43 Medications Name Sig Start Date [...] administ ered by the provider 12/29 completed [facility]: 0003-049 4-20 Not Available Not Available Not [...] administ ered by the provider 12/29 completed [facility]: 0409-427 6-17 Not Available Not Available Not [...] Not Available Not Available Not Available [facility] [place] 09/22 completed Not Available Not [...] Updated DateTime 3 170.18 cm 24.6 kg/m2 49254 g 98.2 [degF] 84 /min 124 mm[Hg] 72 mm[Hg] ELIANE [place] [facility] 10:52:31 Date Recorded Body height Body mass index (BMI) Body weight Pain severity - 0-10 verbal numeric rating [Score] - Reported Provider Name and Address Organization Details Last Updated DateTime 12/22/2023 170.18 cm 24.6 kg/m2 61911 g 6 Jessica Devine [facility] 12/22/2023 09:25:07 Date Recorded Body height Body mass index (BMI) Body weight Pain severity - 0-10 verbal numeric rating [Score] - Reported Provider Name and Address Organization Details Last Updated DateTime 01/13/2024 170.18 cm 24.6 kg/m2 75809 g 3 Jessica Devine [facility] 01/13/2024 10:09:56 Date Recorded Body height Body mass index (BMI) Body weight Pain severity - 0-10 verbal numeric rating [Score] - Reported Provider Name and Address Organization Details Last Updated DateTime 01/27/2024 170.18 cm 24.3 kg/m2 23940.82 g 3 Jessica Devine [facility] 01/27/2024 11:10:11 Date Recorded Body height Body mass index (BMI) Body weight Pain severity - 0-10 verbal numeric rating [Score] - Reported Provider Name and Address Organization Details Last Updated DateTime 02/10/2024 170.18 cm 24.3 kg/m2 24007.82 g 1 Jessica Devine [facility] 02/10/2024 09:40:38 Social History Question Answer Notes LastModified by Organization Details LastModified Time Tobacco Smoking Status Never Smoker Not Available [facility] 10/29/2022 05:57:35 Do You Have An Advance Directive? Yes [id number] Information not available 10/29/2022 What Is Your Level Of Alcohol Consumption? None MIGRATION.0301 [id number] Information not available 10/29/2022 Are You Blind Or Do You Have Difficulty Seeing? Yes Wears Glasses MIGRATION.0301 [id number] Information not available 10/29/2022 What Is Your Level Of Caffeine Consumption? Moderate MIGRATION.0301 [id number] Information not available 10/29/2022 How Much Tobacco Do You Chew? None MIGRATION.0301 [id number] Information not available 10/29/2022 In The 14 Days Before Symptom Onset, Have You Had Close Contact With A Laboratory-confi rmed COVID-19 While That Case Was Ill? No MIGRATION.030 [id number] Information not available 10/29/2022 In The 14 Days Before Symptom Onset, Have You Had Close Contact With A Person Who Is Under Investigation For COVID-19 While That Person Was Ill? No MIGRATION.030 [id number] Information not available 10/29/2022 Are You Deaf Or Do You Have Serious Difficulty Hearing? No MIGRATION.0301 [id number] Information not available 10/29/2022 What Type Of Diet Are You Following? REGULAR MIGRATION.030 [id number] Information not available 10/29/2022 Which Illicit Or Recreational Drugs Have You Used? None MIGRATION.030 [id number] Information not available 10/29/2022 Do You Or Have You Ever Used E-cigarettes Or Vape? Never Used Electronic Cigarettes MIGRATION.030 [id number] Information not available 10/29/2022 What Is The Highest Grade Or Level Of School You Have Completed Or The Highest Degree You Have Received? [id number] MIGRATION.030 [id number] Information not available 10/29/2022 What Is Your Occupation? Retired MIGRATION.030 [id number] Information not available 10/29/2022 Have There Been Any Changes To Your Family Or Social Situation? No MIGRATION.030 [id number] Information not available 10/29/2022 What Is The Fluoride Status Of Your Home? Unknown MIGRATION.030 [id number] Information not available 10/29/2022 Are There Any Guns Present In Your Home? No MIGRATION.030 [id number] Information not available 10/29/2022 Do You Use Insect Repellent Routinely? No MIGRATION.0301 [id number] Information not available 10/29/2022 Where Do You Live? [place] MIGRATION.030 [id number] Information not available 10/29/2022 Do You Have A Medical Power Of Social Sciences Department Chair? Yes MIGRATION.030 [id number] Information not available 10/29/2022 What Was The Date Of Your Most Recent Tobacco Screening? 05/18/2023 Information not available 05/18/2023 Do You Have Any Pets? Yes MIGRATION.0301 [id number] Information not available 10/29/2022 What Is Your Relationship Status? MIGRATION.0301 [id number] Information not available 10/29/2022 Do You Use Your Seat Belt Or Car Seat Routinely? Yes MIGRATION.0301 [id number] Information not available 10/29/2022 Do You Have Smoke And Carbon Monoxide Detectors In Your Home? Yes MIGRATION.0301 [id number] Information not available 10/29/2022 Are You Passively Exposed To Smoke? No MIGRATION.0301 027902 Information not available 10/29/2022 Do You Or Have You Ever Used Smokeless Tobacco? Never Used Smokeless Tobacco MIGRATION.0301 [id number] Information not available 10/29/2022 Are There Any Smokers In Your House? No MIGRATION.0301 394399 Information not available 10/29/2022 How Much Tobacco Do You Smoke? No MIGRATION.0301 691433 Information not available 10/29/2022 What Types Of Sporting Activities Do You Participate In? None MIGRATION.0301 [id number] Information not available 10/29/2022 Do You Feel Stressed (tense, Restless, Nervous, Or Anxious, Or Unable To Sleep At Night)? [id number] MIGRATION.0301 609546 Information not available 10/29/2022 Do You Use Any Illicit Or Recreational Drugs? No MIGRATION.0301 102667 Information not available 10/29/2022 Do You Use Sunscreen Routinely? No MIGRATION.0301 235645 Information not available 10/29/2022 Has Tobacco Cessation Counseling Been Provided? No Not Needed-ne ve Smoked MIGRATION.0301 294751 Information not available 10/29/2022 How Many Years Have You Smoked Tobacco? 0 MIGRATION.0301 009401 Information not available 10/29/2022 Have You Recently Traveled Abroad? No MIGRATION.0301 611384 Information not available 10/29/2022 Do You Have Any Dietary Restrictions? No MIGRATION.0301 899341 Information not available 10/29/2022 Do You Or Have You Ever Used Any Other Forms Of Tobacco Or Nicotine? No MIGRATION.0301 215722 Information not available 10/29/2022 Sex: Female Functional Status Question Answer Note LastModified by Organizat ion Details LastModified Time Do you have difficulty walking or climbing stairs? No MIGRATION.[id number] 026 Information not available 10/29/2022 Do you have transportation difficulties? No MIGRATION.8819531 026 Information not available 10/29/2022 Are you able to walk? YESWOREST MIGRATION.6087886 026 Information not available 10/29/2022 Do you have difficulty doing errands alone? No MIGRATION.8664309 026 Information not available 10/29/2022 Are you able to care for yourself? Yes MIGRATION.2520112 026 Information not available 10/29/2022 Do you have difficulty dressing or bathing? No MIGRATION.3697593 026 Information not available 10/29/2022 What is your exercise level? Occasional MIGRATION.9925387 026 Information not available 10/29/2022 Mental Status Question Answer Note LastModified by Organizat ion Details LastModified Time Do you have difficulty concentrating, remembering or making decisions? No MIGRATION.[id number] 6 Information not available 10/29/2022 Family History Relationship Description Onset Age of this Age Resolved Age Notes LastModified by Organization Details LastModified Time Mother Myocardial infarction MIGRATION.367 [id number] Not available 10/29/2022 05:58:24 Mother Basal cell carcinoma of skin MIGRATION.325 [id number] Not available 10/29/2022 05:58:24 Father Diabetes mellitus MIGRATION.510 [id number] Not available 10/29/2022 05:58:24 Father Amyotrophic lateral sclerosis deceas ed MIGRATION.167 [id number] Not available 10/29/2022 05:58:24 Brother Parkinson's disease MIGRATION.012 [id number] Not available 10/29/2022 05:58:24 Medical History Condition Response NERVE DISEASE N BLINDNESS N RHEUMATIC FEVER N KIDNEY STONES N BLADDER PROBLEMS N MRSA N OTHER # 1 N POLIO N LUNG DISEASE/DISORDER N HISTORY OF DRUG ABUSE N RADIATION / CHEMOTHERAPY N COPD N Other # 2 N BLOOD DISEASES N EAR OR HEARING PROBLEMS N MUMPS N SHINGLES N BOWEL PROBLEMS N DEPRESSION (INCLUDING POST ) N STROKE/TIA Y ULCERS N BENIGN PROSTATIC [...] N CHRONIC PAIN SYNDROME N HYPOTHYROIDISM N CONSTIPATION N CAROTID BLOCKAGE N BACK / NECK PROBLEMS N HAVE YOU BEEN HOSPITALIZED OR SEEN IN [facility] IN THE PAST YEAR ? Y ATHEROSCLEROSIS [...] 50 mcg/0.25mL dose 1 completed Not Available [facility] 07/09/2023 05:44:45 COVID-19, mRNA, LNP-S, PF, 100 mcg/0.5mL dose or 50 mcg/0.25mL dose 1 completed Not Available [facility] 07/09/2023 05:44:45 Influenza, high-dose, quadrivalent, PF 0 completed Not Available [facility] 07/09/2023 05:44:45 pneumococcal polysaccharide PPV23 0 completed Not Available [facility] 07/09/2023 05:44:45 zoster live 9 completed Not Available [facility] 07/09/2023 05:44:45 Pneumococcal conjugate PCV 13 9 completed Not Available [facility] 07/09/2023 05:44:45 influenza, unspecified formulation 8 completed Not Available [facility] 07/09/2023 05:44:45 COVID-19, mRNA, LNP-S, PF, 100 mcg/0.5mL dose or 50 mcg/0.25mL dose 1 completed Not Available [facility] 07/09/2023 05:44:45 Influenza, high-dose, quadrivalent, PF 1 completed Not Available [facility] 07/09/2023 05:44:45 Past Encounters Encounter ID Performer Location Encounter Start Date Encounter Closed Date Diagnosis/Indication Diagnosis SNOMED-CT Code Diagnosis ICD10 Code Diagnosis Note [id number] Bar Rey MD [facility] [address] [address] 03/18/2021 00:00:00 03/18/2021 21:49:28 [id number] Bar Rey MD [facility] 2043 [facility] [address] [address] 09/09/2021 00:00:00 09/09/2021 11:29:51 [id number] Satnam Trejo MD [facility] [address] 11/21/2021 00:00:00 11/21/2021 12:30:01 [id number] Satnam Trejo MD [facility] [address] 12/05/2021 00:00:00 12/05/2021 09:32:05 [id number] Satnam Trejo MD [facility] [address] [address] 12/26/2021 00:00:00 12/26/2021 12:25:10 [id number] Satnam Trejo MD [facility] [address] [address] 01/16/2022 00:00:00 01/16/2022 11:40:35 [id number] Bar Rey MD [facility] 2043 [facility] [address] [address] 03/10/2022 00:00:00 03/16/2022 10:37:[id number] [facility] Internal Med [facility] [address] [place] [address] [place] [address] 06/09/2022 00:00:00 06/09/2022 14:04:[id number] [facility] Internal Med [facility] [address] [place] [address] [place] [address] 07/14/2022 00:00:00 07/14/2022 22:48:[id number] [facility] Internal Med [facility] [address] [place] [address] 11/17/2022 10:57:08 11/17/2022 11:50:03 Hyperlipidemia 96133611 E78.5 Type 2 tej betes mellitus without complication 446279791 E11.9 Fatigue 02004862 R53.83 [id number] [facility] Internal Med [facility] [address] [place] [address] 05/18/2023 10:38:23 05/18/2023 11:26:27 Hyperlipidemia 31630776 E78.5 Type 2 tej betes mellitus without complication 482815851 E11.9 Essential hypertension 75026433 I10 Dysuria 81782656 R30.0 [id number] Param [address]iro [address] [facility] [place] [address] [place] [address] 12/22/2023 09:12:16 12/22/2023 09:42:43 Pain of right wrist [id number] 39401 M25.744 [id number] [address] [facility] [place] [address] [place] [address] 01/13/2024 10:07:37 01/13/2024 10:30:37 Pain of right wrist [id number] 07607 M25.892 [id number] [facility] [place] [address] [place] [address] 01/27/2024 11:07:46 01/27/2024 11:54:15 Pain of right wrist [id number] 58512 M25.608 [id number] Praam Monteiro MD [facility] [place] [address] [place] [address] 02/10/2024 09:35:52 02/10/2024 10:17:29 Pain of right wrist [id number] 84838 M25.531 Health Concerns Section Related Observation LastModified by Organization Detai ls LastModified Time None Recorded Concern Status LastModified by Organization Details LastModified Time None Recorded Advance Directives Directive Y: Payers Encounter Date Sequence Insurance Name Policy Number Policy Metcalf Covered Member ID Metcalf Member ID Guarantor Name 05/18/2023 1 [facility] (MEDICARE REPLACEMENT/A DVANTAGE - HMO) [id number] Mariia Riley [id number] Mariia Riley 12/22/2023 1 [facility] (MEDICARE REPLACEMENT/A DVANTAGE - HMO) [id number] Mariia Riley [id number] Mariia Riley 01/13/2024 1 [facility] (MEDICARE REPLACEMENT/A DVANTAGE - HMO) [id number] Mariia Riley [id number] Mariia Riley 01/27/2024 1 [facility] (MEDICARE REPLACEMENT/A DVANTAGE - HMO) [id number] Mariia Riley [id number] Mariia Riley 02/10/2024 1 [facility] (MEDICARE REPLACEMENT/A DVANTAGE - HMO) [id number] Mariia Riley [id number] Mariia Riley Notes Date Note Type Note Provider Name and Address Organization Details Recorded Time 05/18/2023 text/html Insomnia about t he same fatigue comes and goes hyperlipidemia tries to watch diet diabetes cannot tolerate metformin. Some dysuria Bar Rey MD [address] [place] [address], [facility] [address], [place], [address], [facility] [place] 06/14/2023 14:30:15 OBGyn Episode No OBEpisode recorded.
--- OUTSIDE RECORDS SUMMARY | 2025-01-07 07:08 | XMS_ITS | Data Portability ---
Author Organization [facility] Address [address] [facility] [place] [address] Care Team Providers [employer] Manager Name Role Phone BAR REY Primary Care Provider Assessment Encounter Date Assessment Date Assessment LastModified by Organization Details LastModified Time 11/16/2023 11/16/2023 Blood work urina lysis follow-up in 6 months obtain old records she has been reluctant to take metformin in the past and cholesterol medicine so she says. [email or web address] Not available 11/29/2023 16:34:10 05/10/2024 05/10/2024 We will obtain b lood work see her back in 6 weeks. We may need to stop her statin just to see if she gets better [email or web address] Not available 05/29/2024 12:08:01 06/21/2024 06/21/2024 subjective weakn ess we will check total CK I will check thyroid antibodies all delays pseudocholinesterase blocking antibodies regular follow up in 3 months continue dietary strategies for diabetes continue dietary strategies for hyperlipidemia as we stopped statin because of the subjective weakness again this is something that has been going on for quite some time [email or web address] Not available 07/03/2024 12:09:13 09/27/2024 09/27/2024 because of her m uscle complaints we have held the statin she needs blood work to re-evaluate her diabetes and her lipid status I believe she is seeing Neurology in the next month or 2 she will see me in 4 months Not available 10/02/2024 18:42:56 Plan of Treatment Reminders Order Date Submit Date Provider Last Modified By Organization Details Last Modified Time Details Appointments ANY 15 2024 09:00A Dilip Rey MD Not available Not available Not available Lab CK (creatine kinase), total, serum 2023 024 KAITLIN Mercado, [address], [place], [address], 07/05/2024 13:15:05 thyroglob ulin Ab, serum 2023 024 KAITLIN Mercado, [address], [place], [address], 07/05/2024 13:15:08 aldolase, serum 2023 024 KAITLIN Mercado, [address], [place], [address], 07/05/2024 13:15:07 acetylcho line receptor Ab, serum 2023 024 KAITLIN Mercado, [address], [place], [address], 07/05/2024 13:15:09 CK (creatine kinase), total, serum 2023 024 KAITLIN Mercado, [address], [place], [address], 05/11/2024 19:09:29 JORGE (antinucl ear antibodie s) screen, serum 2023 024 KAITLIN Mercado, [address], [place], [address], 05/11/2024 19:09:28 rf (rheumato id factor), serum 2023 024 KAITLIN Mercado [address], [place], [address], 05/11/2024 19:09:31 CBC w/ auto diff 2023 024 KAITLIN Mercado [address], [place], [address], 05/11/2024 19:09:30 CMP, serum or plasma 2023 024 [place] [facility], [address], [place], [address], 05/11/2024 19:09:28 T3, free, serum or plasma 2023 024 [facility] [address], [place], [address], 05/11/2024 19:09:32 T4, free, serum 2023 024 [place] [facility], [address], [place], [address], 05/11/2024 19:09:32 TSH, ultra-sen sitive, serum 2023 024 [facility], [address], [place], [address], 05/11/2024 19:09:30 HbA1c (hemoglob in A1c), blood 2023 024 [id number] In-Office Order, Internal Use Only DO Not Attach Compendium DO Not Attach Compendium, Do Not Delete/merge, [id number] 11/16/2023 11:48:38 CBC w/ auto diff 2023 024 [facility], [address], [place], [address], 11/17/2023 11:15:08 lipid panel, serum 2023 024 [place] [facility], [address], [place], [address], 11/17/2023 11:15:06 CMP, serum or plasma 2023 024 KAITLINASIA Mercado, [address], [facility] [address], [place], [address], 11/17/2023 11:15:07 Referral None recorded. Procedures None recorded. Surgeries None recorded. Imaging None recorded. Medication Orders Macrobid 100 mg capsule [address] [place] [address] [id number], [address] [place], [address], 01/06/2025 12:21:59 Patient TargetsNo targets recorded. Patient InstructionsNo instructions recorded. Reason for Referral None Reported. Results Created Date Observation Date Name Description Value Unit Range Abnormal Flag Note LastModifiedBy Organization Detail LastModifiedTime 11/16/1911/17/2023 LIPID PANEL cholesterol, total 175 mg/dL 100-19 9 Not Available [facility] ([facility]) [address] [place], [address], 11/17/2023 11:15:06 11/16/19 24 11/17/2023 LIPID PANEL triglyceride s 186 mg/dL 0-149 above high normal Not Available [facility] ([facility]) [address] [place], [address], 11/17/2023 11:15:06 11/16/19 24 11/17/2023 LIPID PANEL HDL cholesterol 53 mg/dL >39 Not Available [facility]) [address] [place], [address], 11/17/2023 11:15:06 11/16/19 24 11/17/2023 LIPID PANEL VLDL cholesterol vladimir 32 mg/dL 5-40 Not Available [facility]) [address] [place], [address], 11/17/2023 11:15:06 11/16/19 24 11/17/2023 LIPID PANEL LDL chol calc ([facility]) 90 mg/dL 0-99 Not Available [facility]) [address] [place], [address], 11/17/2023 11:15:06 11/16/19 24 11/17/2023 CMP14 glucose 128 mg/dL 70-99 above high normal Not Available [facility] ([facility]) [address] [place], [address], 11/17/2023 11:15:07 11/16/19 24 11/17/2023 CMP14 BUN 11 mg/dL 8-27 Not Available [facility] ([facility]) [address] [facility] [place], [address], 11/17/2023 11:15:07 11/16/19 24 11/17/2023 CMP14 creatinine 0.74 mg/dL 0.57-1 .00 Not Available [facility] ([facility]) [address] [facility] [place], [address], 11/17/2023 11:15:07 11/16/19 24 11/17/2023 CMP14 eGFR 84 mL/mi n/1.7 3 >59 Not Available [facility] ([facility]) [address] [facility] [place], [address], 11/17/2023 11:15:07 11/16/19 24 11/17/2023 CMP14 sodium 142 mmol/ L 134-14 4 Not Available [facility] ([facility]) [address] [facility] [place], [address], 11/17/2023 11:15:07 11/16/19 24 11/17/2023 CMP14 potassium 4.4 mmol/ L 3.5-5. 2 Not Available [facility] ([facility]) [address] [place], [address], 11/17/2023 11:15:07 11/16/19 24 11/17/2023 CMP14 chloride 105 mmol/ L 96-106 Not Available [facility] ([facility]) [address] [facility] [place], [address], 11/17/2023 11:15:07 11/16/19 24 11/17/2023 CMP14 carbon dioxide, total 24 mmol/ L Not Available [facility] ([facility]) [address] [facility], [place], [address], 11/17/2023 11:15:07 11/16/19 24 11/17/2023 CMP14 calcium 10.3 mg/dL 8.7-10 .3 Not Available [facility] ([facility]) [address] [facility], [place], [address], 11/17/2023 11:15:07 11/16/19 24 11/17/2023 CMP14 protein, total 6.7 g/dL 6.0-8. 5 Not Available [facility] ([facility]) [address] [facility], [place], [address], 11/17/2023 11:15:07 11/16/19 24 11/17/2023 CMP14 albumin 4.4 g/dL 3.8-4. 8 Not Available [facility] ([facility]) [address] [facility], [place], [address], 11/17/2023 11:15:07 11/16/19 24 11/17/2023 CMP14 globulin, total 2.3 g/dL 1.5-4. 5 Not Available [facility] ([facility]) [address] [facility], [place], [address], 11/17/2023 11:15:07 11/16/19 24 11/17/2023 CMP14 A/G ratio 1.9 1.2-2. 2 Not Available [facility] ([facility]) [address] [place], [address], 11/17/2023 11:15:07 11/16/19 24 11/17/2023 CMP14 bilirubin, total 0.6 mg/dL 0.0-1. 2 Not Available [facility] ([facility]) [address] [facility], [place], [address], 11/17/2023 11:15:07 11/16/19 24 11/17/2023 CMP14 alkaline phosphatase 89 IU/L 44-121 Not Available [facility] ([facility]) [address] [facility], [place], [address], 11/17/2023 11:15:07 11/16/19 24 11/17/2023 CMP14 AST (SGOT) 25 IU/L 0-40 Not Avail able [facility] ([facility]) [address] [facility], [place], [address], 11/17/2023 11:15:07 11/16/19 24 11/17/2023 CMP14 ALT (SGPT) 23 IU/L 0-32 Not Avail able [facility] ([facility]) [address] [facility], [place], [address], 11/17/2023 11:15:07 11/16/19 24 11/17/2023 CBC WITH DIFFE RENTI AL/PL ATELE T WBC 6.1 x10e3 /uL 3.4-10 .8 Not Available [facility] ([facility]) [address] [facility], [place], [address], 11/17/2023 11:15:08 11/16/19 24 11/17/2023 CBC WITH DIFFE RENTI AL/PL ATELE T RBC 5.19 x10e6 /uL 3.77-5 .28 Not Available [facility] ([facility]) [address] [facility], [place], [address], 11/17/2023 11:15:08 11/16/19 24 11/17/2023 CBC WITH DIFFE RENTI AL/PL ATELE T hemoglobin 14.3 g/dL 11.1-1 5.9 Not Available [facility] ([facility]) [address] [place], [address], 11/17/2023 11:15:08 11/16/19 24 11/17/2023 CBC WITH DIFFE RENTI AL/PL ATELE T hematocrit 44.1 % 34.0-4 6.6 Not Available [facility] ([facility]) [address] [facility], [place], [address], 11/17/2023 11:15:08 11/16/19 24 11/17/2023 CBC WITH DIFFE RENTI AL/PL ATELE T MCV 85 fL 79-97 Not Available [facility] ([facility]) [address] [facility], [place], [address], 11/17/2023 11:15:08 11/16/19 24 11/17/2023 CBC WITH DIFFE RENTI AL/PL ATELE T MCH 27.6 pg 26.6-3 3.0 Not Available [facility] ([facility]) [address] [facility], [place], [address], 11/17/2023 11:15:08 11/16/19 24 11/17/2023 CBC WITH DIFFE RENTI AL/PL ATELE T MCHC 32.4 g/dL 31.5-3 5.7 Not Available [facility] ([facility]) [address] [facility], [place], [address], 11/17/2023 11:15:08 11/16/19 24 11/17/2023 CBC WITH DIFFE RENTI AL/PL ATELE T RDW 12.3 % 11.7-1 5.4 Not Available [facility] ([facility]) [address] [place], [address], 11/17/2023 11:15:08 11/16/19 24 11/17/2023 CBC WITH DIFFE RENTI AL/PL ATELE T platelets 216 x10e3 /uL 150-45 0 Not Available [facility] ([facility]) [address] [place], [address], 11/17/2023 11:15:08 11/16/19 24 11/17/2023 CBC WITH DIFFE RENTI AL/PL ATELE T neutrophils 66 % notest ab. Not Available [facility] ([facility]) [address] [facility], [place], [address], 11/17/2023 11:15:08 11/16/19 24 11/17/2023 CBC WITH DIFFE RENTI AL/PL ATELE T lymphs 25 % notest ab. Not Available [facility] ([facility]) [address] [facility], [place], [address], 11/17/2023 11:15:08 11/16/19 24 11/17/2023 CBC WITH DIFFE RENTI AL/PL ATELE T monocytes 6 % notest ab. Not Available [facility] ([facility]) [address] [facility], [place], [address], 11/17/2023 11:15:08 11/16/19 24 11/17/2023 CBC WITH DIFFE RENTI AL/PL ATELE T eos 2 % notest ab. Not Available [facility] ([facility]) [address] [facility], [place], [address], 11/17/2023 11:15:08 11/16/19 24 11/17/2023 CBC WITH DIFFE RENTI AL/PL ATELE T basos 1 % notest ab. Not Available [facility] ([facility]) [address] [facility], [place], [address], 11/17/2023 11:15:08 11/16/19 24 11/17/2023 CBC WITH DIFFE RENTI AL/PL ATELE T neutrophils (absolute) 4.0 x10e3 /uL 1.4-7. 0 Not Available [facility] ([facility]) [address] [facility], [place], [address], 11/17/2023 11:15:08 11/16/19 24 11/17/2023 CBC WITH DIFFE RENTI AL/PL ATELE T lymphs (absolute) 1.5 x10e3 /uL 0.7-3. 1 Not Available [facility] ([facility]) [address] [facility], [place], [address], 11/17/2023 11:15:08 11/16/19 24 11/17/2023 CBC WITH DIFFE RENTI AL/PL ATELE T monocytes(ab solute) 0.4 x10e3 /uL 0.1-0. 9 Not Available [facility] ([facility]) [address] [facility], [place], [address], 11/17/2023 11:15:08 11/16/19 24 11/17/2023 CBC WITH DIFFE RENTI AL/PL ATELE T eos (absolute) 0.1 x10e3 /uL 0.0-0. 4 Not Available [facility] ([facility]) [address] [facility], [place], [address], 11/17/2023 11:15:08 11/16/19 24 11/17/2023 CBC WITH DIFFE RENTI AL/PL ATELE T baso (absolute) 0.0 x10e3 /uL 0.0-0. 2 Not Available [facility] ([facility]) [address] [facility], [place], [address], 11/17/2023 11:15:08 11/16/19 24 11/17/2023 CBC WITH DIFFE RENTI AL/PL ATELE T immature granulocytes 0 % notest ab. Not Available [facility] ([facility]) [address] [facility], [place], [address], 11/17/2023 11:15:08 11/16/19 24 11/17/2023 CBC WITH DIFFE RENTI AL/PL ATELE T immature grans (abs) 0.0 x10e3 /uL 0.0-0. 1 Not Available [facility] ([facility]) [address] [place], [address], 11/17/2023 11:15:08 11/16/19 24 11/16/2023 HbA1c (hemo globi n A1c), blood HbA1c 6.7 Not Available In-Office Order Internal Use Only DO Not Attach Compendium DO Not Attach Compendium, Do Not Delete/merge, [id number] 11/16/2023 10:38:13 05/10/20 24 05/11/2024 JORGE W/REF PRISCILLA JORGE direct NEGATI VE negati ve Not Available [facility] ([facility]) [address] [facility], [place], [address], 05/11/2024 19:09:28 05/10/20 24 05/11/2024 COMP. METAB OLIC PANEL (14) glucose 139 mg/dL 70-99 above high normal Not Available [facility] ([facility]) [address] [facility], [place], [address], 05/11/2024 19:09:28 05/10/20 24 05/11/2024 COMP. METAB OLIC PANEL (14) BUN 7 mg/dL 8-27 below low normal Not Available [facility] ([facility]) [address] [place], [address], 05/11/2024 19:09:28 05/10/20 24 05/11/2024 COMP. METAB OLIC PANEL (14) creatinine 0.76 mg/dL 0.57-1 .00 Not Available [facility] ([facility]) [address] [place], [address], 05/11/2024 19:09:28 05/10/20 24 05/11/2024 COMP. METAB OLIC PANEL (14) eGFR 81 mL/mi n/1.7 3 >59 Not Available [facility] ([facility]) [address] [place], [address], 05/11/2024 19:09:28 05/10/20 24 05/11/2024 COMP. METAB OLIC PANEL (14) BUN/creatini ne ratio 9 12-28 below low normal Not Available [facility] ([facility]) [address] [place], [address], 05/11/2024 19:09:28 05/10/20 24 05/11/2024 COMP. METAB OLIC PANEL (14) sodium 142 mmol/ L 134-14 4 Not Available [facility] ([facility]) [address] [place], [address], 05/11/2024 19:09:28 05/10/20 24 05/11/2024 COMP. METAB OLIC PANEL (14) potassium 4.6 mmol/ L 3.5-5. 2 Not Available [facility] ([facility]) [address] [place], [address], 05/11/2024 19:09:28 05/10/20 24 05/11/2024 COMP. METAB OLIC PANEL (14) chloride 102 mmol/ L 96-106 Not Available [facility] ([facility]) [address] [place], [address], 05/11/2024 19:09:28 05/10/20 24 05/11/2024 COMP. METAB OLIC PANEL (14) carbon dioxide, total 23 mmol/ L 20-29 Not Available [facility] ([facility]) [address] [place], [address], 05/11/2024 19:09:28 05/10/20 24 05/11/2024 COMP. METAB OLIC PANEL (14) calcium 10.5 mg/dL 8.7-10 .3 above high normal Not Available [facility] ([facility]) [address] [place], [address], 05/11/2024 19:09:28 05/10/20 24 05/11/2024 COMP. METAB OLIC PANEL (14) protein, total 6.9 g/dL 6.0-8. 5 Not Available [facility] ([facility]) [address] [place], [address], 05/11/2024 19:09:28 05/10/20 24 05/11/2024 COMP. METAB OLIC PANEL (14) albumin 4.3 g/dL 3.8-4. 8 Not Available [facility] ([facility]) [address], [place], [address], 05/11/2024 19:09:28 05/10/20 24 05/11/2024 COMP. METAB OLIC PANEL (14) globulin, total 2.6 g/dL 1.5-4. 5 Not Available [facility] ([facility]) [address], [place], [address], 05/11/2024 19:09:28 05/10/20 24 05/11/2024 COMP. METAB OLIC PANEL (14) bilirubin, total 0.5 mg/dL 0.0-1. 2 Not Available [facility] ([facility]) [address] [facility], [place], [address], 05/11/2024 19:09:28 05/10/20 24 05/11/2024 COMP. METAB OLIC PANEL (14) alkaline phosphatase 79 IU/L 44-121 Not Available [facility] ([facility]) [address] [facility], [place], [address], 05/11/2024 19:09:28 05/10/20 24 05/11/2024 COMP. METAB OLIC PANEL (14) AST (SGOT) 25 IU/L 0-40 Not Available [facility] ([facility]) [address] [facility], [place], [address], 05/11/2024 19:09:28 05/10/20 24 05/11/2024 COMP. METAB OLIC PANEL (14) ALT (SGPT) 18 IU/L 0-32 Not Available [facility] ([facility]) [address] [facility], [place], [address], 05/11/2024 19:09:28 05/10/20 24 05/11/2024 CK, TOTAL creatine kinase,total 273 U/L 32-182 above high normal Not Available [facility] ([facility]) [address] [facility], [place], [address], 05/11/2024 19:09:29 05/10/20 24 05/11/2024 TSH TSH 0.836 uIU/m L 0.450- 4.500 Not Available [facility] ([facility]) [address] [facility], [place], [address], 05/11/2024 19:09:30 05/10/20 24 05/11/2024 CBC WITH DIFFE RENTI AL/PL ATELE T WBC 5.9 x10e3 /uL 3.4-10 .8 Not Available [facility] ([facility]) [address] [facility], [place], [address], 05/11/2024 19:09:30 05/10/20 24 05/11/2024 CBC WITH DIFFE RENTI AL/PL ATELE T RBC 5.13 x10e6 /uL 3.77-5 .28 Not Available [facility] ([facility]) [address] [facility], [place], [address], 05/11/2024 19:09:30 05/10/20 24 05/11/2024 CBC WITH DIFFE RENTI AL/PL ATELE T hemoglobin 14.6 g/dL 11.1-1 5.9 Not Available [facility] ([facility]) [address] [facility], [place], [address], 05/11/2024 19:09:30 05/10/20 24 05/11/2024 CBC WITH DIFFE RENTI AL/PL ATELE T hematocrit 45.1 % 34.0-4 6.6 Not Available [facility] ([facility]) [address] [facility], [place], [address], 05/11/2024 19:09:30 05/10/20 24 05/11/2024 CBC WITH DIFFE RENTI AL/PL ATELE T MCV 88 fL 79-97 Not Available [facility] ([facility]) [address] [facility], [place], [address], 05/11/2024 19:09:30 05/10/20 24 05/11/2024 CBC WITH DIFFE RENTI AL/PL ATELE T MCH 28.5 pg 26.6-3 3.0 Not Available [facility] ([facility]) [address] [facility], [place], [address], 05/11/2024 19:09:30 05/10/20 24 05/11/2024 CBC WITH DIFFE RENTI AL/PL ATELE T MCHC 32.4 g/dL 31.5-3 5.7 Not Available [facility] ([facility]) [address] [facility], [place], [address], 05/11/2024 19:09:30 05/10/20 24 05/11/2024 CBC WITH DIFFE RENTI AL/PL ATELE T RDW 12.1 % 11.7-1 5.4 Not Available [facility] ([facility]) [address] [facility], [place], [address], 05/11/2024 19:09:30 05/10/20 24 05/11/2024 CBC WITH DIFFE RENTI AL/PL ATELE T platelets 242 x10e3 /uL 150-45 0 Not Available [facility] ([facility]) [address] [facility], [place], [address], 05/11/2024 19:09:30 05/10/20 24 05/11/2024 CBC WITH DIFFE RENTI AL/PL ATELE T neutrophils 61 % notest ab. Not Available [facility] ([facility]) [address] [place], [address], 05/11/2024 19:09:30 05/10/20 24 05/11/2024 CBC WITH DIFFE RENTI AL/PL ATELE T lymphs 29 % notest ab. Not Available [facility] ([facility]) [address] [facility], [place], [address], 05/11/2024 19:09:30 05/10/20 24 05/11/2024 CBC WITH DIFFE RENTI AL/PL ATELE T monocytes 7 % notest ab. Not Available [facility] ([facility]) [address] [facility], [place], [address], 05/11/2024 19:09:30 05/10/20 24 05/11/2024 CBC WITH DIFFE RENTI AL/PL ATELE T eos 2 % notest ab. Not Available [facility] ([facility]) [address] [facility], [place], [address], 05/11/2024 19:09:30 05/10/20 24 05/11/2024 CBC WITH DIFFE RENTI AL/PL ATELE T basos 1 % notest ab. Not Available [facility] ([facility]) [address] [facility], [place], [address], 05/11/2024 19:09:30 05/10/20 24 05/11/2024 CBC WITH DIFFE RENTI AL/PL ATELE T neutrophils (absolute) 3.7 x10e3 /uL 1.4-7. 0 Not Available [facility] ([facility]) [address] [facility], [place], [address], 05/11/2024 19:09:30 05/10/20 24 05/11/2024 CBC WITH DIFFE RENTI AL/PL ATELE T lymphs (absolute) 1.7 x10e3 /uL 0.7-3. 1 Not Available [facility] ([facility]) [address] [facility], [place], [address], 05/11/2024 19:09:30 05/10/20 24 05/11/2024 CBC WITH DIFFE RENTI AL/PL ATELE T monocytes(ab solute) 0.4 x10e3 /uL 0.1-0. 9 Not Available [facility] ([facility]) [address] [facility], [place], [address], 05/11/2024 19:09:30 05/10/20 24 05/11/2024 CBC WITH DIFFE RENTI AL/PL ATELE T eos (absolute) 0.1 x10e3 /uL 0.0-0. 4 Not Available [facility] ([facility]) [address] [facility], [place], [address], 05/11/2024 19:09:30 05/10/20 24 05/11/2024 CBC WITH DIFFE RENTI AL/PL ATELE T baso (absolute) 0.0 x10e3 /uL 0.0-0. 2 Not Available [facility] ([facility]) [address] [facility], [place], [address], 05/11/2024 19:09:30 05/10/20 24 05/11/2024 CBC WITH DIFFE RENTI AL/PL ATELE T immature granulocytes 0 % notest ab. Not Available [facility] ([facility]) [address] [facility], [place], [address], 05/11/2024 19:09:30 05/10/20 24 05/11/2024 CBC WITH DIFFE RENTI AL/PL ATELE T immature grans (abs) 0.0 x10e3 /uL 0.0-0. 1 Not Available [facility] ([facility]) [address] [facility], [place], [address], 05/11/2024 19:09:30 05/10/20 24 05/11/2024 RHEUM ATOID FACTO R (RF) rheumatoid factor (rf) 10.7 IU/mL <14.0 Not Available [facility] ([facility]) [address] [facility], [place], [address], 05/11/2024 19:09:31 09/10/05/11/2024 TRIIO DOTHY JOHNSON E (T3), FREE triiodothyro nine (T3), free 2.9 pg/mL 2.0-4. 4 Not Available [facility] ([facility]) [address] [place], [address], 05/11/2024 19:09:32 05/10/20 24 05/11/2024 T4,FR EE(DI RECT) T4,free(dire ct) 1.13 NG/dL 0.82-1 .77 Not Available [facility] ([facility]) [address] [place], [address], 05/11/2024 19:09:32 06/21/20 24 06/22/2024 CK, TOTAL creatine kinase,total 270 U/L 32-182 above high normal Not Available [facility] ([facility]) [address] [place], [address], 07/05/2024 13:15:05 06/21/20 24 06/22/2024 ALDOL ASE aldolase 6.8 U/L 3.3-10 .3 Not Available [facility] ([facility]) [address] [place], [address], 07/05/2024 13:15:07 06/21/20 24 06/22/2024 THYRO ID ANTIB ODIES thyroid peroxidase (tpo) Ab 17 IU/mL 0-34 Not Available [facility] ([facility]) [address] [place], [address], 07/05/2024 13:15:08 06/21/20 24 06/22/2024 THYRO ID ANTIB ODIES thyroglobuli n antibody <1.0 IU/mL 0.0-0. 9 Thyro globu elvis Antib jose miguel measu red by Rajat Ferguson er Metho dolog y It shoul d be noted that the prese nce of thyro globu elvis antib odies may not be patho genic nor diagn ostic , espec ially at very low level s. The assay manuf actur er has found that four perce nt of indiv idual s witho ut evide nce of thyro id disea se or autoi mmuni ty will have posit tracy TgAb level s up to 4 IU/mL . Not Available [facility] ([facility]) [address] [place], [address], 07/05/2024 13:15:08 06/21/20 24 07/05/2024 ACHR BLOCK ING ABS, SERUM AChR blocking abs, serum 14 % 0-25 Negat tracy: 0 - 25 Borde rline : 26 - 30 Posit tracy: >30 Not Available [facility] ([facility]) [address] [place], [address], 07/05/2024 13:15:09 10/04/19 25 10/05/2024 LIPID PANEL cholesterol, total 247 mg/dL 100-19 9 above high normal Not Available [facility] ([facility]) [address] [place], [address], 10/05/2024 06:19:30 10/04/19 25 10/05/2024 LIPID PANEL triglyceride s 160 mg/dL 0-149 above high normal Not Available [facility] ([facility]) [address] [place], [address], 10/05/2024 06:19:30 10/04/19 25 10/05/2024 LIPID PANEL HDL cholesterol 63 mg/dL >39 Not Available [facility] ([facility]) [address] [place], [address], 10/05/2024 06:19:30 10/04/19 25 10/05/2024 LIPID PANEL VLDL cholesterol vladimir 29 mg/dL 5-40 Not Available [facility] ([facility]) [address] [place], [address], 10/05/2024 06:19:30 10/04/19 25 10/05/2024 LIPID PANEL LDL chol calc ([facility]) 155 mg/dL 0-99 above high normal Not Available [facility] ([facility]) [address] [place], [address], 10/05/2024 06:19:30 10/04/19 25 10/05/2024 COMP. METAB OLIC PANEL (14) glucose 124 mg/dL 70-99 above high normal Not Available [facility] ([facility]) [address] [place], [address], 10/05/2024 06:19:31 10/04/19 25 10/05/2024 COMP. METAB OLIC PANEL (14) BUN 13 mg/dL 8-27 Not Available [facility] ([facility]) [address] [place], [address], 10/05/2024 06:19:31 10/04/19 25 10/05/2024 COMP. METAB OLIC PANEL (14) creatinine 0.77 mg/dL 0.57-1 .00 Not Available [facility] ([facility]) [address] [place], [address], 10/05/2024 06:19:31 10/04/19 25 10/05/2024 COMP. METAB OLIC PANEL (14) eGFR 79 mL/mi n/1.7 3 >59 Not Available [facility] ([facility]) [address] [place], [address], 10/05/2024 06:19:31 10/04/19 25 10/05/2024 COMP. METAB OLIC PANEL (14) BUN/creatini ne ratio 17 12-28 Not Available [facility] ([facility]) [address] [place], [address], 10/05/2024 06:19:31 10/04/19 25 10/05/2024 COMP. METAB OLIC PANEL (14) sodium 140 mmol/ L 134-14 4 Not Available [facility] ([facility]) [address] [place], [address], 10/05/2024 06:19:31 10/04/19 25 10/05/2024 COMP. METAB OLIC PANEL (14) potassium 4.4 mmol/ L 3.5-5. 2 Not Available [facility] ([facility]) [address], [place], [address], 10/05/2024 06:19:31 10/04/19 25 10/05/2024 COMP. METAB OLIC PANEL (14) chloride 103 mmol/ L 96-106 Not Available [facility] ([facility]) [address], [place], [address], 10/05/2024 06:19:31 10/04/19 25 10/05/2024 COMP. METAB OLIC PANEL (14) carbon dioxide, total 24 mmol/ L 20-29 Not Available [facility] ([facility]) [address] [place], [address], 10/05/2024 06:19:31 10/04/19 25 10/05/2024 COMP. METAB OLIC PANEL (14) calcium 10.1 mg/dL 8.7-10 .3 Not Available [facility] ([facility]) [address] [place], [address], 10/05/2024 06:19:31 10/04/19 25 10/05/2024 COMP. METAB OLIC PANEL (14) protein, total 6.6 g/dL 6.0-8. 5 Not Available [facility] ([facility]) [address] [place], [address], 10/05/2024 06:19:31 10/04/19 25 10/05/2024 COMP. METAB OLIC PANEL (14) albumin 4.0 g/dL 3.8-4. 8 Not Available [facility] ([facility]) [address] [place], [address], 10/05/2024 06:19:31 02/04/20 25 10/05/2024 COMP. METAB OLIC PANEL (14) globulin, total 2.6 g/dL 1.5-4. 5 Not Available [facility] ([facility]) [address] [place], [address], 10/05/2024 06:19:31 10/04/19 25 10/05/2024 COMP. METAB OLIC PANEL (14) bilirubin, total 0.5 mg/dL 0.0-1. 2 Not Available [facility] ([facility]) [address] [place], [address], 10/05/2024 06:19:31 10/04/19 25 10/05/2024 COMP. METAB OLIC PANEL (14) alkaline phosphatase 70 IU/L 44-121 Not Available [facility] ([facility]) [address] [place], [address], 10/05/2024 06:19:31 10/04/19 25 10/05/2024 COMP. METAB OLIC PANEL (14) AST (SGOT) 17 IU/L 0-40 Not Available [facility] ([facility]) [address] [place], [address], 10/05/2024 06:19:31 10/04/19 25 10/05/2024 COMP. METAB OLIC PANEL (14) ALT (SGPT) 12 IU/L 0-32 Not Available [facility] ([facility]) [address] [place], [address], 10/05/2024 06:19:31 10/04/19 25 10/05/2024 HEMOG LOBIN A1C hemoglobin A1C 6.6 % 4.8-5. 6 above high normal Predi abete s: 5.7 - 6.4 Diabe stephanie: >6.4 Glyce em contr ol for adult s with diabe stephanie: <7.0 Not Available [facility] ([facility]) [address] [place], [address], 10/05/2024 06:19:32 01/28/20 24 01/28/2024 DEXA No observ ation record ed. [facility] [address], [place], [address], 02/02/2024 14:21:25 11/12/19 25 08/10/2024 elect romyo gram + nerve condu ction study No observ ation record ed. [facility] 2 [facility] [address], [place], [address], 11/23/2024 12:14:04 Result Notes None recorded. Problems Name Problem SNOMED Code Status Onset Date Resolution Date Notes Provider Name and Address Organization Details Recorded Time Muscle weakness 71462004 Active 2023 Meliton Major [place] null, [place] - [facility] 4 11:40:24 Fatigue 91065016 Active 2023 Meliton Major [place] [facility] 4 11:40:25 Pain of joint 62932081 Active 2023 Meliton Major [place] [facility] 4 11:40:26 Hyperlipidemia 72221693 Active 2023 Bar Rey MD Attn: George ruano,[address] [place], [address], [place] [facility] 4 12:08:18 Type 2 diabetes mellitus 94947632 Active 2023 Bar Rey MD Attn: George ruano,[address] [facility], [place], [address], [place] [facility] 4 12:08:29 Polyneuropathy 13612010 Active 2024 Xochilt Walsh LPN [place] [facility] 5 11:54:32 Menopausal syndrome 973812785 Active Mega Segov[place] [facility] 5 13:19:46 Cystocele 670486153 Active Mega Seg[place] [facility] 5 13:19:46 Bladder muscle dysfunction - overactive Active Mega Segovia null, [facility] 5 13:19:46 Problem Notes None recorded. Procedures Surgical History Date Name Laterality Status Provider Name and Address Organization Details Recorded Time 3 Most Recent Mammogram completed Willow Ramsey MA [facility] 06/12/2015 12:48:29 3 Date of Last Pap Smear completed Willow Ramsey MA [facility] 06/12/2015 12:48:29 4 lumpectomy of breast completed ELIANE Oconnor [facility] 11/16/2023 10:40:33 repair of hole of macula lutea completed ELIANE Oconnor [facility] 11/16/2023 10:40:11 Other completed Willow Ramsey MA [facility] 06/12/2015 12:51:27 Breast Biopsy completed Willow Ramsey MA [facility] 06/12/2015 12:52:02 Imaging Results Imaging Date Name Status LastModified by Organization Details LastModified Time 01/28/2024 DEXA completed [facility] [address] [place], [address], 02/02/2024 14:21:25 08/10/2024 electromyogram + nerve conduction study completed [facility] [address], [address], 11/23/2024 12:14:04 Procedure Notes None recorded. Medical Equipment None Reported. Allergies Allergen ID Allergen Name Allergen Category Reaction Reaction Severity Criticality Documentation Date Start Date Code Code System Note Provider Name and Address Organization Details Recorded Time 992925 Benadryl medicatio n other Not available Not available 11/16/202379011 7 RxNorm nervo usnes s, Restl ess legs ELIANE Oconnor [place] - [facility] 10:43:54 469795 Lexapro medicatio n Not available Not available Not available 11/16/2023 48680 1 RxNorm upset stoma ch, GERD Pao Virgenson, RMA null, [place] [facility] 4 10:43:28 134542 trazodone medicatio n other Not available Not available 11/16/2023 69242 RxNorm Tatiana Laird [place], [place] [facility] 5 12:21:36 893436 Belsomra medicatio n insomnia Not available Not available 11/16/2023 30137 05 RxNorm Pao Flores, RMA [place] [facility] 4 10:44:04 453379 metformin medicatio n diarrhea other Not available Not available Not available 11/16/2023 6809 RxNorm flatu renu Pao Flores RMA [place] [facility] 4 10:44:33 662966 Farxiga medicatio n Not available Not available Not available 11/16/2023 73101 72 RxNorm flatu lence , diarr hea, UTI Pao Mark, RMA [place] [facility] 4 10:44:50 996541 omeprazol e medicatio n other Not available high 06/21/20242018 7646 RxNorm SAUL [place] [facility] 5 12:21:24 967727 diphenhyd ramine medicatio n other Not available high 01/06/20252012 3498 RxNorm restl ess and fidge ty unrec ogniz ed react ion (text : Anxie ty, code: 56577 002) [facility] [place] - [facility] 5 12:21:14 056860 escitalop suresh Not available Not available Not available high 01/06/20252018 63893 8 RxNorm unrec ogniz ed react ion (text : Unkno wn, code: 70360 5006) [facility] Tatianaluis alberto Laird SAUL [place], [place] - [facility] 5 12:21:19 675377 pantopraz ole medicatio n Not available Not available high 01/06/20252018 36600 RxNorm unrec ogniz ed react ion (text : Unkno wn, code: 13899 5006) (from [facility]) SAUL [place], [place] - [facility] 5 12:21:28 300534 suvorexan t medicatio n other Not available [facility] 01/06/20252018 86591 99 RxNorm SAUL [place], [place] - [facility] 5 12:21:31 Medications Name Sig Start Date Stop Date [...] BY MOUTH TWICE DAILY FOR 5 DAYS 01/06 completed Not Available Not Available Not Available [...] No t Available Vitals Date Recorded Body weight Body mass index (BMI) Body height Heart rate Oxygen saturation Oxygen saturation in Arterial blood by Pulse oximetry Systolic blood pressure Diastolic blood pressure Provider Name and Address Organization Details Last Updated DateTime 4 66199.6 7 g 24.8 kg/m2 170.18 cm 80 /min 96 % 96 % 138 mm[Hg] 76 mm[Hg] ELIANE Oconnor [place] - [facility] 4 10:30:43 Date Recorded Body height Body mass index (BMI) Body weight Heart rate Oxygen saturation Oxygen saturation in Arterial blood by Pulse oximetry Systolic blood pressure Diastolic blood pressure Provider Name and Address Organization Details Last Updated DateTime 4 170.18 cm 23.4 kg/m2 04253.7 g 79 /min 97 % 97 % 142 mm[Hg] 70 mm[Hg] Mary Rowe [place] - [facility] 4 10:58:37 Date Recorded Body height Body mass index (BMI) Body weight Heart rate Oxygen saturation Oxygen saturation in Arterial blood by Pulse oximetry Systolic blood pressure Diastolic blood pressure Provider Name and Address Organization Details Last Updated DateTime 4 170.18 cm 23.5 kg/m2 40729.9 3 g 83 /min 98 % 98 % 130 mm[Hg] 68 mm[Hg] Gayla Bateman [place] - [facility] 4 11:44:46 Date Recorded Body height Body mass index (BMI) Body weight Heart rate Oxygen saturation Oxygen saturation in Arterial blood by Pulse oximetry Systolic blood pressure Diastolic blood pressure Provider Name and Address Organization Details Last Updated DateTime 5 170.18 cm 24.1 kg/m2 77104.5 1 g 97 /min 97 % 97 % 128 mm[Hg] 70 mm[Hg] Gayla Bateman MA [facility] 5 11:03:58 Date Recorded Body height Body mass index (BMI) Body weight Heart rate Oxygen saturation Oxygen saturation in Arterial blood by Pulse oximetry Systolic blood pressure Diastolic blood pressure Provider Name and Address Organization Details Last Updated DateTime 5 170.18 cm 24.4 kg/m2 16408.6 9 g 100 /min 97 % 97 % 120 mm[Hg] 62 mm[Hg] Tatiana Laird MA [facility] 5 12:20:56 Social History Question Answer Notes LastModified by Organizat ion Details LastModified Time Tobacco Smoking Status Never Smoker Willow Ramsey MA [facility] [place], [facility] 06/12/2015 12:57:46 Do You Have An Advance [...] Date Of Your Most Recent Tobacco Screening? 01/06/2025 Non Smoker gwardma Information not available 01/06/2025 How Many Children Do You Have? 2 [...] Anxious, Or Unable To Sleep At Night)? [id number] Information not available 06/21/2024 Do You Use [...] Details LastModified Time Father Amyotrophic lateral sclerosis [facility] Not available 06/12 13:20:38 [facility] 05/31 13:20:38 Sister Diabetes mellitus [facility] Not available 06/12 13:20:38 Brother Parkinson's disease [facility] Not available 06/12 13:20:38 Maternal Aunt [facility] Not available 06/12 13:20:38 Medical History Condition Response Heart Problems N Other Y Breast Cancer N Thyroid Problems N Kidney or Bladder Problems N Lung Disease N Depression N GI Problems N Acne N Breast Problem N Eating Disorder N Anemia N Anesthesia Complications N Headaches/Migraines N Ovarian Cancer N Diabetes Y Anxiety Disorder N Blood Transfusions N Arthritis N Polyps [...] Details Recorded Time zoster recombinant 9 completed Meliton Major [place], [place] [facility] 06/21/2024 11:51:53 Influenza, high-dose, quadrivalent, PF 1 completed Meliton [place] [facility] 06/21/2024 11:51:53 Influenza, high-dose, quadrivalent, PF 0 completed Meliton [place] [facility] 06/21/2024 11:51:53 COVID-19, mRNA, [...] 11:51:53 Influenza, high-dose, trivalent, PF 5 completed Bar Rey MD Attn: Accounting,[address] [place], [address], [place] [facility] 10/02/2024 18:37:40 Past Encounters Encounter ID Performer Location Encounter Start Date Encounter Closed Date Diagnosis/Indication Diagnosis SNOMED-CT Code Diagnosis ICD10 Code Diagnosis Note [id number] MD Andriy Sepulveda ([employer]) [address] [place] [id number] 06/12/2015 11:30:17 06/12/2015 13:22:13 Menopausal syndrome 809399333 N95.9 Screening for malignant neoplasm of breast 125788221 Z12.39 Cystocele 461690197 N81. 10 Bladder mu scle dysfunction - overactive 664548981 N32.81 [id number] MD Andriy Morales (Adult Med) [address] [place] [phone] 11/16/2023 10:10:26 11/16/2023 11:24:09 Type 2 diabetes mellitus 14407693 E11.9 Hyperlipidemia 20966150 E78.5 Long-term drug therapy 367826127 Z79.899 Dysuria 84220799 R30.0 [id number] MD Andriy Morales (Adult Med) [address] [place] [phone] 05/10/2024 10:27:13 05/10/2024 11:41:17 Muscle weakness 11106968 M62.81 Fatigue 82748397 R53.83 Pain of joint 26078991 M 25.50 Hyperlipidemia 45411427 E78.5 [id number] Bar Rey MD Andriy (Adult Med) [address] [place] [phone] 06/21/2024 11:02:08 06/21/2024 12:48:57 Muscle weakness 15004461 M62.81 Hyperlipidemia 07782853 E78.5 Type 2 tej betes mellitus 33392050 E11.9 [id number] Bar Rey MD [facility] (Adult Med) [address] [place] [phone] 0 09/27/2024 10:04:52 09/27/2024 12:02:30 Body mass index 20-24 - normal 748629089 Z68.24 Administra tion of influenza vaccine 29445588 Z23 Hyperlipidemia 56707341 E78.5 Type 2 tej betes mellitus 14155683 E11.9 [id number] Bar Rey MD [facility] (Adult Med) [address] [place] [id number] 01/06/2025 11:17:06 01/06/2025 13:07:23 Normal weight 97395318 Z68.24 Overweight 587270444 E66 .3 Health Concerns Section Related Observation LastModified by Organization Detai ls LastModified Time None Recorded Concern Status LastModified by Organization Details LastModified Time None Recorded Advance Directives Directive Y: Payers Encounter Date Sequence Insurance Name Policy Number Policy Metcalf Covered Member ID Metcalf Member ID Guarantor Name 11/16/2023 1 [facility] (MEDICARE REPLACEMENT/A DVANTAGE - HMO) [id number] Mariia Riley [id number] Mariia Riley 05/10/2024 1 [facility] (MEDICARE REPLACEMENT/A DVANTAGE - HMO) [id number] Mariia Riley [id number] Mariia Riley 06/21/2024 1 [facility] (MEDICARE REPLACEMENT/A DVANTAGE - HMO) [id number] Mariia Riley [id number] Mariia Riley 09/27/2024 1 [facility] (MEDICARE REPLACEMENT/A DVANTAGE - HMO) [id number] Mariia Riley [id number] Mariia Riley Notes Date Note Type Note Provider Name and Address Organization Details Recorded Time 11/16/2023 text/html Diabetes does no t take sugars regularly but no polyphagia or polydipsia hyperlipidemia needs to be checked she been having some dysuria for about a week with frequency and urgency no back pain no nausea vomiting fever or chills Bar Rey MD Attn: Accounting, [address] [place], [address], [facility] - [facility] 11/29/2023 16:34:47 05/10/2024 text/html at times she fee ls like her muscles are weak. A little bit of fatigue as well. She has had some nonspecific joint pain as well. Bar Rey MD Attn: Accounting, [address] [place], [address], [facility] - [facility] 05/29/2024 12:08:37 06/21/2024 text/html just says that s he feels weak we stopped the atorvastatin maybe she had a little bit of relief not sure. She does not have any problems holding arms above her head for long periods of time Bar Rey MD Attn: Accounting, [address] [place], [address], [facility] - [facility] 07/03/2024 12:09:41 09/27/2024 text/html still feels weak and has ill described episodes where she just has trouble walking she was seen neurology in the past Bar Rey MD Attn: Accounting, [address] [place], [address], [facility] - [facility] 10/02/2024 18:43:27 OBGyn Episode Ob Episode Information Episode Created Date Number of Fetuses Patient Bloodtype Patient rh Status Prepregnancy Weight lbs Domestic Partner Domestic Partner Phone Father Name Community Artist Status 06/12/20 15 1 CLOSED Fetus Data First Name Last Name Admitted to NICU Weight (g) Sex Living Outcome Pediatric Complications Fetus ID Race Codes Race Delivery Type 3515.33 8 F Full Term [id number] Vaginal Joce Calculation Initial Joce Date Initial [...] Domestic Partner Domestic Partner Phone Father Name Community Artist Status 06/12/20 15 1 CLOSED Fetus Data First Name Last Name Admitted to NICU Weight (g) Sex Living Outcome Pediatric Complications Fetus ID Race Codes Race Delivery Type 3940.58 05 M Full Term [id number] Vaginal Joce Calculation Initial Joce Date Initial [...]
--- OUTSIDE RECORDS SUMMARY | 2025-01-07 07:08 | XMS_ITS | Data Portability ---
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 Lab urinalysis, microscopic 2022 023 [email or web address] [facility] (Lab), [address] [place], [address], 4 18:30:19 HbA1c (hemoglobin A1c), blood 2022 023 [email or web address] [facility] (Lab), [address] [place], [address], 4 18:30:19 CBC w/ auto diff 2022 023 [email or web address] [facility] (Lab), [address] [place], [address], 3 16:52:12 T3, free, serum or plasma 2022 023 [email or web address] [facility] (Lab), [address] [place], [address], 3 16:52:12 T4, free, serum 2022 023 [email or web address] [facility] (Lab), [address] [place], [address], 3 16:52:12 TSH, serum or plasma [address] (Lab), [address] [place], [address], 3 16:52:12 lipid panel, serum [address] (Lab), [address] [place], [address], 3 16:52:12 CMP, serum or plasma [address] (Lab), [address] [place], [address], 3 16:52:12 Referral None recorded. Procedures None recorded. Surgeries None recorded. Imaging XR, wrist, 3 or more view 2023 024 [facility] [place], [address], [place], [address], 4 14:08:14 XR, wrist, 3 or more view 2023 024 [facility] [place], [address], [place], [address], 4 00:17:19 Medication Orders None recorded. Patient TargetsNo targets recorded. Patient InstructionsNo instructions recorded. Reason for Referral None Reported. Results Created Date Observation Date Name Description Value Unit Range Abnormal Flag Note LastModifiedBy Organization Detail LastModifiedTime 05/18/20 23 05/18/2023 URINE MICRO SCOPI C EXAM/ IRIS white blood cells PACKED /i??h pfi?? 0-8 abnormal Not Available [facility] (Lab) [address] [place], [address], 05/18/2023 14:42:21 05/18/20 23 05/18/2023 URINE MICRO SCOPI C EXAM/ IRIS white blood cell clumps MANY /i??h pfi?? none seen- abnormal Not Available [facility] (Lab) [address] [place], [address], 05/18/2023 14:42:21 05/18/20 23 05/18/2023 URINE MICRO SCOPI C EXAM/ IRIS red blood cells 0-4 /i??h pfi?? 0-4 Not Available [facility] (Lab) [address] [place], [address], 05/18/2023 14:42:21 05/18/20 23 05/18/2023 URINE MICRO SCOPI C EXAM/ IRIS bacteria FEW abnormal Not Available [facility] (Lab) [address] [place], [address], 05/18/2023 14:42:21 05/18/20 23 05/18/2023 URINE MICRO SCOPI C EXAM/ IRIS mucous OCCASI ONAL /i??l pfi?? abnormal Not Available [facility] (Lab) [address] [place], [address], 05/18/2023 14:42:21 05/18/20 23 05/18/2023 URINE MICRO SCOPI C EXAM/ IRIS squamous epithelial FEW /i??l pfi?? abnormal Not Available [facility] (Lab) [address] [place], [address], 05/18/2023 14:42:21 05/18/20 23 05/18/2023 URINE MICRO SCOPI C EXAM/ IRIS amorphous crystal MODERA TE /i??h pfi?? abnormal Not Available [facility] (Lab) [address] [place], [address], 05/18/2023 14:42:21 05/18/20 23 05/18/2023 CBC/C OMPLE TE BLD COUNT W/DIF F white blood cells 6.1 x10'3 /uL 4.2-10 .8 Not Available [facility] (Lab) [address] [place], [address], 05/18/2023 15:28:27 05/18/20 23 05/18/2023 CBC/C OMPLE TE BLD COUNT W/DIF F red blood cells 4.72 x10'6 /uL 3.80-5 .20 Not Available [facility] (Lab) [address] [place], [address], 05/18/2023 15:28:27 05/18/20 23 05/18/2023 CBC/C OMPLE TE BLD COUNT W/DIF F hemoglobin 13.5 g/dL 12.0-1 5.6 Not Available [facility] (Lab) [address] [place], [address], 05/18/2023 15:28:27 05/18/20 23 05/18/2023 CBC/C OMPLE TE BLD COUNT W/DIF F hematocrit 41.7 % 35.7-4 5.7 Not Available [facility] (Lab) [address] [place], [address], 05/18/2023 15:28:27 05/18/20 23 05/18/2023 CBC/C OMPLE TE BLD COUNT W/DIF F mean red cell volume 88.3 fL 82.0-9 9.0 Not Available [facility] (Lab) [address] [place], [address], 05/18/2023 15:28:27 05/18/20 23 05/18/2023 CBC/C OMPLE TE BLD COUNT W/DIF F mean red cell hemoglobin 28.6 pg 27.0-3 3.0 Not Available [facility] (Lab) [address] [place], [address], 05/18/2023 15:28:27 05/18/20 23 05/18/2023 CBC/C OMPLE TE BLD COUNT W/DIF F mean RBC HGB concentratio n 32.4 g/dL 31.0-3 6.0 Not Available [facility] (Lab) [address] [place], [address], 05/18/2023 15:28:27 05/18/20 23 05/18/2023 CBC/C OMPLE TE BLD COUNT W/DIF F red cell distribution width 12.7 % 11.8-1 5.5 Not Available [facility] (Lab) [address] [place], [address], 05/18/2023 15:28:27 05/18/20 23 05/18/2023 CBC/C OMPLE TE BLD COUNT W/DIF F platelets 171 x10'3 /uL 150-40 0 Not Available [facility] (Lab) [address] [place], [address], 05/18/2023 15:28:27 05/18/20 23 05/18/2023 CBC/C OMPLE TE BLD COUNT W/DIF F mean platelet volume 11.3 fL 9.0-12 .4 Not Available [facility] (Lab) [address] [place], [address], 05/18/2023 15:28:27 05/18/20 23 05/18/2023 CBC/C OMPLE TE BLD COUNT W/DIF F neutrophils 66.6 % 39.0-7 2.0 Not Available [facility] (Lab) [address] [place], [address], 05/18/2023 15:28:27 05/18/20 23 05/18/2023 CBC/C OMPLE TE BLD COUNT W/DIF F lymphocytes 23.9 % 16.0-4 7.0 Not Available [facility] (Lab) [address] [place], [address], 05/18/2023 15:28:27 05/18/2005/18/2023 CBC/C OMPLE TE BLD COUNT W/DIF F monocytes 6.9 % 5.0-12 .0 Not Available [facility] (Lab) [address] [place], [address], 05/18/2023 15:28:27 05/18/20 23 05/18/2023 CBC/C OMPLE TE BLD COUNT W/DIF F eosinophils 1.5 % 1.0-7. 0 Not Available [facility] (Lab) [address] [place], [address], 05/18/2023 15:28:27 05/18/20 23 05/18/2023 CBC/C OMPLE TE BLD COUNT W/DIF F basophils 0.8 % 0.0-2. 0 Not Available [facility] (Lab) [address] [place], [address], 05/18/2023 15:28:27 05/18/20 23 05/18/2023 CBC/C OMPLE TE BLD COUNT W/DIF F immature granulocytes 0.3 % 0.00-0 .50 Not Available [facility] (Lab) [address] [place], [address], 05/18/2023 15:28:27 05/18/20 23 05/18/2023 CBC/C OMPLE TE BLD COUNT W/DIF F neutrophils, absolute count 4.07 x10'3 /uL 1.5-8. 0 Not Available [facility] (Lab) [address] [place], [address], 05/18/2023 15:28:27 05/18/20 23 05/18/2023 CBC/C OMPLE TE BLD COUNT W/DIF F lymphocytes, absolute count 1.46 x10'3 /uL 1.07-3 .43 Not Available [facility] (Lab) [address] [place], [address], 05/18/2023 15:28:27 05/18/20 23 05/18/2023 CBC/C OMPLE TE BLD COUNT W/DIF F monocytes, absolute count 0.42 x10'3 /uL 0.29-0 .99 Not Available [facility] (Lab) [address] [place], [address], 05/18/2023 15:28:27 05/18/20 23 05/18/2023 CBC/C OMPLE TE BLD COUNT W/DIF F eosinophils, absolute count 0.09 x10'3 /uL 0.02-0 .53 Not Available [facility] (Lab) [address] [place], [address], 05/18/2023 15:28:27 05/18/20 23 05/18/2023 CBC/C OMPLE TE BLD COUNT W/DIF F basophils, absolute count 0.05 x10'3 /uL 0.01-0 .08 Not Available [facility] (Lab) [address] [place], [address], 05/18/2023 15:28:27 05/18/20 23 05/18/2023 CBC/C OMPLE TE BLD COUNT W/DIF F immature granulocytes ,absolute 0.02 x10'3 /uL 0.00-0 .05 Not Available [facility] (Lab) [address] [place], [address], 05/18/2023 15:28:27 05/18/20 23 05/18/2023 CBC/C OMPLE TE BLD COUNT W/DIF F nucleated red blood cells 0.0 % -0 Not Available [facility] (Lab) [address] [place], [address], 05/18/2023 15:28:27 05/18/20 23 05/18/2023 CBC/C OMPLE TE BLD COUNT W/DIF F NRBC# 0.00 x10'3 /uL Not Available [facility] (Lab) [address] [place], [address], 05/18/2023 15:28:27 05/18/20 23 05/18/2023 T3 FREE free T3 3.2 pg/mL 2.77-5 .27 Not Available [facility] (Lab) [address] [place], [address], 05/18/2023 20:09:30 05/18/20 23 05/18/2023 T4 FREE free T4 1.09 NG/dL 0.78-2 .19 Not Available [facility] (Lab) [address] [place], [address], 05/18/2023 18:12:38 05/18/2005/18/2023 TSH thyroid-stim ulating hormone 0.644 uIU/m L 0.465- 4.680 Not Available [facility] (Lab) [address] [place], [address], 05/18/2023 16:00:40 05/18/20 23 05/18/2023 HEMOG LOBIN A1C HA1C 6.6 % 4.0-6. 0 high Diabe stephanie Scree boogie Crite ayush: <5.7% Consi stent with absen ce of diabe stephanie 5.7-6 .4% Consi stent with incre ased risk for diabe stephanie (pred iabet es) >OR=6 .5% Consi stent with diabe stephanie REFER ENCE: Diabe stephanie Care 2016, 39(Brewer ppl.1 ):s13 -s22 Not Available [facility] (Lab) [address] [place], [address], 05/18/2023 15:39:40 05/18/20 23 05/18/2023 LIPID PANEL cholesterol 166 mg/dL 140-19 9 NIH BALBIR NSUS RECOM MENDA TION FOR BHUPINDER STERO L: ADULT CHILD LOW RISK: <200 <170 BORDE RLINE : <200- 239 ----- HIGH RISK: >240 >200 Not Available [facility] (Lab) [address] [place], [address], 05/18/2023 16:05:58 05/18/20 23 05/18/2023 LIPID PANEL triglyceride s 198 mg/dL 0-150 high NIH BALBIR NSUS REPOR T RECOM MENDA TION FOR TRIGL YCERI CLARE: ADULT CHILD LOW RISK: <150 ----- BODER LINE: 150-1 99 ----- HIGH RISK: >200 ----- Not Available [facility] (Lab) [address] [place], [address], 05/18/2023 16:05:58 05/18/20 23 05/18/2023 LIPID PANEL HDL cholesterol 61 mg/dL 40- Not Available [facility] (Lab) [address] [place], [address], 05/18/2023 16:05:58 05/18/20 23 05/18/2023 LIPID PANEL [...] WILL NOT BE REPOR LINDY. Not Available [facility] (Lab) [address] [place], [address], 05/18/2023 16:05:58 05/18/20 23 05/18/2023 COMPR EHENS ROSA ELENA METAB OLIC PANEL sodium 138 mmol/ L 137-14 5 Not Available [facility] (Lab) [address] [place], [address], 05/18/2023 16:06:09 05/18/20 23 05/18/2023 COMPR EHENS ROSA ELENA METAB OLIC PANEL potassium 4.6 mmol/ L 3.5-5. 1 Not Available [facility] (Lab) [address] [place], [address], 05/18/2023 16:06:09 05/18/20 23 05/18/2023 COMPR EHENS ROSA ELENA METAB OLIC PANEL chloride 102 mmol/ L 98-107 Not Available [facility] (Lab) [address] [place], [address], 05/18/2023 16:06:09 05/18/20 23 05/18/2023 COMPR EHENS ROSA ELENA METAB OLIC PANEL carbon dioxide 29 mmol/ L 22-30 Not Available [facility] (Lab) [address] [place], [address], 05/18/2023 16:06:09 05/18/20 23 05/18/2023 COMPR EHENS ROSA ELENA METAB OLIC PANEL anion gap 11.6 mmol/ L 14-22 low Not Available [facility] (Lab) [address] [place], [address], 05/18/2023 16:06:09 05/18/20 23 05/18/2023 COMPR EHENS ROSA ELENA METAB OLIC PANEL glucose 100 mg/dL 70-99 high Not Available [facility] (Lab) [address] [place], [address], 05/18/2023 16:06:09 05/18/20 23 05/18/2023 COMPR EHENS ROSA ELENA METAB OLIC PANEL BUN 9 mg/dL 8-19 Not Available [facility] (Lab) [address] [place], [address], 05/18/2023 16:06:09 05/18/20 23 05/18/2023 COMPR EHENS ROSA ELENA METAB OLIC PANEL creatinine 0.68 mg/dL 0.66-1 .25 Not Available [facility] (Lab) [address] [place], [address], 05/18/2023 16:06:09 05/18/20 23 05/18/2023 COMPR EHENS ROSA ELENA METAB OLIC PANEL GFR >60 Refer ence Range : Canones ge GFR Healt hy Adult : >60 [...] calcu lator is avail able on the [facility] websi te: [email or web address] :[email or web address] [email or web address] rg/pr ofess ional s/kdo qi/gf r_cal culat or Not Available [facility] (Lab) [address] [place], [address], 05/18/2023 16:06:09 05/18/2005/18/2023 COMPR EHENS ROSA ELENA METAB OLIC PANEL alkaline phosphatase 92 U/L 38-126 Not Available [facility] (Lab) [address] [place], [address], 05/18/2023 16:06:09 05/18/20 23 05/18/2023 COMPR EHENS ROSA ELENA METAB OLIC PANEL alanine aminotransfe rase 30 U/L 0-35 Not Available [facility] (Lab) [address] [place], [address], 05/18/2023 16:06:09 05/18/20 23 05/18/2023 COMPR EHENS ROSA ELENA METAB OLIC PANEL aspartate aminotransfe rase 32 U/L 15-37 Not Available [facility] (Lab) [address] [place], [address], 05/18/2023 16:06:09 05/18/20 23 05/18/2023 COMPR EHENS ROSA ELENA METAB OLIC PANEL bilirubin, total 0.60 mg/dL 0.20-1 .30 Not Available [facility] (Lab) [address] [place], [address], 05/18/2023 16:06:09 05/18/20 23 05/18/2023 COMPR EHENS ROSA ELENA METAB OLIC PANEL calcium 10.8 mg/dL 8.4-10 .2 high Not Available [facility] (Lab) [address] [place], [address], 05/18/2023 16:06:09 05/18/20 23 05/18/2023 COMPR EHENS ROSA ELENA METAB OLIC PANEL total protein 7.0 g/dL 6.3-8. 2 Not Available [facility] (Lab) [address] [place], [address], 05/18/2023 16:06:09 05/18/20 23 05/18/2023 COMPR EHENS ROSA ELENA METAB OLIC PANEL albumin 4.3 g/dL 3.0-4. 4 Not Available [facility] (Lab) [address] [place], [address], 05/18/2023 16:06:09 05/18/20 23 05/18/2023 COMPR EHENS ROSA ELENA METAB OLIC PANEL globulin 2.7 g/dL 2.6-4. 2 Not Available [facility] (Lab) [address] [place], [address], 05/18/2023 16:06:09 05/18/20 23 05/18/2023 COMPR EHENS ROSA ELENA METAB OLIC PANEL A/G ratio 1.6 ratio 1.0-2. 0 Not Available [facility] (Lab) [address] [place], [address], 05/18/2023 16:06:09 07/07/20 23 07/07/2023 MAMMO , scree boogie, digit al, bilat eral [facility] [address] [place] [address] [phone] Patien t Name: TOBI WELLS Access ion #: [id number] Sex: F : 1944 6 Dictat [...] at 2022 10:52: 06 AM Page 1 [facility] [address] [place], [address], 09/30/2023 11:09:21 12/21/19 24 12/20/2023 XR, wrist , 3 or more view No observ ation record ed. [email or web address] Not Available 11/30 14:30:11 12/29/19 24 12/29/2023 RF, elsie nce No observ ation record ed. [email or web address] [facility] [address] [place], [address], 12/30/2023 07:05:11 01/27/20 XR, wrist , 3 or more view No observ ation record ed. [address] [place] [address], [place], [address], 01/27/2024 11:10:53 01/28/20 24 01/28/2024 DEXA, axial skele ton [facility] [address] [place] [address] [phone] Patien t Name: DIOGENES WaltTOBI Access ion #: [id number] Sex: F : 1944 5 Dictat ed By: Yon solano Attend ing Physic [facility]ae[facility]: YON REY Exam Date: 2023 09:39 AM Exam Name: XR DEXA-H IPS PELVIS SPINE Admitt ing Diagno sis(es ): CLINIC AL HISTOR Y: Postme nopaus al screen ing for osteop orosis . TECHNI QUE: The study was perfor med using a [employer] Unit. Lumbar spine and proxim al femora [...] 2023 10:51: 38 AM Page 1 [email or web address] [facility] [address] [place], [address], 03/15/2024 10:15:56 02/10/20 24 XR, wrist , 3 or more view No observ ation record ed. [email or web address] [facility] [place] [address], [place], [address], 02/10/2024 09:41:26 Result Notes None recorded. Problems Name Problem SNOMED Code Status Onset Date Resolution Date Notes Provider Name and Address Organization Details Recorded Time Closed trimalleol ar fracture of left ankle 6844189505412 9102 Active 2021 Not Available [facility] 11/09/202 3 05:44:44 Mammograph y abnormal 091557837 Active 2021 Not Available [facility] 3 05:44:44 Insomnia 982316996 Active 2018 Not Available [facility] 3 05:44:44 Adhesive capsulitis of left shoulder 5565149635828 07 Active 2019 Not Available [facility] 3 05:44:44 Type 2 diabetes mellitus without complicati on 209465011 Active 2021 Not Available [facility] 3 05:44:44 Vertigo 773911128 Active 2021 Not Available [facility] 3 05:44:44 Dizziness 699513723 Active 2021 Not Available [facility] 3 05:44:44 Hyperlipid emia 19866120 Active 2017 Not Available [facility] 3 05:44:44 Closed trimalleol ar fracture 3252999 Active 2021 Not Available [facility] 3 05:44:45 Polyp of colon 84728427 Active 2021 Not Available [facility] 3 05:44:45 Hyperglyce pacheco 13422897 Active 2021 Not Available [facility] 3 05:44:45 Fatigue 47385728 Active 2022 Not Available [facility] 3 05:44:45 Diabetes mellitus 44198752 Active 2022 Not Available [facility] 3 05:44:45 Type 2 diabetes mellitus 75407306 Active 2022 Not Available [facility] 3 05:44:44 Acute urinary tract infection 293124297 Active 2022 Not Available [facility] 3 05:44:44 Essential hypertensi on 94147996 Active 2022 Not Available [facility] 3 05:44:45 Dysuria 59109800 Active 2022 Not Available [facility] 3 05:44:44 Pain of right wrist 1565207915812 00 Active 2023 ELIANE [facility] 4 09:26:09 Problem Notes None recorded. Procedures Surgical History Date Name Laterality Status Provider Name and Address Organization Details Recorded Time 4 open reduction of fracture with internal fixation completed Jessica ELIANE Devine [facility] 02/08/2024 08:02:13 2 Ankle Surgery completed Not Available [facility] 2022 05:58:17 2 Most Recent Bone Density completed Not Available [facility] 10/29/2022 05:58:13 2 Ankle Surgery completed Not Available [facility] 2022 05:58:17 Eye Surgery completed Not Available [facility] 10/29/2022 05:58:17 Imaging Results Imaging Date Name Status LastModified by Organiz ation Details LastModified Time 07/07/2023 MAMMO, screening, digital, bilateral completed [email or web address] [facility] [address] [place], [address], 09/30/2023 11:09:21 12/20/2023 XR, wrist, 3 or more view completed [email or web address] Information not available 12/21/2023 14:30:11 12/29/2023 RF, guidance completed [email or web address] [facility] [address] [place], [address], 12/30/2023 07:05:11 01/27/2024 XR, wrist, 3 or more view completed [email or web address] [facility] [place] [address], [place], [address], 01/27/2024 11:10:53 01/28/2024 DEXA, axial skeleton completed [email or web address] [facility] [address] [place], [address], 03/15/2024 10:15:56 02/10/2024 XR, wrist, 3 or more view completed [email or web address] [facility] [place] [address], [place], [address], 02/10/2024 09:41:26 Procedure Notes None recorded. Medical Equipment None Reported. Allergies Allergen ID Allergen Name Allergen Category Reaction Reaction Severity Criticality Documentation Date Start Date Code Code System Note Provider Name and Address Organization Details Recorded Time 53561 trazodone medicatio n other Not available Not available 10/29/2022 92535 RxNorm restl ess legs Not Available [facility] 3 06:17:42 84401 omeprazol e medicatio n Not available Not available Not available 10/29/2022 7646 RxNorm worse dned acid reflu x Not Available [facility] 3 06:17:42 04163 Lexapro medicatio n Not available Not available Not available 10/29/2022 64375 1 RxNorm GI upset Not Available [facility] 3 06:17:42 27921 Benadryl medicatio n other Not available Not available 10/29/2022 79420 7 RxNorm hyper activ ity Not Available [facility] 3 06:17:42 66101 Belsomra medicatio n insomnia Not available Not available 10/29/2022 17452 05 RxNorm Not Available [facility] 3 06:17:43 Medications Name Sig Start Date [...] administ ered by the provider 12/29 completed [facility]: [id number] 4-20 Not Available Not Available Not [...] administ ered by the provider 12/29 completed [facility]: [phone] 6-17 Not Available Not Available Not [...] Not Available Not Available Not Available [employer] 09/22 completed Not Available Not [...] Updated DateTime 3 170.18 cm 24.6 kg/m2 39460 g 98.2 [degF] 84 /min 124 mm[Hg] 72 mm[Hg] ELIANE [place] [employer] [facility] 10:52:31 Date Recorded Body height Body mass index (BMI) Body weight Pain severity - 0-10 verbal numeric rating [Score] - Reported Provider Name and Address Organization Details Last Updated DateTime 12/22/2023 170.18 cm 24.6 kg/m2 62430 g 6 Jessica Devine [facility] [employer] [facility] 12/22/2023 09:25:07 Date Recorded Body height Body mass index (BMI) Body weight Pain severity - 0-10 verbal numeric rating [Score] - Reported Provider Name and Address Organization Details Last Updated DateTime 01/13/2024 170.18 cm 24.6 kg/m2 10736 g 3 Jessica Devine [facility] [employer] [facility] 01/13/2024 10:09:56 Date Recorded Body height Body mass index (BMI) Body weight Pain severity - 0-10 verbal numeric rating [Score] - Reported Provider Name and Address Organization Details Last Updated DateTime 01/27/2024 170.18 cm 24.3 kg/m2 54031.82 g 3 Jessica Devine [facility] [employer] [facility] 01/27/2024 11:10:11 Date Recorded Body height Body mass index (BMI) Body weight Pain severity - 0-10 verbal numeric rating [Score] - Reported Provider Name and Address Organization Details Last Updated DateTime 02/10/2024 170.18 cm 24.3 kg/m2 01164.82 g 1 Jessica Devine [facility] [employer] [facility] 02/10/2024 09:40:38 Social History Question Answer Notes LastModified by Organization Details LastModified Time Tobacco Smoking Status Never Smoker Not Available [facility] 10/29/2022 05:57:35 Do You Have An Advance Directive? Yes [id number] [id number] Information not available 10/29/2022 What Is Your Level Of Alcohol Consumption? None MIGRATION.0301 [id number] Information not available 10/29/2022 Are You Blind Or Do You Have Difficulty Seeing? Yes Wears Glasses MIGRATION.0301 [id number] Information not available 10/29/2022 What Is Your Level Of Caffeine Consumption? Moderate MIGRATION.0301 [id number] Information not available 10/29/2022 How Much Tobacco Do You Chew? None MIGRATION.0301 [id number] Information not available 10/29/2022 In The 14 Days Before Symptom Onset, Have You Had Close Contact With A Laboratory-confi rmed COVID-19 While That Case Was Ill? No MIGRATION.030 [id number] Information not available 10/29/2022 In The 14 Days Before Symptom Onset, Have You Had Close Contact With A Person Who Is Under Investigation For COVID-19 While That Person Was Ill? No MIGRATION.030 [id number] Information not available 10/29/2022 Are You Deaf Or Do You Have Serious Difficulty Hearing? No MIGRATION.0301 [id number] Information not available 10/29/2022 What Type Of Diet Are You Following? REGULAR MIGRATION.030 [id number] Information not available 10/29/2022 Which Illicit Or Recreational Drugs Have You Used? None MIGRATION.030 [id number] Information not available 10/29/2022 Do You Or Have You Ever Used E-cigarettes Or Vape? Never Used Electronic Cigarettes MIGRATION.030 [id number] Information not available 10/29/2022 What Is The Highest Grade Or Level Of School You Have Completed Or The Highest Degree You Have Received? [id number] MIGRATION.030 [id number] Information not available 10/29/2022 What Is Your Occupation? Retired MIGRATION.030 [id number] Information not available 10/29/2022 Have There Been Any Changes To Your Family Or Social Situation? No MIGRATION.030 610114 Information not available 10/29/2022 What Is The Fluoride Status Of Your Home? Unknown MIGRATION.030 [id number] Information not available 10/29/2022 Are There Any Guns Present In Your Home? No MIGRATION.030 [id number] Information not available 10/29/2022 Do You Use Insect Repellent Routinely? No MIGRATION.0301 [id number] Information not available 10/29/2022 Where Do You Live? [place] MIGRATION.030 [id number] Information not available 10/29/2022 Do You Have A Medical Power Of Timber Management Technician? Yes MIGRATION.030 [id number] Information not available 10/29/2022 What Was The Date Of Your Most Recent Tobacco Screening? 05/18/2023 [email or web address] Information not available 05/18/2023 Do You Have Any Pets? Yes MIGRATION.0301 [id number] Information not available 10/29/2022 What Is Your Relationship Status? MIGRATION.0301 [id number] Information not available 10/29/2022 Do You Use Your Seat Belt Or Car Seat Routinely? Yes MIGRATION.0301 [id number] Information not available 10/29/2022 Do You Have Smoke And Carbon Monoxide Detectors In Your Home? Yes MIGRATION.0301 [id number] Information not available 10/29/2022 Are You Passively Exposed To Smoke? No MIGRATION.0301 [id number] Information not available 10/29/2022 Do You Or Have You Ever Used Smokeless Tobacco? Never Used Smokeless Tobacco MIGRATION.0301 [id number] Information not available 10/29/2022 Are There Any Smokers In Your House? No MIGRATION.0301 196578 Information not available 10/29/2022 How Much Tobacco Do You Smoke? No MIGRATION.0301 [id number] Information not available 10/29/2022 What Types Of Sporting Activities Do You Participate In? None MIGRATION.0301 502001 Information not available 10/29/2022 Do You Feel Stressed (tense, Restless, Nervous, Or Anxious, Or Unable To Sleep At Night)? [id number] MIGRATION.0301 200992 Information not available 10/29/2022 Do You Use Any Illicit Or Recreational Drugs? No MIGRATION.0301 144089 Information not available 10/29/2022 Do You Use Sunscreen Routinely? No MIGRATION.0301 898291 Information not available 10/29/2022 Has Tobacco Cessation Counseling Been Provided? No Not Needed-ne ve Smoked MIGRATION.0301 641952 Information not available 10/29/2022 How Many Years Have You Smoked Tobacco? 0 MIGRATION.0301 670319 Information not available 10/29/2022 Have You Recently Traveled Abroad? No MIGRATION.0301 950581 Information not available 10/29/2022 Do You Have Any Dietary Restrictions? No MIGRATION.0301 734508 Information not available 10/29/2022 Do You Or Have You Ever Used Any Other Forms Of Tobacco Or Nicotine? No MIGRATION.0301 879951 Information not available 10/29/2022 Sex: Female Functional Status Question Answer Note LastModified by Organizat ion Details LastModified Time Do you have difficulty walking or climbing stairs? No MIGRATION.9438703 026 Information not available 10/29/2022 Do you have transportation difficulties? No MIGRATION.6379344 026 Information not available 10/29/2022 Are you able to walk? YESWOREST MIGRATION.2255636 026 Information not available 10/29/2022 Do you have difficulty doing errands alone? No MIGRATION.6623065 026 Information not available 10/29/2022 Are you able to care for yourself? Yes MIGRATION.1235799 026 Information not available 10/29/2022 Do you have difficulty dressing or bathing? No MIGRATION.2665074 026 Information not available 10/29/2022 What is your exercise level? Occasional MIGRATION.4894388 026 Information not available 10/29/2022 Mental Status Question Answer Note LastModified by Organizat ion Details LastModified Time Do you have difficulty concentrating, remembering or making decisions? No MIGRATION.[id number] 6 Information not available 10/29/2022 Family History Relationship Description Onset Age of this Age Resolved Age Notes LastModified by Organization Details LastModified Time Mother Myocardial infarction MIGRATION.843 [id number] Not available 10/29/2022 05:58:24 Mother Basal cell carcinoma of skin MIGRATION.301 [id number] Not available 10/29/2022 05:58:24 Father Diabetes mellitus MIGRATION.094 0186525 Not available 10/29/2022 05:58:24 Father Amyotrophic lateral sclerosis deceas ed MIGRATION.545 [id number] Not available 10/29/2022 05:58:24 Brother Parkinson's disease MIGRATION.453 [id number] Not available 10/29/2022 05:58:24 Medical History Condition [...] ARTERY DISEASE (CAD) N ADDICTION CONCERNS N ENDOMETRIOSIS N Impotence N USE OF BLOOD THINNERS N SKIN [...] GLAUCOMA N FOOT PROBLEM N DIVERTICULITIS N CHICKENPOX N SLEEP APNEA N INFECTIOUS DISEASE N HEART ARRHYTHMIA N PROSTATE N INSOMNIA Y HIGH CHOLESTEROL / HYPERLIPIDEMIA Y HYPERTHYROIDISM N EYE PROBLEMS Y EDEMA N CHRONIC PAIN SYNDROME N HYPOTHYROIDISM N CAROTID BLOCKAGE N CONSTIPATION N BACK / NECK PROBLEMS N HAVE YOU BEEN HOSPITALIZED OR SEEN IN [facility] IN THE PAST YEAR ? Y ATHEROSCLEROSIS N BREAST PROBLEMS N DIALYSIS N ECZEMA N OSTEOPOROSIS N ARTHRITIS N APPENDICITIS N DIABETES, TYPE N BAD TEETH N ENT N HEARTBURN / REFLUX N AUTISM SPECTRUM DISORDER (ASD) N HEPATITIS / LIVER DISEASE N GOUT N SLEEP DISORDER N ALZHEIMER'S DISEASE N Brain Problems N HERPES N DEMENTIA N HEADACHES/MIGRAINES N SEIZURES/EPILEPSY N VASCULAR DISEASE N PACEMAKER N Blood Disorder N DIZZINESS N HEART DISEASE/HEART PROBLEMS N KIDNEY DISEASE N MULTIPLE SCLEROSIS N CARDIAC ARRHYTHMIA N CANCER: SPECIFY N ATRIAL FIBRILLATION N Gall Stones N [...] 50 mcg/0.25mL dose 1 completed Not Available [facility] 07/09/2023 05:44:45 COVID-19, mRNA, LNP-S, PF, 100 mcg/0.5mL dose or 50 mcg/0.25mL dose 1 completed Not Available [facility] 07/09/2023 05:44:45 Influenza, high-dose, quadrivalent, PF 0 completed Not Available [facility] 07/09/2023 05:44:45 pneumococcal polysaccharide PPV23 0 completed Not Available [facility] 07/09/2023 05:44:45 zoster live 9 completed Not Available [facility] 07/09/2023 05:44:45 Pneumococcal conjugate PCV 13 9 completed Not Available [facility] 07/09/2023 05:44:45 influenza, unspecified formulation 8 completed Not Available [facility] 07/09/2023 05:44:45 COVID-19, mRNA, LNP-S, PF, 100 mcg/0.5mL dose or 50 mcg/0.25mL dose 1 completed Not Available [facility] 07/09/2023 05:44:45 Influenza, high-dose, quadrivalent, PF 1 completed Not Available [facility] 07/09/2023 05:44:45 Past Encounters Encounter ID Performer Location Encounter Start Date Encounter Closed Date Diagnosis/Indication Diagnosis SNOMED-CT Code Diagnosis ICD10 Code Diagnosis Note [id number] Bar Rey MD [facility] [address] [address] 03/18/2021 00:00:00 03/18/2021 21:49:28 [id number] Bar Rey MD [facility] [address] [facility] [address] [address] 09/09/2021 00:00:00 09/09/2021 11:29:51 [id number] Satanm Trejo MD [facility] [address] 11/21/2021 00:00:00 11/21/2021 12:30:01 [id number] Satnam Trejo MD [facility] [address] 12/05/2021 00:00:00 12/05/2021 09:32:05 [id number] Satnam Trejo MD [facility] [address] [address] 12/26/2021 00:00:00 12/26/2021 12:25:10 [id number] Satnam Trejo MD [facility] [address] [address] 01/16/2022 00:00:00 01/16/2022 11:40:35 [id number] Bar Rey MD [facility] [address] [facility] [address] [address] 03/10/2022 00:00:00 03/16/2022 10:37:56 [id number] Bar Rey MD [facility] Internal Med [facility] [address] [place] [address] [address] [address] 06/09/2022 00:00:00 06/09/2022 14:04:06 [id number] Bar Rey MD [facility] Internal Med [facility] [address] [place] [address] [address] [address] 07/14/2022 00:00:00 07/14/2022 22:48:22 [id number] Bar Rey MD [facility] Internal Med [facility] [address] [address] 11/17/2022 10:57:08 11/17/2022 11:50:03 Hyperlipidemia 06040708 E78.5 Type 2 tej betes mellitus without complication 094936562 E11.9 Fatigue 63459047 R53.83 [id number] Bar Rey MD [facility] Internal Med [facility] [address] [address] 05/18/2023 10:38:23 05/18/2023 11:26:27 Hyperlipidemia 62842593 E78.5 Type 2 tej betes mellitus without complication 977507137 E11.9 Essential hypertension 79815706 I10 Dysuria 02951084 R30.0 [id number] Param Monteiro MD [facility] [place] [address] [place] [address] 12/22/2023 09:12:16 12/22/2023 09:42:43 Pain of right wrist [id number] 18077 M25.223 [id number] Param Monteiro MD [facility] [place] [address] [place] [address] 01/13/2024 10:07:37 01/13/2024 10:30:37 Pain of right wrist [id number] 14121 M25.473 [id number] Param Monteiro MD [facility] [place] [address] [place] [address] 01/27/2024 11:07:46 01/27/2024 11:54:15 Pain of right wrist [id number] 65511 M25.[address] [id number] [address] [facility] [place] [address] [place] [address] 02/10/2024 09:35:52 02/10/2024 10:17:29 Pain of right wrist [id number] 12148 M25.531 Health Concerns Section Related Observation LastModified by Organization Detai ls LastModified Time None Recorded Concern Status LastModified by Organization Details LastModified Time None Recorded Advance Directives Directive Y: Payers Encounter Date Sequence Insurance Name Policy Number Policy Metcalf Covered Member ID Metcalf Member ID Guarantor Name 05/18/2023 1 [facility] (MEDICARE REPLACEMENT/A DVANTAGE - HMO) [id number] Mariia Riley [id number] Mariia Riley 12/22/2023 1 [facility] (MEDICARE REPLACEMENT/A DVANTAGE - HMO) [id number] Mariia Riley [id number] Mariia Riley 01/13/2024 1 [facility] (MEDICARE REPLACEMENT/A DVANTAGE - HMO) [id number] Mariia Riley [id number] Mariia Riley 01/27/2024 1 [facility] (MEDICARE REPLACEMENT/A DVANTAGE - HMO) [id number] Mariia Riley [id number] Mariia Riley 02/10/2024 1 [facility] (MEDICARE REPLACEMENT/A DVANTAGE - HMO) [id number] Mariia Riley [id number] Mariia Riley Notes Date Note Type Note Provider Name and Address Organization Details Recorded Time 05/18/2023 text/html Insomnia about t he same fatigue comes and goes hyperlipidemia tries to watch diet diabetes cannot tolerate metformin. Some dysuria Bar Rey MD [address] [place] [address], [facility] [address], [place], [address], [facility] [employer] 06/14/2023 14:30:15 OBGyn Episode No OBEpisode recorded.
--- OUTSIDE RECORDS SUMMARY | 2025-01-07 07:08 | XMS_ITS | Referral Summary ---
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 EDITOR Gender Identity Not on file Sexual Orientation Not on file Last Filed Vital Signs Vital Sign Reading Time Taken Comments Blood Pressure 146/82 08/08/2022 10:42 AM SCRIPT EDITOR Pulse 99 08/08/2022 10:42 AM SCRIPT EDITOR Temperature 36.7 C (98.1 F) 11/02/2012 11:37 AM SCRIPT EDITOR Respiratory Rate - - Oxygen Saturation 97% 08/08/2022 10:42 AM SCRIPT EDITOR Inhaled Oxygen Concentration - - Weight 71.5 kg (157 lb 9.6 oz) 08/08/2022 10:42 AM SCRIPT EDITOR Height 167.6 cm (5' 5.98 ) 08/08/2022 10:42 AM Sean FERMIN Body Mass Index 25.45 08/08/2022 10:42 AM SCRIPT EDITOR Plan of Treatment Not on file Insurance [employer] HMO REF [facility] MEDIC[facility] Address: [facility] [address] [place] [address] Care Teams Crystal Slicer Relationship Specialty Start Date End Date Gautam Rey MD PCP - General Internal Medicine 06/09/22
[2025-01-07 08:19] LABS: Hemoglobin 14.1 g/dL (12.0-15.0); Mean Corpuscular HGB Conc 31.3 g/dl (32-36); Mean Corpuscular Hemoglobin 27.5 pg (26-34); Mean Corpuscular Volume 87.7 fl (80-100); Mean Platelet Volume 9.3 fl (7.4-10.4); Platelet Count Result 189 k/mm3 (150-375); Red Blood Count 5.13 M/mm3 (4.2-5.4); Red Cell Distribution Width 12.7 % (11.5-14.5); White Blood Count 4.5 K/mm3 (4.5-10.0)
[2025-01-07 08:50] LABS: Alanine Aminotransferase 20 U/L (6-35); Albumin Level 4.3 g/dL (3.5-5.1); Alkaline Phosphatase 67 U/L (38-126); Anion Gap 6 mmol/L (4-12); Aspartate Amino Transferase 30 U/L (14-36); Bilirubin,Total 0.7 mg/dL (0.2-1.3); Blood Urea Nitrogen 10 mg/dL (7-17); CRP < 0.5 mg/dL (<1.0); Carbon Dioxide 29 mmol/L (22-30); Chloride 106 mmol/L (98-107); Estimated Glomerular Filt Rate > 60; Glucose 123 mg/dL (65-110); Potassium 4.2 mmol/L (3.4-5.0); Sodium 141 mmol/L (137-145)
[2025-01-07 08:51] LABS: Erythrocyte Sedimentation Rate 12 mm/hr (0-20)
[2025-01-09 14:28] LABS: ANA Cascade Screen NEGATIVE (NEGATIVE); SM Antibody <1.0 NEG AI (<1.0 NEG); SM/RNP Antibody <1.0 NEG AI (<1.0 NEG)
== END 2025-01-07 06:54 | disposition home or self-care (01) ==
PROVIDERS: PCP Internal Medicine
DX: G62.9 Polyneuropathy, unspecified (principal); R93.89 Abnormal findings on diagnostic imaging of other specified body structures
CPT/HCPCS: 36415; 80053; 82607; 84443; 85027; 85652; 86038; 86140; 86225; 86235; 86364

== ENCOUNTER 2025-03-17 11:05 | Emergency (ER) | payer MEDICARE, SELFPAY ==
--- NOTE | ~2025-03-17 | XR_ITS ---
XR knee RT 3V Ordering provider: Katiana Guerrero PA-C History: . pain after fall 03/04/25 alsp has polyneuropathy . Comparison: None. FINDINGS: BONES: No acute fracture or dislocation. JOINT SPACES: Narrowing of the medial and lateral compartment. SOFT TISSUES: Normal. IMPRESSION: No acute osseous abnormality right knee. Reviewed, dictated and finalized at location A.
--- OUTSIDE RECORDS SUMMARY | 2025-03-17 11:08 | XMS_ITS | Data Portability ---
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 [email or web address] Not available 11/29/2023 16:34:10 05/10/2024 05/10/2024 We [...] been going on for quite some time [email or web address] Not available 07/03/2024 12:09:13 09/27/2024 09/27/2024 because of her m uscle complaints we have held the statin she needs blood work to re-evaluate her diabetes and her lipid status I believe she is seeing Neurology in the next month or 2 she will see me in 4 months [email or web address] Not available 10/02/2024 18:42:56 01/06/2025 01/06/2025 We will continue current therapy which is predominantly conservative right now no statin therapy because of her weakness I am awaiting definitive diagnosis if at all possible from Neurology stay as active as she can see me back in 2 months [email or web address] Not available 01/07/2025 18:27:32 Plan of Treatment Reminders Order Date Submit Date Provider Last Modified By Organization Details Last Modified Time Details Appointments ANY 15 2024 09:00A M Bar Rey MD Not available Not available Not available Lab CK (creatine kinase), total, serum 2023 [facility], [address], [place], [address], 07/05/2024 13:15:05 thyroglob ulin Ab, serum 2023 [facility], [address], [place], [address], 07/05/2024 13:15:08 aldolase, serum 2023 [facility], [address], [place], [address], 07/05/2024 13:15:07 acetylcho line receptor Ab, [facility] [address], [place], [address], 07/05/2024 13:15:09 CK (creatine kinase), total, serum 2023 [facility], [address], [place], [address], 05/11/2024 19:09:29 JORGE (antinucl ear antibodie s) screen, serum 2023 [facility], [address], [place], [address], 05/11/2024 19:09:28 rf (rheumato id factor), serum 2023 [facility], [address], [place], [address], 05/11/2024 19:09:31 CBC w/ auto diff 2023 024 [facility], [address], [place], [address], 05/11/2024 19:09:30 CMP, serum or plasma 2023 024 [facility], [address], [place], [address], 05/11/2024 19:09:28 T3, free, serum or plasma 2023 024 [facility], [address], [place], [address], 05/11/2024 19:09:32 T4, free, serum 2023 024 [facility], [address], [place], [address], 05/11/2024 19:09:32 TSH, ultra-sen sitive, serum 2023 024 [facility], [address], [place], [address], 05/11/2024 19:09:30 HbA1c (hemoglob in A1c), blood 2023 024 [email or web address] In-Office Order, Internal Use Only DO Not Attach Compendium DO Not Attach Compendium, Do Not Delete/merge, [id number] 11/16/2023 11:48:38 CBC w/ auto diff 2023 024 [facility], [address], [place], [address], 11/17/2023 11:15:08 lipid panel, serum 2023 024 [facility], [address], [place], [address], 11/17/2023 11:15:06 CMP, serum or plasma 2023 024 [facility], [address], [place], [address], 11/17/2023 11:15:07 Referral None recorded. Procedures None recorded. Surgeries None recorded. Imaging None recorded. Medication Orders Macrobid 100 mg capsule 2023 024 [facility] [address] [facility], [place], [address], 01/06/2025 12:21:59 Patient TargetsNo targets recorded. Patient Instructions Encounter Date Encounter Id Patient Instructions Last Modified By Organization Details Last Modified Time 01/06/2025 [id number] A healthy lifestyle: care instructions [email or web address] Not available 01/06/2025 15:12:40 Reason for Referral None Reported. Results Created Date Observation Date Name Description Value Unit Range Abnormal Flag Note LastModifiedBy Organization Detail LastModifiedTime 11/16/1911/17/2023 LIPID PANEL cholesterol, total 175 mg/dL 100-19 9 Not Available [facility] ([facility]) [address] [facility], [place], [address], 11/17/2023 11:15:06 11/16/1911/17/2023 LIPID PANEL triglyceride s 186 mg/dL 0-149 above high normal Not Available [facility] ([facility]) [address] [place], [address], 11/17/2023 11:15:06 11/16/19 24 11/17/2023 LIPID PANEL HDL cholesterol 53 mg/dL >39 Not Available [facility] ([facility]) [address] [place], [address], 11/17/2023 11:15:06 11/16/19 24 11/17/2023 LIPID PANEL VLDL cholesterol vladimir 32 mg/dL 5-40 Not Available [facility] ([facility]) [address] [place], [address], 11/17/2023 11:15:06 11/16/19 24 11/17/2023 LIPID PANEL LDL chol calc ([facility]) 90 mg/dL 0-99 Not Available [facility] ([facility]) [address] [place], [address], 11/17/2023 11:15:06 11/16/19 24 11/17/2023 CMP14 glucose 128 mg/dL 70-99 above high normal Not Available [facility] ([facility]) [address] [facility], [place], [address], 11/17/2023 11:15:07 11/16/19 24 11/17/2023 CMP14 BUN 11 mg/dL 8-27 Not Available [facility] ([facility]) [address] [place], [address], 11/17/2023 11:15:07 11/16/19 24 11/17/2023 CMP14 creatinine 0.74 mg/dL 0.57-1 .00 Not Available [facility] ([facility]) [address] [facility], [place], [address], 11/17/2023 11:15:07 11/16/19 24 11/17/2023 CMP14 eGFR 84 mL/mi n/1.7 3 >59 Not Available [facility] ([facility]) [address] [place], [address], 11/17/2023 11:15:07 11/16/19 24 11/17/2023 CMP14 sodium 142 mmol/ L 134-14 4 Not Available [facility] ([facility]) [address] [place], [address], 11/17/2023 11:15:07 11/16/19 24 11/17/2023 CMP14 potassium 4.4 mmol/ L 3.5-5. 2 Not Available [facility] ([facility]) [address] [place], [address], 11/17/2023 11:15:07 11/16/19 24 11/17/2023 CMP14 chloride 105 mmol/ L 96-106 Not Available [facility] ([facility]) [address] [place] [place], [address], 11/17/2023 11:15:07 11/16/19 24 11/17/2023 CMP14 carbon dioxide, total 24 mmol/ L 20-29 Not Available [facility] ([facility]) [address] [place], [address], 11/17/2023 11:15:07 11/16/19 24 11/17/2023 CMP14 calcium 10.3 mg/dL 8.7-10 .3 Not Available [facility] ([facility]) [address] [place] [place], [address], 11/17/2023 11:15:07 11/16/19 24 11/17/2023 CMP14 protein, total 6.7 g/dL 6.0-8. 5 Not Available [facility] ([facility]) [address] [place], [address], 11/17/2023 11:15:07 11/16/19 24 11/17/2023 CMP14 albumin 4.4 g/dL 3.8-4. 8 Not Available [facility] ([facility]) [address] [place] [place], [address], 11/17/2023 11:15:07 11/16/19 24 11/17/2023 CMP14 globulin, total 2.3 g/dL 1.5-4. 5 Not Available [facility] ([facility]) [address] [place], [address], 11/17/2023 11:15:07 03/18/20 24 11/17/2023 CMP14 A/G ratio 1.9 1.2-2. 2 Not Available [facility] ([facility]) [address] [facility], [place], [address], 11/17/2023 11:15:07 11/16/19 24 11/17/2023 CMP14 bilirubin, total 0.6 mg/dL 0.0-1. 2 Not Available [facility] ([facility]) [address] [facility], [place], [address], 11/17/2023 11:15:07 11/16/19 24 11/17/2023 CMP14 alkaline phosphatase 89 IU/L 44-121 Not Available [facility] ([facility]) [address] [facility], [place], [address], 11/17/2023 11:15:07 11/16/19 24 11/17/2023 CMP14 AST (SGOT) 25 IU/L 0-40 Not Avail able [facility] ([facility]) [address] [facility], [place], [address], 11/17/2023 11:15:07 11/16/19 24 11/17/2023 CMP14 ALT (SGPT) 23 IU/L 0-32 Not Avail able [facility] ([facility]) [address] [facility], [place], [address], 11/17/2023 11:15:07 11/16/19 24 11/17/2023 CBC WITH DIFFE RENTI AL/PL ATELE T WBC 6.1 x10e3 /uL 3.4-10 .8 Not Available [facility] ([facility]) [address] [place], [address], 11/17/2023 11:15:08 11/16/19 24 11/17/2023 CBC WITH DIFFE RENTI AL/PL ATELE T RBC 5.19 x10e6 /uL 3.77-5 .28 Not Available [facility] ([facility]) [address] [facility], [place], [address], 11/17/2023 11:15:08 11/16/19 24 11/17/2023 CBC WITH DIFFE RENTI AL/PL ATELE T hemoglobin 14.3 g/dL 11.1-1 5.9 Not Available [facility] ([facility]) [address] [facility], [place], [address], 11/17/2023 11:15:08 11/16/19 24 11/17/2023 CBC WITH DIFFE RENTI AL/PL ATELE T hematocrit 44.1 % 34.0-4 6.6 Not Available [facility] ([facility]) [address] [facility], [place], [address], 11/17/2023 11:15:08 11/16/19 24 11/17/2023 CBC WITH DIFFE RENTI AL/PL ATELE T MCV 85 fL 79-97 Not Available [facility] ([facility]) [address] [facility], [place], [address], 11/17/2023 11:15:08 11/16/19 24 11/17/2023 CBC WITH DIFFE RENTI AL/PL ATELE T MCH 27.6 pg 26.6-3 3.0 Not Available [facility] ([facility]) [address] [facility], [place], [address], 11/17/2023 11:15:08 11/16/19 24 11/17/2023 CBC WITH DIFFE RENTI AL/PL ATELE T MCHC 32.4 g/dL 31.5-3 5.7 Not Available [facility] ([facility]) [address] [facility], [place], [address], 11/17/2023 11:15:08 11/16/19 24 11/17/2023 CBC WITH DIFFE RENTI AL/PL ATELE T RDW 12.3 % 11.7-1 5.4 Not Available [facility] ([facility]) [address], [place], [address], 11/17/2023 11:15:08 11/16/19 24 11/17/2023 CBC WITH DIFFE RENTI AL/PL ATELE T platelets 216 x10e3 /uL 150-45 0 Not Available [facility] ([facility]) [address], [place], [address], 11/17/2023 11:15:08 11/16/19 24 11/17/2023 CBC WITH DIFFE RENTI AL/PL ATELE T neutrophils 66 % notest ab. Not Available [facility] ([facility]) [address] [facility], [place], [address], 11/17/2023 11:15:08 11/16/19 24 11/17/2023 CBC WITH DIFFE RENTI AL/PL ATELE T lymphs 25 % notest ab. Not Available [facility] ([facility]) [address] [facility], [place], [address], 11/17/2023 11:15:08 11/16/19 24 11/17/2023 CBC WITH DIFFE RENTI AL/PL ATELE T monocytes 6 % notest ab. Not Available [facility] ([facility]) [address] [facility], [place], [address], 11/17/2023 11:15:08 11/16/19 24 11/17/2023 CBC WITH DIFFE RENTI AL/PL ATELE T eos 2 % notest ab. Not Available [facility] ([facility]) [address] [facility], [place], [address], 11/17/2023 11:15:08 11/16/19 24 11/17/2023 CBC WITH DIFFE RENTI AL/PL ATELE T basos 1 % notest ab. Not Available [facility] ([facility]) [address] [facility], [place], [address], 11/17/2023 11:15:08 11/16/19 24 11/17/2023 CBC WITH DIFFE RENTI AL/PL ATELE T neutrophils (absolute) 4.0 x10e3 /uL 1.4-7. 0 Not Available [facility] ([facility]) [address] [facility], [place], [address], 11/17/2023 11:15:08 11/16/19 24 11/17/2023 CBC WITH DIFFE RENTI AL/PL ATELE T lymphs (absolute) 1.5 x10e3 /uL 0.7-3. 1 Not Available [facility] ([facility]) [address] [facility], [place], [address], 11/17/2023 11:15:08 11/16/19 24 11/17/2023 CBC WITH DIFFE RENTI AL/PL ATELE T monocytes(ab solute) 0.4 x10e3 /uL 0.1-0. 9 Not Available [facility] ([facility]) [address] [facility], [place], [address], 11/17/2023 11:15:08 11/16/19 24 11/17/2023 CBC WITH DIFFE RENTI AL/PL ATELE T eos (absolute) 0.1 x10e3 /uL 0.0-0. 4 Not Available [facility] ([facility]) [address] [facility], [place], [address], 11/17/2023 11:15:08 11/16/19 24 11/17/2023 CBC WITH DIFFE RENTI AL/PL ATELE T baso (absolute) 0.0 x10e3 /uL 0.0-0. 2 Not Available [facility] ([facility]) [address] [facility], [place], [address], 11/17/2023 11:15:08 11/16/19 24 11/17/2023 CBC WITH DIFFE RENTI AL/PL ATELE T immature granulocytes 0 % notest ab. Not Available [facility] ([facility]) [address] [facility], [place], [address], 11/17/2023 11:15:08 11/16/19 24 11/17/2023 CBC WITH DIFFE RENTI AL/PL ATELE T immature grans (abs) 0.0 x10e3 /uL 0.0-0. 1 Not Available [facility] ([facility]) [address] [facility], [place], [address], 11/17/2023 11:15:08 11/16/19 24 11/16/2023 HbA1c (hemo globi n A1c), blood HbA1c 6.7 Not Available In-Office Order Internal Use Only DO Not Attach Compendium DO Not Attach Compendium, Do Not Delete/merge, [id number] 11/16/2023 10:38:13 05/10/20 24 05/11/2024 JORGE W/REF PRISCILLA JORGE direct NEGATI VE negati ve Not Available [facility] ([facility]) [address] [facility], [place], [address], 05/11/2024 19:09:28 05/10/20 24 05/11/2024 COMP. METAB OLIC PANEL (14) glucose 139 mg/dL 70-99 above high normal Not Available [facility] ([facility]) [address] [facility], [place], [address], 05/11/2024 19:09:28 05/10/20 24 05/11/2024 COMP. METAB OLIC PANEL (14) BUN 7 mg/dL 8-27 below low normal Not Available [facility] ([facility]) [address] [facility], [place], [address], 05/11/2024 19:09:28 05/10/20 24 05/11/2024 COMP. METAB OLIC PANEL (14) creatinine 0.76 mg/dL 0.57-1 .00 Not Available [facility] ([facility]) [address] [facility], [place], [address], 05/11/2024 19:09:28 05/10/20 24 05/11/2024 COMP. METAB OLIC PANEL (14) eGFR 81 mL/mi n/1.7 3 >59 Not Available [facility] ([facility]) [address] [facility], [place], [address], 05/11/2024 19:09:28 05/10/20 24 05/11/2024 COMP. METAB OLIC PANEL (14) BUN/creatini ne ratio 9 12-28 below low normal Not Available [facility] ([facility]) [address] [facility], [place], [address], 05/11/2024 19:09:28 05/10/20 24 05/11/2024 COMP. METAB OLIC PANEL (14) sodium 142 mmol/ L 134-14 4 Not Available [facility] ([facility]) [address] [facility], [place], [address], 05/11/2024 19:09:28 05/10/20 24 05/11/2024 COMP. METAB OLIC PANEL (14) potassium 4.6 mmol/ L 3.5-5. 2 Not Available [facility] ([facility]) [address] [facility], [place], [address], 05/11/2024 19:09:28 05/10/20 24 05/11/2024 COMP. METAB OLIC PANEL (14) chloride 102 mmol/ L 96-106 Not Available [facility] ([facility]) [address] [facility], [place], [address], 05/11/2024 19:09:28 05/10/20 24 05/11/2024 COMP. METAB OLIC PANEL (14) carbon dioxide, total 23 mmol/ L 20-29 Not Available [facility] ([facility]) [address] [facility], [place], [address], 05/11/2024 19:09:28 05/10/20 24 05/11/2024 COMP. METAB OLIC PANEL (14) calcium 10.5 mg/dL 8.7-10 .3 above high normal Not Available [facility] ([facility]) [address], [place], [address], 05/11/2024 19:09:28 05/10/20 24 05/11/2024 COMP. METAB OLIC PANEL (14) protein, total 6.9 g/dL 6.0-8. 5 Not Available [facility] ([facility]) [address], [place], [address], 05/11/2024 19:09:28 05/10/20 24 05/11/2024 COMP. METAB OLIC PANEL (14) albumin 4.3 g/dL 3.8-4. 8 Not Available [facility] ([facility]) [address], [place], [address], 05/11/2024 19:09:28 05/10/20 24 05/11/2024 COMP. METAB OLIC PANEL (14) globulin, total 2.6 g/dL 1.5-4. 5 Not Available [facility] ([facility]) [address] [facility] [place], [address], 05/11/2024 19:09:28 05/10/20 24 05/11/2024 COMP. METAB OLIC PANEL (14) bilirubin, total 0.5 mg/dL 0.0-1. 2 Not Available [facility] ([facility]) [address] [facility], [place], [address], 05/11/2024 19:09:28 05/10/20 24 05/11/2024 COMP. METAB OLIC PANEL (14) alkaline phosphatase 79 IU/L 44-121 Not Available [facility]) [address] [facility], [place], [address], 05/11/2024 19:09:28 05/10/20 24 05/11/2024 COMP. METAB OLIC PANEL (14) AST (SGOT) 25 IU/L 0-40 Not Available [facility] ([facility]) [address] [facility], [place], [address], 05/11/2024 19:09:28 05/10/20 24 05/11/2024 COMP. METAB OLIC PANEL (14) ALT (SGPT) 18 IU/L 0-32 Not Available [facility] ([facility]) [address] [place], [address], 05/11/2024 19:09:28 05/10/20 24 05/11/2024 CK, TOTAL creatine kinase,total 273 U/L 32-182 above high normal Not Available [facility] ([facility]) [address] [place], [address], 05/11/2024 19:09:29 05/10/20 24 05/11/2024 TSH TSH 0.836 uIU/m L 0.450- 4.500 Not Available [facility] ([facility]) [address] [place], [address], 05/11/2024 19:09:30 05/10/20 24 05/11/2024 CBC WITH DIFFE RENTI AL/PL ATELE T WBC 5.9 x10e3 /uL 3.4-10 .8 Not Available [facility] ([facility]) [address] [place], [address], 05/11/2024 19:09:30 05/10/20 24 05/11/2024 CBC WITH DIFFE RENTI AL/PL ATELE T RBC 5.13 x10e6 /uL 3.77-5 .28 Not Available [facility] ([facility]) [address] [place], [address], 05/11/2024 19:09:30 05/10/20 24 05/11/2024 CBC WITH DIFFE RENTI AL/PL ATELE T hemoglobin 14.6 g/dL 11.1-1 5.9 Not Available [facility] ([facility]) [address] [facility] [place], [address], 05/11/2024 19:09:30 05/10/20 24 05/11/2024 CBC WITH DIFFE RENTI AL/PL ATELE T hematocrit 45.1 % 34.0-4 6.6 Not Available [facility] ([facility]) [address] [facility], [place], [address], 05/11/2024 19:09:30 05/10/20 24 05/11/2024 CBC WITH DIFFE RENTI AL/PL ATELE T MCV 88 fL 79-97 Not Available [facility] ([facility]) [address] [facility], [place], [address], 05/11/2024 19:09:30 05/10/20 24 05/11/2024 CBC WITH DIFFE RENTI AL/PL ATELE T MCH 28.5 pg 26.6-3 3.0 Not Available [facility] ([facility]) [address] [facility], [place], [address], 05/11/2024 19:09:30 05/10/20 24 05/11/2024 CBC WITH DIFFE RENTI AL/PL ATELE T MCHC 32.4 g/dL 31.5-3 5.7 Not Available [facility] ([facility]) [address] [place], [address], 05/11/2024 19:09:30 05/10/20 24 05/11/2024 CBC WITH DIFFE RENTI AL/PL ATELE T RDW 12.1 % 11.7-1 5.4 Not Available [facility] ([facility]) [address] [place], [address], 05/11/2024 19:09:30 05/10/20 24 05/11/2024 CBC WITH DIFFE RENTI AL/PL ATELE T platelets 242 x10e3 /uL 150-45 0 Not Available [facility] ([facility]) [address] [place], [address], 05/11/2024 19:09:30 05/10/20 24 05/11/2024 CBC WITH DIFFE RENTI AL/PL ATELE T neutrophils 61 % notest ab. Not Available [facility] ([facility]) [address] [facility], [place], [address], 05/11/2024 19:09:30 05/10/20 24 05/11/2024 CBC WITH DIFFE RENTI AL/PL ATELE T lymphs 29 % notest ab. Not Available [facility] ([facility]) [address] [facility], [place], [address], 05/11/2024 19:09:30 05/10/20 24 05/11/2024 CBC WITH DIFFE RENTI AL/PL ATELE T monocytes 7 % notest ab. Not Available [facility] ([facility]) [address] [facility], [place], [address], 05/11/2024 19:09:30 05/10/20 24 05/11/2024 CBC WITH DIFFE RENTI AL/PL ATELE T eos 2 % notest ab. Not Available [facility] ([facility]) [address] [facility], [place], [address], 05/11/2024 19:09:30 05/10/20 24 05/11/2024 CBC WITH DIFFE RENTI AL/PL ATELE T basos 1 % notest ab. Not Available [facility] ([facility]) [address] [facility], [place], [address], 05/11/2024 19:09:30 05/10/20 24 05/11/2024 CBC WITH DIFFE RENTI AL/PL ATELE T neutrophils (absolute) 3.7 x10e3 /uL 1.4-7. 0 Not Available [facility] ([facility]) [address] [facility], [place], [address], 05/11/2024 19:09:30 05/10/20 24 05/11/2024 CBC WITH DIFFE RENTI AL/PL ATELE T lymphs (absolute) 1.7 x10e3 /uL 0.7-3. 1 Not Available [facility] ([facility]) [address] [facility], [place], [address], 05/11/2024 19:09:30 05/10/20 24 05/11/2024 CBC WITH DIFFE RENTI AL/PL ATELE T monocytes(ab solute) 0.4 x10e3 /uL 0.1-0. 9 Not Available [facility] ([facility]) [address] [facility], [place], [address], 05/11/2024 19:09:30 05/10/20 24 05/11/2024 CBC WITH DIFFE RENTI AL/PL ATELE T eos (absolute) 0.1 x10e3 /uL 0.0-0. 4 Not Available [facility] ([facility]) [address] [facility], [place], [address], 05/11/2024 19:09:30 05/10/20 24 05/11/2024 CBC WITH DIFFE RENTI AL/PL ATELE T baso (absolute) 0.0 x10e3 /uL 0.0-0. 2 Not Available [facility] ([facility]) [address] [facility], [place], [address], 05/11/2024 19:09:30 05/10/20 24 05/11/2024 CBC WITH DIFFE RENTI AL/PL ATELE T immature granulocytes 0 % notest ab. Not Available [facility] ([facility]) [address] [place], [address], 05/11/2024 19:09:30 05/10/20 24 05/11/2024 CBC WITH DIFFE RENTI AL/PL ATELE T immature grans (abs) 0.0 x10e3 /uL 0.0-0. 1 Not Available [facility] ([facility]) [address] [place], [address], 05/11/2024 19:09:30 05/10/20 24 05/11/2024 RHEUM ATOID FACTO R (RF) rheumatoid factor (rf) 10.7 IU/mL <14.0 Not Available [facility] ([facility]) [address] [place], [address], 05/11/2024 19:09:31 05/10/20 24 05/11/2024 TRIIO DOTHY JOHNSON E (T3), FREE triiodothyro nine (T3), free 2.9 pg/mL 2.0-4. 4 Not Available [facility] ([facility]) [address] [place], [address], 05/11/2024 19:09:32 05/10/20 24 05/11/2024 T4,FR EE(DI RECT) T4,free(dire ct) 1.13 NG/dL 0.82-1 .77 Not Available [facility] ([facility]) [address] [place], [address], 05/11/2024 19:09:32 06/21/20 24 06/22/2024 CK, TOTAL creatine kinase,total 270 U/L 32-182 above high normal Not Available [facility] ([facility]) [address] [place], [address], 07/05/2024 13:15:05 06/21/20 24 06/22/2024 ALDOL ASE aldolase 6.8 U/L 3.3-10 .3 Not Available [facility] ([facility]) [address] [place], [address], 07/05/2024 13:15:07 06/21/20 24 06/22/2024 THYRO ID ANTIB ODIES thyroid peroxidase (tpo) Ab 17 IU/mL 0-34 Not Available [facility] ([facility]) [address] [place], [address], 07/05/2024 13:15:08 06/21/20 24 06/22/2024 THYRO ID [...] very low level s. The assay wendi actur er has found that four perce nt of indiv idual s witho ut evide nce of thyro id disea se or autoi mmuni ty will have posit tracy TgAb level s up to 4 IU/mL . Not Available [facility] ([facility]) [address] [place], [address], 07/05/2024 13:15:08 06/21/20 24 07/05/2024 ACHR BLOCK ING ABS, SERUM AChR blocking abs, serum 14 % 0-25 Negat tracy: 0 - 25 Borde rline : 26 - 30 Posit tracy: >30 Not Available [facility] ([facility]) [address] [place], [address], 07/05/2024 13:15:09 10/04/19 25 10/05/2024 LIPID PANEL cholesterol, total 247 mg/dL 100-19 9 above high normal Not Available [facility] ([facility]) [address] [place], [address], 10/05/2024 06:19:30 10/04/19 25 10/05/2024 LIPID PANEL triglyceride s 160 mg/dL 0-149 above high normal Not Available [facility] ([facility]) [address] [place], [address], 10/05/2024 06:19:30 10/04/19 25 10/05/2024 LIPID PANEL HDL cholesterol 63 mg/dL >39 Not Available [facility] ([facility]) [address] [place], [address], 10/05/2024 06:19:30 10/04/19 25 10/05/2024 LIPID PANEL VLDL cholesterol vladimir 29 mg/dL 5-40 Not Available [facility] ([facility]) [address] [place], [address], 10/05/2024 06:19:30 10/04/19 25 10/05/2024 LIPID PANEL LDL chol calc ([facility]) 155 mg/dL 0-99 above high normal Not Available [facility] ([facility]) [address] [place], [address], 10/05/2024 06:19:30 10/04/19 25 10/05/2024 COMP. METAB OLIC PANEL (14) glucose 124 mg/dL 70-99 above high normal Not Available [facility] ([facility]) [address] [place], [address], 10/05/2024 06:19:31 10/04/19 25 10/05/2024 COMP. METAB OLIC PANEL (14) BUN 13 mg/dL 8-27 Not Available [facility] ([facility]) [address] [place], [address], 10/05/2024 06:19:31 10/04/19 25 10/05/2024 COMP. METAB OLIC PANEL (14) creatinine 0.77 mg/dL 0.57-1 .00 Not Available [facility] ([facility]) [address] [place], [address], 10/05/2024 06:19:31 10/04/19 25 10/05/2024 COMP. METAB OLIC PANEL (14) eGFR 79 mL/mi n/1.7 3 >59 Not Available [facility] ([facility]) [address] [place], [address], 10/05/2024 06:19:31 10/04/19 25 10/05/2024 COMP. METAB OLIC PANEL (14) BUN/creatini ne ratio 17 12-28 Not Available [facility] ([facility]) [address] [place] [place], [address], 10/05/2024 06:19:31 10/04/19 25 10/05/2024 COMP. METAB OLIC PANEL (14) sodium 140 mmol/ L 134-14 4 Not Available [facility] ([facility]) [address] [place], [address], 10/05/2024 06:19:31 10/04/19 25 10/05/2024 COMP. METAB OLIC PANEL (14) potassium 4.4 mmol/ L 3.5-5. 2 Not Available [facility] ([facility]) [address] [place], [address], 10/05/2024 06:19:31 10/04/19 25 10/05/2024 COMP. METAB OLIC PANEL (14) chloride 103 mmol/ L 96-106 Not Available [facility] ([facility]) [address] [place], [address], 10/05/2024 06:19:31 10/04/19 25 10/05/2024 COMP. METAB OLIC PANEL (14) carbon dioxide, total 24 mmol/ L 20-29 Not Available [facility] ([facility]) [address] [place], [address], 10/05/2024 06:19:31 10/04/19 25 10/05/2024 COMP. METAB OLIC PANEL (14) calcium 10.1 mg/dL 8.7-10 .3 Not Available [facility] ([facility]) [address] [place] [place], [address], 10/05/2024 06:19:31 10/04/19 25 10/05/2024 COMP. METAB OLIC PANEL (14) protein, total 6.6 g/dL 6.0-8. 5 Not Available [facility] ([facility]) [address] [place], [address], 10/05/2024 06:19:31 10/04/19 25 10/05/2024 COMP. METAB OLIC PANEL (14) albumin 4.0 g/dL 3.8-4. 8 Not Available [facility] ([facility]) [address] [place], [address], 10/05/2024 06:19:31 10/04/19 25 10/05/2024 COMP. METAB OLIC PANEL (14) globulin, total 2.6 g/dL 1.5-4. 5 Not Available [facility] ([facility]) [address] [place], [address], 10/05/2024 06:19:31 10/04/19 25 10/05/2024 COMP. METAB OLIC PANEL (14) bilirubin, total 0.5 mg/dL 0.0-1. 2 Not Available [facility] ([facility]) [address] [place], [address], 10/05/2024 06:19:31 10/04/19 25 10/05/2024 COMP. METAB OLIC PANEL (14) alkaline phosphatase 70 IU/L 44-121 Not Available [facility] ([facility]) [address] [place], [address], 10/05/2024 06:19:31 10/04/19 25 10/05/2024 COMP. METAB OLIC PANEL (14) AST (SGOT) 17 IU/L 0-40 Not Available [facility] ([facility]) [address] [place], [address], 10/05/2024 06:19:31 10/04/19 25 10/05/2024 COMP. METAB OLIC PANEL (14) ALT (SGPT) 12 IU/L 0-32 Not Available [facility] ([facility]) [address] [place], [address], 10/05/2024 06:19:31 10/04/19 25 10/05/2024 HEMOG LOBIN A1C hemoglobin A1C 6.6 % 4.8-5. 6 above high normal Predi abete s: 5.7 - 6.4 Diabe stephanie: >6.4 Glyce em contr ol for adult s with diabe stephanie: <7.0 Not Available [facility] ([facility]) [address] [facility], [place], [address], 10/05/2024 06:19:32 01/28/20 24 01/28/2024 DEXA No observ ation record ed. [address], [address], 02/02/2024 14:21:25 11/12/19 25 08/10/2024 elect romyo gram + nerve condu ction study No observ ation record ed. [facility] [address], [address], 11/23/2024 12:14:04 Result Notes None recorded. Problems Name Problem SNOMED Code Status Onset Date Resolution Date Notes Provider Name and Address Organization Details Recorded Time Menopausal syndrome 918287999 Active Mega Luca null, [place] - [facility] 5 13:19:46 Cystocele 271715170 Active Mega Luc[place] [facility] 5 13:19:46 Bladder muscle dysfunction - overactive Active Mega [place] [facility] 5 13:19:46 Muscle weakness 29773185 Active 2023 Meliton Major [place] [facility] 4 11:40:24 Fatigue 49301727 Active 2023 Meliton Major [place] [facility] 4 11:40:25 Pain of joint 29265011 Active 2023 Meliton Major [place] [facility] 4 11:40:26 Hyperlipidemia 61695541 Active 2023 Bar Rey MD Attn: George g,[address] [facility], [place], [address], [facility] - [facility] 4 12:08:18 Type 2 diabetes mellitus 85065874 Active 2023 Bar Rey MD Attn: George g,[address], [place], [address], [facility] - [facility] 4 12:08:29 Polyneuropathy 79033648 Active 2024 Xochilt Walsh LPN null, [place] - [facility] 5 11:54:32 Problem Notes None recorded. Procedures Surgical History Date Name Laterality Status Provider Name and Address Organization Details Recorded Time 3 Most Recent Mammogram completed Willow Ramsey MA [facility] 06/12/2015 12:48:29 3 Date of Last Pap Smear completed Willow Ramsey MA [facility] 06/12/2015 12:48:29 4 lumpectomy of breast completed ELIANE Oconnor [facility] 11/16/2023 10:40:33 repair of hole of macula lutea completed ELIANE Oconnor [facility] 11/16/2023 10:40:11 Other completed Willow Ramsey MA [facility] 06/12/2015 12:51:27 Breast Biopsy completed Willow Ramsey MA [facility] 06/12/2015 12:52:02 Imaging Results None recorded. Procedure Notes None recorded. Medical Equipment None Reported. Allergies Allergen ID Allergen Name Allergen Category Reaction Reaction Severity Criticality Documentation Date Start Date Code Code System Note Provider Name and Address Organization Details Recorded Time 134245 Benadryl medicatio n other Not available Not available 11/16/202305652 7 RxNorm nervo usnes s, Restl ess legs ELIANE Oconnor, [place] - [facility] 4 10:43:54 166184 Lexapro medicatio n Not available Not available Not available 11/16/2023 81274 1 RxNorm upset stoma ch, GERD Pao Flores, RMA [place], [place] - [facility] 4 10:43:28 617675 trazodone medicatio n other Not available Not available 11/16/2023 78844 RxNorm SAUL [place] [facility] 5 12:21:36 068634 Belsomra medicatio n insomnia Not available Not available 11/16/2023 84883 05 RxNorm Pao Flores RMSheyla [place] [facility] 4 10:44:04 942670 metformin medicatio n diarrhea other Not available Not available Not available 11/16/2023 6809 RxNorm flatu renu Pao Flores RMA [place] [facility] 4 10:44:33 632693 Farxiga medicatio n Not available Not available Not available 11/16/2023 68875 72 RxNorm flatu lence , diarr hea, UTI Pao Flores, RMA [place] [facility] 4 10:44:50 476498 omeprazol e medicatio n other Not available high 06/21/20242018 7646 RxNorm SAUL [place] [facility] 5 12:21:24 301564 diphenhyd ramine medicatio n other Not available high 01/06/20252012 3498 RxNorm restl ess and fidge ty unrec ogniz ed react ion (text : Anxie ty, code: [id number]) [facility] SA[place] [facility] 5 12:21:14 845173 escitalop suresh Not available Not available Not available high 01/06/20252018 00243 8 RxNorm unrec ogniz ed react ion (text : Unkno wn, code: [id number] [id number]) (from [facility]) Tatiana SAUL Laird, [place] - [facility] 5 12:21:19 610454 pantopraz ole medicatio n Not available Not available high 01/06/20252018 79576 RxNorm unrec ogniz ed react ion (text : Unkno wn, code: [id number] 5006) [facility] SAUL [place] [facility] 5 12:21:28 658388 suvorexan t medicatio n other Not available [facility] 01/06/20252018 18758 99 RxNorm ASUL [place]don[place], [place] - [facility] 5 12:21:31 Medications Name Sig Start Date [...] in Arterial blood by Pulse oximetry Systolic And Diastolic Provider Name and Address Organization Details Last Updated DateTime 5 170.18 cm 24.1 kg/m2 55857.5 1 g 97 /min 97 % 97 % 128/70 mm[Hg] Gayla Bateman MA [facility] 5 11:03:58 Date Recorded Body weight Body mass index (BMI) Body height Heart rate Oxygen saturation Oxygen saturation in Arterial blood by Pulse oximetry Systolic And Diastolic Provider Name and Address Organization Details Last Updated DateTime 4 54401.6 7 g 24.8 kg/m2 170.18 cm 80 /min 96 % 96 % 138/76 mm[Hg] ELIANE Oconnor [facility] 4 10:30:43 Date Recorded Body height Body mass index (BMI) Body weight Heart rate Oxygen saturation Oxygen saturation in Arterial blood by Pulse oximetry Systolic And Diastolic Provider Name and Address Organization Details Last Updated DateTime 5 170.18 cm 24.4 kg/m2 63239.6 9 g 100 /min 97 % 97 % 120/62 mm[Hg] Tatiana Laird MA [facility] 5 12:20:56 Date Recorded Body height Body mass index (BMI) Body weight Heart rate Oxygen saturation Oxygen saturation in Arterial blood by Pulse oximetry Systolic And Diastolic Provider Name and Address Organization Details Last Updated DateTime 4 170.18 cm 23.4 kg/m2 34127.7 g 79 /min 97 % 97 % 142/70 mm[Hg] Mary Rowe SAUL [facility] 4 10:58:37 Date Recorded Body height Body mass index (BMI) Body weight Heart rate Oxygen saturation Oxygen saturation in Arterial blood by Pulse oximetry Systolic And Diastolic Provider Name and Address Organization Details Last Updated DateTime 4 170.18 cm 23.5 kg/m2 10785.9 3 g 83 /min 98 % 98 % 130/68 mm[Hg] Gayla BatemanSAUL [place] - [facility] 4 11:44:46 Social History Question Answer Notes LastModified by Organizat ion Details LastModified Time Tobacco Smoking Status Never Smoker Willow SAUL Ramsey [facility] 06/12/2015 12:57:46 Do You Have An Advance Directive? Yes Information not available 06/12/2015 Are You Blind [...] No Information not available 06/21/2024 Are You Deaf Or Do You Have Serious Difficulty Hearing? No Information not available 06/21/2024 What Type Of Diet Are You Following? REGULAR Information not available 06/12/2015 Which Illicit Or Recreational Drugs Have You Used? None Information not available 06/12/2015 Education 12 Information no t available 06/12/2015 Are There Any Guns Present [...] High Information not available 06/12/2015 Do You Use Sunscreen Routinely? No Information not available 06/12/2015 Has Tobacco Cessation Counseling Been Provided? No Information not available 06/21/2024 Sex: Female Functional Status Question Answer Note LastModified by Organizat ion Details LastModified Time Do you use any illicit or recreational drugs? No Information not available 06/21/2024 Do you or have you ever used any other forms of tobacco or nicotine? No Information not available 06/21/2024 What is your level of alcohol consumption? None Information not available 06/12/2015 Are you currently employed? No Information not available 06/12/2015 Are you able to care for yourself? Yes Information n ot available 06/21/2024 What is your occupation? retired Information not available 06/12/2015 What is your exercise level? Moderate Information not available 06/12/2015 Mental Status Question Answer Note LastModified by Organization D etails LastModified Time Do you feel stressed (tense, restless, nervous, or anxious, or unable to sleep at night)? [id number] [facility] Information not available 06/21/2024 Family History Relationship Description Onset Age of this Age Resolved Age Notes LastModified by Organization Details LastModified Time Father Amyotrophic lateral sclerosis cinthia Not available 06/12 13:20:38 Mother Myocardial infarction cinthia Not available 05/31 13:20:38 Sister Diabetes mellitus icnthia Not available 06/12 13:20:38 Brother Parkinson's disease cinthia Not available 06/12 13:20:38 Maternal Aunt Malignant tumor of colon x2 nydia Not available 06/12 13:20:38 Medical History Condition Response Heart Problems N Other Y Breast Cancer N Kidney or Bladder Problems N Thyroid Problems N Depression N Lung Disease N GI Problems N Acne N Breast [...] dose or 50 mcg/0.25mL dose 1 completed Meliton Major [place], [place] [facility] 06/21/2024 11:51:53 COVID-19, mRNA, LNP-S, PF, 100 mcg/0.5mL dose or 50 mcg/0.25mL dose 1 completed Meliton [place] [facility] 06/21/2024 11:51:53 COVID-19, mRNA, LNP-S, PF, 100 mcg/0.5mL dose or 50 mcg/0.25mL dose 1 completed Meliton [place] [facility] 06/21/2024 11:51:53 pneumococcal polysaccharide PPV23 0 completed Meliton [place] [facility] 06/21/2024 11:51:53 Pneumococcal conjugate PCV 13 9 completed SAUL [place] [facility] 06/21/2024 11:51:53 Influenza, high-dose, trivalent, PF 8 completed Meliton [place] [facility] 06/21/2024 11:51:53 Influenza, high-dose, trivalent, PF 5 completed Bar Rey MD Attn: Accounting,[address] [place], [address], [place] [facility] 10/02/2024 18:37:40 Past Encounters Encounter ID Performer Location Encounter Start Date Encounter Closed Date Diagnosis/Indication Diagnosis SNOMED-CT Code Diagnosis ICD10 Code Diagnosis Note [id number] [facility]EN[facility]REAS[facility]Y ANALYST) [address] [place] [phone] 06/12/2015 11:30:17 06/12/2015 13:22:13 Menopausal syndrome 358970511 N95.9 Screening for malignant neoplasm of breast 455856158 Z12.39 Cystocele 525704304 N81. 10 Bladder mu scle dysfunction - overactive 014020846 N32.81 [id number] MD Andriy Morales (Adult Med) [address] [place] [phone] 11/16/2023 10:10:26 11/16/2023 11:24:09 Type 2 diabetes mellitus 44587018 E11.9 Hyperlipidemia 34961340 E78.5 Long-term drug therapy 033739452 Z79.899 Dysuria 59950991 R30.0 [id number] Bar Rey MD Andriy (Adult Med) [address] [place] [phone] 05/10/2024 10:27:13 05/10/2024 11:41:17 Muscle weakness 69895122 M62.81 Fatigue 87132144 R53.83 Pain of joint 51867534 M 25.50 Hyperlipidemia 52268282 E78.5 [id number] Bar Rey MD Andriy (Adult Med) [address] [place] [phone] 06/21/2024 11:02:08 06/21/2024 12:48:57 Muscle weakness 24136032 M62.81 Hyperlipidemia 19844346 E78.5 Type 2 tej betes mellitus 81036745 E11.9 [id number] Bar Rey MD [facility]y [facility] (Adult Med) [address] [place] [id number] 09/27/2024 10:04:52 09/27/2024 12:02:30 Body mass index 20-24 - normal 629131726 Z68.24 Administra tion of influenza vaccine 77338123 Z23 Hyperlipidemia 55314624 E78.5 Type 2 tej betes mellitus 44025406 E11.9 [id number] Bar Rey MD [facility] (Adult Med) [address] [place] [phone] 01/06/2025 11:17:06 01/06/2025 13:07:23 Normal weight 33303068 Z68.24 Overweight 695949221 E66 .3 Type 2 tej betes mellitus 17727883 E11.9 Hyperlipidemia 62804395 E78.5 Polyneuropathy 59097498 G62.9 Health Concerns Section Related Observation LastModified by Organization Detai ls LastModified Time None Recorded Concern Status LastModified by Organization Details LastModified Time None Recorded Advance Directives Directive Y: Payers Insurance Date Sequence Insurance Name Policy Number Policy Metcalf Covered Member ID Metcalf Member ID Guarantor Name 11/16/2023 1 [place] Mariia Riley [id number] aMriia Riley 11/16/2023 [place] [facility] Mariia Riley [id number] Mariia Riley 11/16/2023 1 HOA Riley [id number] Mariia Riley 01/09/2025 1 [facility] (MEDICARE REPLACEMENT/A DVANTAGE - HMO) [id number] Mariia Riley [id number] Mariia Riley Notes Date Note Type Note Provider Name and Address Organization Details Recorded Time 11/16/2023 text/html Diabetes does no t take sugars regularly but no polyphagia or polydipsia hyperlipidemia needs to be checked she been having some dysuria for about a week with frequency and urgency no back pain no nausea vomiting fever or chills Bar Rey MD Attn: Accounting, [address] [place], [address], [facility] - [facility] 11/29/2023 16:34:47 05/10/2024 text/html at times she fee ls like her muscles are weak. A little bit of fatigue as well. She has had some nonspecific joint pain as well. Bar Rey MD Attn: Accounting, [address] [facility], [place], [address], [facility] - [facility] 05/29/2024 12:08:37 06/21/2024 text/html just says that s he feels weak we stopped the atorvastatin maybe she had a little bit of relief not sure. She does not have any problems holding arms above her head for long periods of time Bar Rey MD Attn: Accounting, [address] [facility], [place], [address], [place] [facility] 07/03/2024 12:09:41 09/27/2024 text/html still feels weak and has ill described episodes where she just has trouble walking she was seen neurology in the past Bar Rey MD Attn: Accounting, [address] [place], [address], [facility] - [facility] 10/02/2024 18:43:27 01/06/2025 text/html Diabetes trying to watch diet last A1c 6.6 hypertension has been controlled with conservative measures polyneuropathy working with Neurology about this no definitive diagnosis has been made she is having to get around with a walker now. Bar Rey MD Attn: Accounting,[address] , [place], [address], [place] [facility] 01/07/2025 18:27:49 OBGyn Episode Ob Episode Information Episode Created Date Number of Fetuses Patient Bloodtype Patient rh Status Prepregnancy Weight lbs Domestic Partner Domestic Partner Phone Father Name Facilities Engineering Manager Status 06/12/20 15 1 CLOSED Fetus Data First Name Last Name Admitted to NICU Weight (g) Sex Living Outcome Pediatric Complications Fetus ID Race Codes Race Delivery Type 3515.33 8 F Full Term [id number] Vaginal Joce Calculation Initial Joce Date Initial [...] Domestic Partner Domestic Partner Phone Father Name Facilities Engineering Manager Status 06/12/20 15 1 CLOSED Fetus Data First Name Last Name Admitted to NICU Weight (g) Sex Living Outcome Pediatric Complications Fetus ID Race Codes Race Delivery Type 3940.58 05 M Full Term [id number] Vaginal Joce Calculation Initial Joce Date Initial [...]
--- OUTSIDE RECORDS SUMMARY | 2025-03-17 11:08 | XMS_ITS | Clinical Summary ---
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 Temperature 36.7 C (98.1 F) 11/02/2012 11:37 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 Respiratory Rate - - Oxygen Saturation 97% 08/08/2022 10:42 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 Inhaled Oxygen Concentration - - Weight 71.5 kg (157 lb 9.6 oz) 08/08/2022 10:42 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 Height 167.6 cm (5' 5.98) 08/08/2022 10:[address] Body Mass Index 25.45 08/08/2022 10:42 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 Plan of Treatment Health Maintenance Due Date Last Done Comments Depression Screening 1945 Fall Risk Assessment 1945 Hepatitis C Screening 1945 Osteoporosis Screening-Bone Density Scan 1945 DTaP/Tdap/Td Vaccine (1 - Tdap) 1958 Hepatitis B Screening 1965 Well Visit 65+ 2012 Zoster Vaccine (2 of 2) 12/30/2018 11/04/2018 Covid-19 Vaccine ( season) 2024 06/21/2021, 11/20/2020, 10/23/2020 Influenza Vaccine (Season Ended) 2025 06/21/2021, 07/01/2020, 06/29/2018 Pneumococcal vaccine 65+ Completed 03/26/2020, 0302/2019 Insurance [facility] MDCR HMO REF Care Teams Leveler Relationship Specialty Start Date End Date Gautam Rey MD PCP - General Internal Medicine 06/09/22
--- OUTSIDE RECORDS SUMMARY | 2025-03-17 11:08 | XMS_ITS | Data Portability ---
Author Organization ID - [facility] [employer], Main Office Address [address] [place] [address] Care Team Providers [employer] Worker Name Role Phone BAR REY Primary Care Provider BAR REY Referring Provider Assessment Encounter Date Assessment Date Assessment LastModified by Organization Details LastModified Time 05/18/2023 05/18/2023 Blood work urine diet exercise questions all answered follow-up 4 months [email or web address] Not available 06/14/2023 14:30:00 12/22/2023 12/22/2023 78-year-old [...] None recorded. Lab urinalysis, microscopic 2022 023 [email or web address] [facility] (Lab), [address] [place], [address], 4 18:30:19 HbA1c (hemoglobin A1c), blood 2022 023 [facility] (Lab), [address] [place], [address], 4 18:30:19 CBC w/ auto diff 2022 023 [facility] (Lab), [address] [place], [address], 3 16:52:12 T3, free, serum or plasma 2022 023 [email or web address] [facility] (Lab), [address] [place], [address], 3 16:52:12 T4, free, serum [address] (Lab), [address] [place], [address], 3 16:52:12 TSH, serum or plasma [address] (Lab), [address] [place], [address], 3 16:52:12 lipid panel, serum [address] (Lab), [address] [place], [address], 3 16:52:12 CMP, serum or plasma [address] (Lab), [address] [place], [address], 3 16:52:12 Referral None recorded. Procedures None recorded. Surgeries None recorded. Imaging XR, wrist, 3 or more view 2023 024 [facility] [place], [address], [place], [address], 4 14:08:14 XR, wrist, 3 or more view 2023 024 [facility] [place], [address], [place], [address], 4 00:17:19 Medication Orders None recorded. Patient TargetsNo targets recorded. Patient InstructionsNo instructions recorded. Reason for Referral None Reported. Results Created Date Observation Date Name Description Value Unit Range Abnormal Flag Note LastModifiedBy Organization Detail LastModifiedTime 05/18/20 23 05/18/2023 URINE MICRO SCOPI C EXAM/ IRIS white blood cells PACKED /i??h pfi?? 0-8 abnormal Not Available [facility] (Lab) [address] [place], [address], 05/18/2023 14:42:21 05/18/20 23 05/18/2023 URINE MICRO SCOPI C EXAM/ IRIS white blood cell clumps MANY /i??h pfi?? none seen- abnormal Not Available [facility] (Lab) [address] [place], [address], 05/18/2023 14:42:21 05/18/20 23 05/18/2023 URINE MICRO SCOPI C EXAM/ IRIS red blood cells 0-4 /i??h pfi?? 0-4 Not Available [facility] (Lab) [address] [place], [address], 05/18/2023 14:42:21 05/18/20 23 05/18/2023 URINE MICRO SCOPI C EXAM/ IRIS bacteria FEW abnormal Not Available [facility] (Lab) [address] [place], [address], 05/18/2023 14:42:21 05/18/20 23 05/18/2023 URINE MICRO SCOPI C EXAM/ IRIS mucous OCCASI ONAL /i??l pfi?? abnormal Not Available [facility] (Lab) [address] [place], [address], 05/18/2023 14:42:21 05/18/20 23 05/18/2023 URINE MICRO SCOPI C EXAM/ IRIS squamous epithelial FEW /i??l pfi?? abnormal Not Available [facility] (Lab) [address] [place], [address], 05/18/2023 14:42:21 05/18/20 23 05/18/2023 URINE MICRO SCOPI C EXAM/ IRIS amorphous crystal MODERA TE /i??h pfi?? abnormal Not Available [facility] (Lab) [address] [place], [address], 05/18/2023 14:42:21 05/18/20 23 05/18/2023 CBC/C OMPLE TE BLD COUNT W/DIF F white blood cells 6.1 x10'3 /uL 4.2-10 .8 Not Available [facility] (Lab) [address] [place], [address], 05/18/2023 15:28:27 05/18/20 23 05/18/2023 CBC/C OMPLE TE BLD COUNT W/DIF F red blood cells 4.72 x10'6 /uL 3.80-5 .20 Not Available [facility] (Lab) [address] [place], [address], 05/18/2023 15:28:27 05/18/20 23 05/18/2023 CBC/C OMPLE TE BLD COUNT W/DIF F hemoglobin 13.5 g/dL 12.0-1 5.6 Not Available [facility] (Lab) [address] [place], [address], 05/18/2023 15:28:27 05/18/20 23 05/18/2023 CBC/C OMPLE TE BLD COUNT W/DIF F hematocrit 41.7 % 35.7-4 5.7 Not Available [facility] (Lab) [address] [place], [address], 05/18/2023 15:28:27 05/18/20 23 05/18/2023 CBC/C OMPLE TE BLD COUNT W/DIF F mean red cell volume 88.3 fL 82.0-9 9.0 Not Available [facility] (Lab) [address] [place], [address], 05/18/2023 15:28:27 05/18/20 23 05/18/2023 CBC/C OMPLE TE BLD COUNT W/DIF F mean red cell hemoglobin 28.6 pg 27.0-3 3.0 Not Available [facility] (Lab) [address] [place], [address], 05/18/2023 15:28:27 05/18/20 23 05/18/2023 CBC/C OMPLE TE BLD COUNT W/DIF F mean RBC HGB concentratio n 32.4 g/dL 31.0-3 6.0 Not Available [facility] (Lab) [address] [place], [address], 05/18/2023 15:28:27 05/18/20 23 05/18/2023 CBC/C OMPLE TE BLD COUNT W/DIF F red cell distribution width 12.7 % 11.8-1 5.5 Not Available [facility] (Lab) [address] [place], [address], 05/18/2023 15:28:27 05/18/20 23 05/18/2023 CBC/C OMPLE TE BLD COUNT W/DIF F platelets 171 x10'3 /uL 150-40 0 Not Available [facility] (Lab) [address] [place], [address], 05/18/2023 15:28:27 05/18/20 23 05/18/2023 CBC/C OMPLE TE BLD COUNT W/DIF F mean platelet volume 11.3 fL 9.0-12 .4 Not Available [facility] (Lab) [address] [place], [address], 05/18/2023 15:28:27 05/18/20 23 05/18/2023 CBC/C OMPLE TE BLD COUNT W/DIF F neutrophils 66.6 % 39.0-7 2.0 Not Available [facility] (Lab) [address] [place], [address], 05/18/2023 15:28:27 05/18/20 23 05/18/2023 CBC/C OMPLE TE BLD COUNT W/DIF F lymphocytes 23.9 % 16.0-4 7.0 Not Available [facility] (Lab) [address] [place], [address], 05/18/2023 15:28:27 05/18/20 23 05/18/2023 CBC/C OMPLE TE BLD COUNT W/DIF F monocytes 6.9 % 5.0-12 .0 Not Available [facility] (Lab) [address] [place], [address], 05/18/2023 15:28:27 05/18/20 23 05/18/2023 CBC/C OMPLE TE BLD COUNT W/DIF F eosinophils 1.5 % 1.0-7. 0 Not Available [facility] (Lab) [address] [place], [address], 05/18/2023 15:28:27 05/18/20 23 05/18/2023 CBC/C OMPLE TE BLD COUNT W/DIF F basophils 0.8 % 0.0-2. 0 Not Available [facility] (Lab) [address] [place], [address], 05/18/2023 15:28:27 05/18/20 23 05/18/2023 CBC/C OMPLE TE BLD COUNT W/DIF F immature granulocytes 0.3 % 0.00-0 .50 Not Available [facility] (Lab) [address] [place], [address], 05/18/2023 15:28:27 05/18/20 23 05/18/2023 CBC/C OMPLE TE BLD COUNT W/DIF F neutrophils, absolute count 4.07 x10'3 /uL 1.5-8. 0 Not Available [facility] (Lab) [address] [place], [address], 05/18/2023 15:28:27 05/18/20 23 05/18/2023 CBC/C OMPLE TE BLD COUNT W/DIF F lymphocytes, absolute count 1.46 x10'3 /uL 1.07-3 .43 Not Available [facility] (Lab) [address] [place], [address], 05/18/2023 15:28:27 05/18/20 23 05/18/2023 CBC/C OMPLE TE BLD COUNT W/DIF F monocytes, absolute count 0.42 x10'3 /uL 0.29-0 .99 Not Available [facility] (Lab) [address] [place], [address], 05/18/2023 15:28:27 05/18/20 23 05/18/2023 CBC/C OMPLE TE BLD COUNT W/DIF F eosinophils, absolute count 0.09 x10'3 /uL 0.02-0 .53 Not Available [facility] (Lab) [address] [place], [address], 05/18/2023 15:28:27 05/18/20 23 05/18/2023 CBC/C OMPLE TE BLD COUNT W/DIF F basophils, absolute count 0.05 x10'3 /uL 0.01-0 .08 Not Available [facility] (Lab) [address] [place], [address], 05/18/2023 15:28:27 05/18/20 23 05/18/2023 CBC/C OMPLE TE BLD COUNT W/DIF F immature granulocytes ,absolute 0.02 x10'3 /uL 0.00-0 .05 Not Available [facility] (Lab) [address] [place], [address], 05/18/2023 15:28:27 05/18/2005/18/2023 CBC/C OMPLE TE BLD COUNT W/DIF F nucleated red blood cells 0.0 % -0 Not Available [facility] (Lab) [address] [place], [address], 05/18/2023 15:28:27 05/18/20 23 05/18/2023 CBC/C OMPLE TE BLD COUNT W/DIF F NRBC# 0.00 x10'3 /uL Not Available [facility] (Lab) [address] [place], [address], 05/18/2023 15:28:27 05/18/20 23 05/18/2023 T3 FREE free T3 3.2 pg/mL 2.77-5 .27 Not Available [facility] (Lab) [address] [place], [address], 05/18/2023 20:09:30 05/18/20 23 05/18/2023 T4 FREE free T4 1.09 NG/dL 0.78-2 .19 Not Available [facility] (Lab) [address] [place], [address], 05/18/2023 18:12:38 05/18/20 23 05/18/2023 TSH thyroid-stim ulating hormone 0.644 uIU/m L 0.465- 4.680 Not Available [facility] (Lab) [address] [place], [address], 05/18/2023 16:00:40 05/18/20 23 05/18/2023 HEMOG LOBIN A1C HA1C 6.6 % 4.0-6. 0 high Diabe stephanie Scree boogie Crite ayush: <5.7% Consi stent with absen ce of diabe stephanie 5.7-6 .4% Consi stent with incre ased risk for diabe stephanie (pred iabet es) >OR=6 .5% Consi stent with diabe stephanie REFER ENCE: Diabe stephanie Care 2016, 39(Brewer ppl.1 ):s13 -s22 Not Available [facility] (Lab) [address] [place], [address], 05/18/2023 15:39:40 05/18/20 23 05/18/2023 LIPID PANEL cholesterol 166 mg/dL 140-19 9 NIH BALBIR NSUS RECOM MENDA TION FOR BHUPINDER STERO L: ADULT CHILD LOW RISK: <200 <170 BORDE RLINE : <200- 239 ----- HIGH RISK: >240 >200 Not Available [facility] (Lab) [address] [place], [address], 05/18/2023 16:05:58 05/18/20 23 05/18/2023 LIPID PANEL triglyceride s 198 mg/dL 0-150 high NIH BALBIR NSUS REPOR T RECOM MENDA TION FOR TRIGL YCERI CLARE: ADULT CHILD LOW RISK: <150 ----- BODER LINE: 150-1 99 ----- HIGH RISK: >200 ----- Not Available [facility] (Lab) [address] [place], [address], 05/18/2023 16:05:58 05/18/20 23 05/18/2023 LIPID PANEL HDL cholesterol 61 mg/dL 40- Not Available [facility] (Lab) [address] [place], [address], 05/18/2023 16:05:58 05/18/20 23 05/18/2023 LIPID PANEL [...] WILL NOT BE REPOR LINDY. Not Available [facility] (Lab) [address] [place], [address], 05/18/2023 16:05:58 05/18/20 23 05/18/2023 COMPR EHENS ROSA ELENA METAB OLIC PANEL sodium 138 mmol/ L 137-14 5 Not Available [facility] (Lab) [address] [place], [address], 05/18/2023 16:06:09 05/18/20 23 05/18/2023 COMPR EHENS ROSA ELENA METAB OLIC PANEL potassium 4.6 mmol/ L 3.5-5. 1 Not Available [facility] (Lab) [address] [place], [address], 05/18/2023 16:06:09 05/18/20 23 05/18/2023 COMPR EHENS ROSA ELENA METAB OLIC PANEL chloride 102 mmol/ L 98-107 Not Available [facility] (Lab) [address] [place], [address], 05/18/2023 16:06:09 05/18/20 23 05/18/2023 COMPR EHENS ROSA ELENA METAB OLIC PANEL carbon dioxide 29 mmol/ L 22-30 Not Available [facility] (Lab) [address] [place], [address], 05/18/2023 16:06:09 05/18/20 23 05/18/2023 COMPR EHENS ROSA ELENA METAB OLIC PANEL anion gap 11.6 mmol/ L 14-22 low Not Available [facility] (Lab) [address] [place], [address], 05/18/2023 16:06:09 05/18/20 23 05/18/2023 COMPR EHENS ROSA ELENA METAB OLIC PANEL glucose 100 mg/dL 70-99 high Not Available [facility] (Lab) [address] [place], [address], 05/18/2023 16:06:09 05/18/20 23 05/18/2023 COMPR EHENS ROSA ELENA METAB OLIC PANEL BUN 9 mg/dL 8-19 Not Available [facility] (Lab) [address] [place], [address], 05/18/2023 16:06:09 05/18/20 23 05/18/2023 COMPR EHENS ROSA ELENA METAB OLIC PANEL creatinine 0.68 mg/dL 0.66-1 .25 Not Available [facility] (Lab) [address] [place], [address], 05/18/2023 16:06:09 05/18/20 23 05/18/2023 COMPR EHENS ROSA ELENA METAB OLIC PANEL GFR >60 Refer ence Range : Stilwell ge GFR Healt hy Adult : >60 [...] or ethni c subgr oups, such as Hisid nics. Outsi de the valid ated elva [...] is avail able on the [facility] websi te: [email or web address] :[email or web address] [email or web address].[email or web address] rg/pr ofess ional s/kdo qi/gf r_cal culat or Not Available [facility] (Lab) [address] [place], [address], 05/18/2023 16:06:09 05/18/2005/18/2023 COMPR EHENS ROSA ELENA METAB OLIC PANEL alkaline phosphatase 92 U/L 38-126 Not Available [facility] (Lab) [address] [place], [address], 05/18/2023 16:06:09 05/18/20 23 05/18/2023 COMPR EHENS ROSA ELENA METAB OLIC PANEL alanine aminotransfe rase 30 U/L 0-35 Not Available [facility] (Lab) [address] [place], [address], 05/18/2023 16:06:09 05/18/20 23 05/18/2023 COMPR EHENS ROSA ELENA METAB OLIC PANEL aspartate aminotransfe rase 32 U/L 15-37 Not Available [facility] (Lab) [address] [place], [address], 05/18/2023 16:06:09 05/18/20 23 05/18/2023 COMPR EHENS ROSA ELENA METAB OLIC PANEL bilirubin, total 0.60 mg/dL 0.20-1 .30 Not Available [facility] (Lab) [address] [place], [address], 05/18/2023 16:06:09 05/18/20 23 05/18/2023 COMPR EHENS ROSA ELENA METAB OLIC PANEL calcium 10.8 mg/dL 8.4-10 .2 high Not Available [facility] (Lab) [address] [place], [address], 05/18/2023 16:06:09 05/18/20 23 05/18/2023 COMPR EHENS ROSA ELENA METAB OLIC PANEL total protein 7.0 g/dL 6.3-8. 2 Not Available [facility] (Lab) [address] [place], [address], 05/18/2023 16:06:09 05/18/20 23 05/18/2023 COMPR EHENS ROSA ELENA METAB OLIC PANEL albumin 4.3 g/dL 3.0-4. 4 Not Available [facility] (Lab) [address] [place], [address], 05/18/2023 16:06:09 05/18/20 23 05/18/2023 COMPR EHENS ROSA ELENA METAB OLIC PANEL globulin 2.7 g/dL 2.6-4. 2 Not Available [facility] (Lab) [address] [place], [address], 05/18/2023 16:06:09 05/18/20 23 05/18/2023 COMPR EHENS ROSA ELENA METAB OLIC PANEL A/G ratio 1.6 ratio 1.0-2. 0 Not Available [facility] (Lab) [address] [place], [address], 05/18/2023 16:06:09 07/07/20 23 07/07/2023 MAMMO , scree boogie, digit al, bilat eral [facility] [address] [place] [address] Patien t Name: DIOGENES WaltTOBI Sheyla Access ion #: [id number] Sex: F : 1944 6 Dictat [...] at 2022 10:52: 06 AM Page 1 [email or web address] (Im[facility] [address] [place], [address], 09/30/2023 11:09:21 12/21/19 24 12/20/2023 XR, wrist , 3 or more view No observ ation record ed. [email or web address] Not Available 11/30 14:30:11 12/29/19 24 12/29/2023 RF, elsie nce No observ ation record ed. [email or web address] [facility] [address] [place], [address], 12/30/2023 07:05:11 01/27/20 XR, wrist , 3 or more view No observ ation record ed. [email or web address] [facility] [place] [address], [place], [address], 01/27/2024 11:10:53 01/28/20 24 01/28/2024 DEXA, axial skele ton [facility] [address] [place] [address] [phone] Patien t Name: NAPOLEONANI Walt TOBI Carrion Access ion #: [id number] Sex: F : 1944 5 Dictat ed By: Yon solano Attend ing Physic lashae: [facility]ashae: YON REY Exam Date: 2023 09:39 AM Exam Name: XR DEXA-H IPS PELVIS SPINE Admitt ing Diagno sis(es ): CLINIC AL HISTOR Y: Postme nopaus al screen ing for osteop orosis . TECHNI QUE: The study was perfor med using a Iterate Studio Unit. Lumbar spine and proxim al femora [...] 2023 10:51: 38 AM Page 1 [email or web address] [facility] (Imaging) [address] [place], [address], 03/15/2024 10:15:56 02/10/20 24 XR, wrist , 3 or more view No observ ation record ed. [email or web address] [facility] [place] [address], [place], [address], 02/10/2024 09:41:26 Result Notes Documentation Provider Name and Address Organization Details Recorded Time Mammo, Screening, Digital, Bilateral : [facility] [address] [place], [place] [id number] Patient Name: JESSI RILEY Sex: F : 1945 Dictated By: Evangelina Cantu Attending Physician: BAR REY Ordering Physician: BAR REY Exam Date: 07/07/2023 09:31 AM Exam Name: MG SCRN BREAST RICKY BILAT Admitting Diagnosis(es): SCREENING MAMMOGRAM WITH TOMOSYNTHESIS: REASON FOR EXAM: routine mammogram COMPARISON:07/02/2022; 06/17/2022 TECHNIQUE: Bilateral CC and MLO views obtained. Images were obtained using a Digital Tomosynthesis Unit. Standard 2D and 3D Tomosynthesis images were reviewed. FINDINGS: BREAST COMPOSITION: The bilateral breasts are heterogeneously dense, which may obscure small masses. In the right breast, no asymmetrical parenchymal pattern, architectural distortion, pleomorphic microcalcifications or masses. In the left breast, no asymmetrical parenchymal pattern, architectural distortion, pleomorphic microcalcifications or masses. IMPRESSION: No findings of malignancy. Recommend annual mammogram. BIRADS: 2 - Benign Page 1 ELIANE [place] - [facility] 09/30/2023 11:09:21 Dexa, Axial Skeleton : [address] [address] Patient Name: JESSI RILEY Sex: F : 1945 Dictated By: Bar Araiza Attending Physician: BAR REY Ordering Physician: BAR REY Exam Date: 01/28/2024 09:39 AM Exam Name: XR DEXA-HIPS PELVIS SPINE Admitting Diagnosis(es): CLINICAL HISTORY: Postmenopausal screening for osteoporosis. TECHNIQUE: The study was performed using a Iterate Studio Unit. Lumbar spine and proximal femoral evaluations were evaluated in the frontal projections. COMPARISON: Prior DEXA scan dated 11/28/2021. FINDINGS: L1-L4 demonstrates a bone mineral density of 1.124 g/cm2 with a T-score of -0.6, within normal limits. There is been a 7.4% interval increase in bone mineral density in the lumbar spine compared to the prior exam. Left femoral neck evaluation demonstrates a bone mineral density of 0.733 g/cm2 with a T-score of -2.2, consistent with osteopenia. Right femoral neck evaluation demonstrates a bone mineral density of 0.718 g/cm2 with a T-score of -2.3 consistent with osteopenia. There has been a 3.5% interval decrease in bone mineral density in the total mean proximal femora compared to the prior exam. Estimated total body fat is 47.4%. BMI is 24.3, within the normal range. IMPRESSION: Bone mineral density is consistent with osteopenia based on lowest T score as detailed above. Page 1 Steffi Amado APRN [address] [facility], [facility] [address], [place], [address], [facility] [employer] [facility] 03/15/2024 10:15:56 Problems Name Problem SNOMED Code Status Onset Date Resolution Date Notes Provider Name and Address Organization Details Recorded Time Hyperlipid emia 13833845 Active 2017 Not Available [facility] 3 05:44:44 Insomnia 299785226 Active 2018 Not Available [facility] 3 05:44:44 Adhesive capsulitis of left shoulder 3149618705622 07 Active 2019 Not Available [facility] 3 05:44:44 Polyp of colon 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 Active 2021 Not Available [facility] 3 05:44:45 Closed trimalleol ar fracture of left ankle 3325726055953 9102 Active 2021 Not Available [facility] 3 05:44:44 Closed trimalleol ar fracture 9269621 Active 2021 Not Available [facility] 3 05:44:45 Vertigo 511495177 Active 2021 Not Available [facility] 3 05:44:44 Dizziness 021009811 Active 2021 Not Available [facility] 3 05:44:44 Mammograph y abnormal 707554666 Active 2021 Not Available [facility] 3 05:44:44 Hyperglyce pacheco 03082409 Active 2021 Not Available [facility] 3 05:44:45 Type 2 diabetes mellitus without complicati on 938581589 Active 2021 Not Available [facility] 3 05:44:44 Fatigue 42175993 Active 2022 Not Available [facility] 3 05:44:45 Diabetes mellitus 06533593 Active 2022 Not Available [facility] 3 05:44:45 Type 2 diabetes mellitus 76233893 Active 2022 Not Available [facility] 3 05:44:44 Acute urinary tract infection 180799971 Active 2022 Not Available [facility] 3 05:44:44 Essential hypertensi on 58432765 Active 2022 Not Available [facility] 3 05:44:45 Dysuria 53942749 Active 2022 Not Available [facility] 3 05:44:44 Pain of right wrist 3748714379825 00 Active 2023 ELIANE Coronel [place] - Respi 4 09:26:09 Problem Notes None recorded. Procedures Surgical History Date Name Laterality Status Provider Name and Address Organization Details Recorded Time 4 open reduction of fracture with internal fixation completed ELIANE Coronel [employer] 02/08/2024 08:02:13 2 Ankle Surgery completed Not Available [facility] 2022 05:58:17 2 Most Recent Bone Density completed Not Available [facility] 10/29/2022 05:58:13 2 Ankle Surgery completed Not Available [facility] 2022 05:58:17 Eye Surgery completed Not Available [facility] 10/29/2022 05:58:17 Imaging Results None recorded. Procedure Notes None recorded. Medical Equipment None Reported. Allergies Allergen ID Allergen Name Allergen Category Reaction Reaction Severity Criticality Documentation Date Start Date Code Code System Note Provider Name and Address Organization Details Recorded Time 79852 trazodone medicatio n other Not available Not available 10/29/2022 64250 RxNorm restl ess legs Not Available [facility] 3 06:17:42 25059 omeprazol e medicatio n Not available Not available Not available 10/29/2022 7646 RxNorm worse dned acid reflu x Not Available [facility] 3 06:17:42 72405 Lexapro medicatio n Not available Not available Not available 10/29/2022 50510 1 RxNorm GI upset Not Available [facility] 3 06:17:42 13024 Benadryl medicatio n other Not available Not available 10/29/2022 73747 7 RxNorm hyper activ ity Not Available [facility] 3 06:17:42 25537 Belsomra medicatio n insomnia Not available Not available 10/29/2022 98512 05 RxNorm Not Available [facility] 3 06:17:43 Medications Name Sig Start [...] administ ered by the provider 12/29 completed NDC: 0003-049 4-20 Not Available Not Available Not [...] Not Available Not Available [employer] [facility] 1-2 hs 09/10 completed Not Available Not Available Not Available Doxylamin e Succinate (Sleep) 01/12 completed Not Available Not Available Not Available multivita min 12/26 completed Not Available Not Available Not Available Complete Multivita min 05/18 completed Not Available Not Available Not Available lidocaine (PF) 10 mg/mL (1 %) injection solution In office injectio n administ ered by the provider 12/[address] [facility]: 0409-427 6-17 Not Available Not Available [...] Not Available Not Available Not Available [employer] [place] 09/22 completed Not Available Not [...] height Body mass index (BMI) Body weight Provider Name and Address Organization Details Last Updated DateTime 12/22/2023 170.18 cm 24.6 kg/m2 28116 alden ELIANE Coronel [facility] 12/22/2023 09:25:04 Date Recorded Body height Body mass index (BMI) Body weight Provider Name and Address Organization Details Last Updated DateTime 01/13/2024 170.18 cm 24.6 kg/m2 28918 ELIANE Lyle [facility] 01/13/2024 10:09:50 Date Recorded Body height Body mass index (BMI) Body weight Provider Name and Address Organization Details Last Updated DateTime 01/27/2024 170.18 cm 24.3 kg/m2 [address]30.[address] [facility] 01/27/2024 11:10:02 Date Recorded Body height Body mass index (BMI) Body weight Provider Name and Address Organization Details Last Updated DateTime 02/10/2024 170.18 cm 24.3 kg/m2 15717.[address] [facility] 02/10/2024 09:40:37 Date Recorded Body height Body mass index (BMI) Body weight Body temperature Heart rate Systolic And Diastolic Provider Name and Address Organization Details Last Updated DateTime 170.18 cm 24.6 kg/m2 39005 g 98.2 [degF] 84 /min 124/72 mm[Hg] Ursula Douglass [facility] 10:52:31 Social History Question Answer Notes LastModified by Organization Details LastModified Time Tobacco Smoking Status Never Smoker Not Available [facility] 10/29/2022 05:57:35 Do You Have An Advance Directive? Yes MIGRATION.0301 [id number] Information not available 10/29/2022 Are You Blind Or Do You Have Difficulty Seeing? Yes Wears Glasses MIGRATION.030 [id number] Information not available 10/29/2022 What Is Your Level Of Caffeine Consumption? Moderate MIGRATION.0301 [id number] Information not available 10/29/2022 How Much Tobacco Do You Chew? None MIGRATION.0301 718005 Information not available 10/29/2022 In The 14 Days Before Symptom Onset, Have You Had Close Contact With A Laboratory-confi rmed COVID-19 While That Case Was Ill? No MIGRATION.0301 [id number] Information not available 10/29/2022 In The 14 Days Before Symptom Onset, Have You Had Close Contact With A Person Who Is Under Investigation For COVID-19 While That Person Was Ill? No MIGRATION.0301 570617 Information not available 10/29/2022 Are You Deaf Or Do You Have Serious Difficulty Hearing? No MIGRATION.0301 419739 Information not available 10/29/2022 What Type Of Diet Are You Following? REGULAR MIGRATION.0301 100247 Information not available 10/29/2022 Which Illicit Or Recreational Drugs Have You Used? None MIGRATION.0301 024094 Information not available 10/29/2022 What Is The Highest Grade Or Level Of School You Have Completed Or The Highest Degree You Have Received? [id number] MIGRATION.0301 291301 Information not available 10/29/2022 Have There Been Any Changes To Your Family Or Social Situation? No MIGRATION.0301 782789 Information not available 10/29/2022 What Is The Fluoride Status Of Your Home? Unknown MIGRATION.0301 019586 Information not available 10/29/2022 Are There Any Guns Present In Your Home? No MIGRATION.0301 272512 Information not available 10/29/2022 Do You Use Insect Repellent Routinely? No MIGRATION.0301 695538 Information not available 10/29/2022 Where Do You Live? 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 Yes MIGRATION.0301 794217 Information not available 10/29/2022 What Was The Date Of Your Most Recent Tobacco Screening? 05/18/2023 [email or web address] Information not available 05/18/2023 Do You Have Any Pets? Yes MIGRATION.0301 [id number] Information not available 10/29/2022 What Is Your Relationship Status? MIGRATION.0301 706716 Information not available 10/29/2022 Do You Use Your Seat Belt Or Car Seat Routinely? Yes MIGRATION.0301 010628 Information not available 10/29/2022 Do You Have Smoke And Carbon Monoxide Detectors In Your Home? Yes MIGRATION.0301 940241 Information not available 10/29/2022 Are You Passively Exposed To Smoke? No MIGRATION.0301 856251 Information not available 10/29/2022 Are There Any Smokers In Your House? No MIGRATION.0301 310612 Information not available 10/29/2022 How Much Tobacco Do You Smoke? No MIGRATION.0301 361071 Information not available 10/29/2022 What Types Of Sporting Activities Do You Participate In? None MIGRATION.0301 491641 Information not available 10/29/2022 Do You Use Sunscreen Routinely? No MIGRATION.0301 066313 Information not available 10/29/2022 Has Tobacco Cessation Counseling Been Provided? No Not Needed-nev e Smoked MIGRATION.0301 827047 Information not available 10/29/2022 How Many Years Have You Smoked Tobacco? 0 MIGRATION.0301 808134 Information not available 10/29/2022 Have You Recently Traveled Abroad? No MIGRATION.0301 871662 Information not available 10/29/2022 Do You Have Difficulty Walking Or Climbing Stairs? No MIGRATION.0301 063119 Information not available 10/29/2022 Do You Have Any Dietary Restrictions? No MIGRATION.0301 685986 Information not available 10/29/2022 Sex: Female Functional Status Question Answer Note LastModified by [facility] Details LastModified Time Do you use any illicit or recreational drugs? No MIGRATION.352137 2853 Information not available 10/29/2022 Do you or have you ever used any other forms of tobacco or nicotine? No MIGRATION.792324 5700 Information not available 10/29/2022 What is your level of alcohol consumption? None MIGRATION.611632 2488 Information not available 10/29/2022 Do you or have you ever used smokeless tobacco? Never used smokeless tobacco MIGRATION.951152 4045 Information not available 10/29/2022 Do you have transportation difficulties? No MIGRATION.443214 6633 Information not available 10/29/2022 Are you able to walk? YESWOREST MIGRATION.628968 1951 Information not available 10/29/2022 Do you have difficulty doing errands alone? No MIGRATION.305131 5963 Information not available 10/29/2022 Are you able to care for yourself? Yes MIGRATION.535088 4257 Information not available 10/29/2022 What is your occupation? retired MIGRATION.739567 0894 Information not available 10/29/2022 Do you have difficulty dressing or bathing? No MIGRATION.215827 0711 Information not available 10/29/2022 Do you or have you ever used e-cigarettes or vape? Never used electronic cigarettes MIGRATION.446969 7387 Information not available 10/29/2022 What is your exercise level? Occasional MIGRATION.762837 9784 Information not available 10/29/2022 Mental Status Question Answer Note LastModified by [facility] Details LastModified Time Do you feel stressed (tense, restless, nervous, or anxious, or unable to sleep at night)? [id number] MIGRATION.[id number] 26 Information not available 10/29/2022 Do you have difficulty concentrating, remembering or making decisions? No MIGRATION.59793411 26 Information not available 10/29/2022 Family History Relationship Description Onset Age of this Age Resolved Age Notes LastModified by Organization Details LastModified Time Mother Myocardial infarction MIGRATION.382 [id number] Not available 10/29/2022 05:58:24 Mother Basal cell carcinoma of skin MIGRATION.317 [id number] Not available 10/29/2022 05:58:24 Father Diabetes mellitus MIGRATION.571 [id number] Not available 10/29/2022 05:58:24 Father Amyotrophic lateral sclerosis deceas ed MIGRATION.689 [id number] Not available 10/29/2022 05:58:24 Brother Parkinson's disease MIGRATION.801 7019902 Not available 10/29/2022 05:58:24 Medical History Condition [...] HAVE YOU BEEN HOSPITALIZED OR SEEN IN [facility] IN THE PAST YEAR [...] mcg/0.25mL dose 1 completed Not Available [facility] 07/09/2023 05:44:45 COVID-19, mRNA, LNP-S, PF, 100 mcg/0.5mL dose or 50 mcg/0.25mL dose 1 completed Not Available [facility] 07/09/2023 05:44:45 Influenza, high-dose, quadrivalent, PF 0 completed Not Available [facility] 07/09/2023 05:44:45 pneumococcal polysaccharide PPV23 0 completed Not Available [facility] 07/09/2023 05:44:45 zoster live 9 completed Not Available [facility] 07/09/2023 05:44:45 Pneumococcal conjugate PCV 13 9 completed Not Available [facility] 07/09/2023 05:44:45 influenza, unspecified formulation 8 completed Not Available [facility] 07/09/2023 05:44:45 COVID-19, mRNA, LNP-S, PF, 100 mcg/0.5mL dose or 50 mcg/0.25mL dose 1 completed Not Available [facility] 07/09/2023 05:44:45 Influenza, high-dose, quadrivalent, PF 1 completed Not Available [facility] 07/09/2023 05:44:45 Past Encounters Encounter ID Performer Location Encounter Start Date Encounter Closed Date Diagnosis/Indication Diagnosis SNOMED-CT Code Diagnosis ICD10 Code Diagnosis Note [id number] Bar Rey MD [facility] Internal Med [place] 15 2043 Mary Rain, [address] [address] 03/18/2021 00:00:00 03/18/2021 21:49:28 [id number] Bar Rey MD [facility] Internal Med [facility] [address] [address] 09/09/2021 00:00:00 09/09/2021 11:29:51 [id number] Satnam Trejo MD [facility] [address] [address] 11/21/2021 00:00:00 11/21/2021 12:30:01 [id number] MD LAURIE [facility] [address] [address] 12/05/2021 00:00:00 12/05/2021 09:32:05 [id number] Satnam Trejo MD [facility] [address] [address] 12/26/2021 00:00:00 12/26/2021 12:25:10 [id number] Satnam Trejo MD [facility] [address] [address] 01/16/2022 00:00:00 01/16/2022 11:40:35 [id number] Bar Rey MD [facility] Internal Med [facility] [facility] [address] [address] 03/10/2022 00:00:00 03/16/2022 10:37:56 [id number] Bar Rey MD [facility] Internal Med [facility] [address] [address] 06/09/2022 00:00:00 06/09/2022 14:04:06 [id number] Bar Rey MD [facility] Internal Med [facility] [address] [address] 07/14/2022 00:00:00 07/14/2022 22:48:22 [id number] Bar Rey MD [facility] Internal Med [facility] [address] [place] [address] 11/17/2022 10:57:08 11/17/2022 11:50:03 Hyperlipidemia 66290412 E78.5 Type 2 tej betes mellitus without complication 075526125 E11.9 Fatigue 77892338 R53.83 [id number] Bar Rey MD [facility] Internal Med [facility] [address] [place] [address] 05/18/2023 10:38:23 05/18/2023 11:26:27 Hyperlipidemia 47999246 E78.5 Type 2 tej betes mellitus without complication 116104912 E11.9 Essential hypertension 76412689 I10 Dysuria 07072760 R30.0 [id number] Param Monteiro MD [facility] [place] [address] [place] [address] 12/22/2023 09:12:16 12/22/2023 09:42:43 Pain of right wrist [id number] 60698 M25.971 [id number] Param Monteiro MD [facility] [place] [address] [place] [address] 01/13/2024 10:07:37 01/13/2024 10:30:37 Pain of right wrist [id number] 65915 M25.803 [id number] Param Monteiro MD [facility] [place] [address] [place] [address] 01/27/2024 11:07:46 01/27/2024 11:54:15 Pain of right wrist [id number] 30189 M25.792 [id number] Param Monteiro MD [facility] [place] [address] [place] [address] 02/10/2024 09:35:52 02/10/2024 10:17:29 Pain of right wrist [id number] 68391 M25.531 Health Concerns Section Related Observation LastModified by Organization Detai ls LastModified Time None Recorded Concern Status LastModified by Organization Details LastModified Time None Recorded Advance Directives Directive Y: Payers Insurance Date Sequence Insurance Name Policy Number Policy Metcalf Covered Member ID Metcalf Member ID Guarantor Name 02/23/[address] [facility] (MEDICARE REPLACEMENT/A DVANTAGE - HMO) [id number] Jessi Riley [id number] Jessi Riley Notes Date Note Type Note Provider Name and Address Organization Details Recorded Time 05/18/2023 text/html Insomnia about t he same fatigue comes and goes hyperlipidemia tries to watch diet diabetes cannot tolerate metformin. Some dysuria Bar Rey MD [address] [place] [address], [facility] [address], [place], [address], [facility] 06/14/2023 14:30:15 OBGyn Episode No OBEpisode recorded.
--- OUTSIDE RECORDS SUMMARY | 2025-03-17 11:08 | XMS_ITS | Clinical Summary ---
Author Organization [facility] Address [address] [place] [address] Phone Care Team Providers Care Waste Transportation Technician Name Role Phone Gautam Rey MD Primary Care Provider [phone] Nikolas Hector MD Unavailable [phone] Allergies Active Allergy Reactions Criticality Noted Date Comments Diphenhydramine Other (see Comments) 07/08/2024 Nervousness/restless legs Dapagliflozin Diarrhea 07/08/2024 Escitalopram Other (see Comments) 07/08/2024 gerd Metformin Diarrhea 07/08/2024 Omeprazole Other (see Comments) 07/08/2024 Worsened her condition Suvorexant Other (see Comments) 07/08/2024 insomnia Trazodone Other (see Comments) 07/08/2024 Restless legs Medications atorvastatin (LIPITOR) 40 MG Tablet Take 40 mg by mouth daily. 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 Gender Identity Not on file Sexual Orientation [...] 11:25 AM CDT Height 170.2 cm (5' 7) 01/05/2025 11:25 AM CDT Body Mass Index 24.45 01/05/2025 11:25 AM CDT Plan of Treatment Upcoming Encounters Date Type Department Care Team (Late st Contact Info) Description 04/18/2025 11:30 AM CDT Office Visit [facility] [address] [place] [address] Nikolas Hector MD [address] [place] [address] Health Maintenance Due Date Last Done Comments DEXA Bone Density 1945 Hepatitis C Virus (HCV) Screening 1945 TdaP Immunization 1945 Zoster Immunization (2 of 2) 12/30/2018 11/04/2018 Respiratory Syncytial Virus (RSV) Immunization (Adult) (1 - 1-dose 75+ series) 2022 SARS-COV-2 Immunization ( season) 2024 06/21/2021, 11/20/2020, 10/23/2020 Influenza Immunization (#1) 05/01/202509/01, 06/21/2021, 07/01/2020, Additional history exists Pneumococcal Immunization (50+ years) Completed 03/26/2020, 11/04/2018 Hepatitis B Immunization Aged Out No longer [...] Procedure Name Priority Date/Time Associated Diagnosis Comments CMP (COMPREHENSIVE METABOLIC PANEL) Routine 01/07/2025 12:00 AM CDT Polyneuropathy ERYTHROCYTE SEDIMENTATION RATE (ESR) 01/07/2025 12:00 AM CDT COMPLETE BLOOD COUNT (CBC) WITH DIFF 01/07/2025 12:00 AM CDT THYROID STIMULATING HORMONE (TSH) 01/07/2025 12:00 AM CDT VITAMIN B12 01/07/2025 12:00 AM CDT C-REACTIVE PROTEIN (CRP) QUANT 01/07/2025 12:00 AM CDT JORGE SCREEN MULTIPLEX W/REFLEX ASIA 01/07/2025 12:00 AM CDT LAB - MISCELLANEOUS 01/07/2025 1 2:00 AM CDT from Last 3 Months Results * LAB - MISCELLANEOUS (01/07/2025 12:00 AM CDT) 01/07/2025 us Provider Scan CHEMISTRY ORDERABLES Final Resul t SCAN * VITAMIN B12 (01/07/2025 12:00 AM CDT) 01/07/2025 us Provider Scan CHEMISTRY ORDERABLES Final Resul t SCAN * THYROID STIMULATING HORMONE (TSH) (01/07/2025 12:00 AM CDT) 01/07/2025 us Provider Scan CHEMISTRY ORDERABLES Final Resul t Performing Organization Address [facility] de Phone Number SCAN * ERYTHROCYTE SEDIMENTATION RATE (ESR) (01/07/2025 12:00 AM CDT) 01/07/2025 us Provider Scan HEMATOLOGY ORDERABLES Final Resu lt Performing Organization Address [facility] de Phone Number SCAN * CMP (COMPREHENSIVE METABOLIC PANEL) (01/07/2025 12:00 AM CDT) Blood us Nikolas Hector MD CHEMISTRY ORDERABLES Final R esult Performing Organization Address [facility] de Phone Number SCAN * COMPLETE BLOOD COUNT (CBC) WITH DIFF (01/07/2025 12:00 AM CDT) 01/07/2025 us Provider Scan HEMATOLOGY ORDERABLES Final Resu lt Performing Organization Address [facility] de Phone Number SCAN * C-REACTIVE PROTEIN (CRP) QUANT (01/07/2025 12:00 AM CDT) 01/07/2025 us Provider Scan CHEMISTRY ORDERABLES Final Resul t Performing Organization Address [facility] de Phone Number SCAN * JORGE SCREEN MULTIPLEX W/REFLEX ASIA (01/07/2025 12:00 AM CDT) 01/07/2025 us Provider Scan IMMUNOLOGY ORDERABLES Final Resu lt Performing Organization Address [facility] de Phone Number SCAN from Last 3 Months Insurance [place]IC[place] [facility] [place] [id number] Care Teams Waste Transportation Technician Relationship Specialty Start Date End Date Gautam Rye MD [address] [place] [address] PCP - General Internal Medicine 07/08/24 Nikolas Hector MD [address] [place] [address] Consulting Physician Neurology 07/25/24
--- OUTSIDE RECORDS SUMMARY | 2025-03-17 11:08 | XMS_ITS | Referral Summary ---
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 Gender Identity Not on file Sexual Orientation Not on file Last Filed Vital Signs Vital Sign Reading Time Taken Comments Blood Pressure 146/82 08/08/2022 10:42 AM COMMERCIAL FISHER Pulse 99 08/08/2022 10:42 AM COMMERCIAL FISHER Temperature 36.7 C (98.1 F) 11/02/2012 11:37 AM COMMERCIAL FISHER Respiratory Rate - - Oxygen Saturation 97% 08/08/2022 10:42 AM COMMERCIAL FISHER Inhaled Oxygen Concentration - - Weight 71.5 kg (157 lb 9.6 oz) 08/08/2022 10:42 AM COMMERCIAL FISHER Height 167.6 cm (5' 5.98) 08/08/2022 10:42 AM Sean EFRMIN Body Mass Index 25.45 08/08/2022 10:42 AM COMMERCIAL FISHER Plan of Treatment Not on file Insurance MDCR HMO REF Care Teams Logistics Operations Manager Relationship Specialty Start Date End Date Gautam Rey MD PCP - General Internal Medicine 06/09/22
[2025-03-17 11:13] VITALS: BP 132/80; PULSE 76; RESP 16; TEMP 36.6; O2SAT 100
--- NOTE | 2025-03-17 12:30 | ED.LOWEXIN ---
HPI - Extremity Injury (Lower) General Chief Complaint: Extremity Injury, Lower Stated Complaint: R knee pain after a fall 2 weeks ago Time Seen by Provider: 03/17/25 11:07 Source: patient Mode of arrival: ambulatory Limitations: no limitations History of Present Illness HPI Narrative: Patient is a 79-year-old female who presents the ED with report of right knee pain. Patient reports she was recently diagnosed with polyneuropathy, R foot drop. Now requiring RLE brace and walker for assistance with ambulation. She reports she had a fall in the middle of the night on 03/04 and landed onto her R knee at that time. Has been having persistent pain since then, worst in her medial knee. Has been taking ibuprofen w/o much relief. Denies swelling, numbness, other injuries from fall. Related Data Allergies Allergy/AdvReac Type Severity Reaction Status Date / Time No Known Allergies Allergy Unverified 02/04/17 08:35 Review of Systems Review of Systems: All systems reviewed & are unremarkable except as noted in HPI. All systems reviewed & are unremarkable except as noted in HPI and below PMFSH Social History Social History Spiritual care concerns: No Exam Narrative: GENERAL: Well appearing, well-nourished, non-toxic, in no acute distress. HEAD: Normocephalic, atraumatic. RESPIRATORY: Airway patent, respirations nonlabored. CARDIOVASCULAR: Regular rate and rhythm. Pedal pulses intact MUSCULOSKELETAL: Moves all extremities. No gross deformities. No significant swelling throughout R anterior knee. TTP in medial joint spaces of R knee. No crepitus. SKIN: Warm, dry, normal color. NEURO: A&O X3. Speech clear. Steady gait. No ataxic movements. PSYCHIATRIC: Appropriate mood and affect. Normal interaction. Course Vital Signs Vital signs: Vital Signs Temperature 97.9 F 03/17/25 11:13 Pulse Rate 76 03/17/25 11:13 Respiratory Rate 16 03/17/25 11:13 Blood Pressure 132/80 03/17/25 11:13 Pulse Oximetry 100 03/17/25 11:13 Oxygen Delivery Room Air 03/17/25 11:13 Temperature 97.8 F 03/17/25 12:43 Pulse Rate 78 03/17/25 12:43 Respiratory Rate 16 03/17/25 12:43 Blood Pressure 132/80 03/17/25 12:43 Pulse Oximetry 100 03/17/25 12:43 Oxygen Delivery Room Air 03/17/25 11:13 MDM - Extremity Injury (Lower) MDM Narrative Medical decision making narrative: Patient?s injury is consistent with musculoskeletal etiology. No signs of neurologic or vascular compromise on physical examination. Compartments are soft without signs of compartment syndrome. XR of R knee negative, no joint effusion or fx. Pain is consistent with likely internal derangement of knee. Patient is felt to be stable for discharge home and further outpatient management and treatment. Will refer to orthopedics for further evaluation and possible MRI. Discussed continued rice therapy, will prescribe short course of tramadol for home. Discussed strict return precautions. She is in agreement with plan. Discharged in stable condition. Medical Records Attestation: I reviewed the patient's medical records. Imaging Data Attestation: I personally reviewed and interpreted this imaging study as follows: Radiologist's impression: ITS Impressions Knee X-Ray 03/17/25 11:41 IMPRESSION: No acute osseous abnormality right knee. Discharge Plan Discharge Clinical Impression: Acute internal derangement of knee Patient Disposition: Home Condition: Stable Instructions: Antibiotic Form, Knee Sprain (ED), P.R.I.C.E. Treatment (ED) Additional Instructions: Continue Tylenol and Ibuprofen as needed for pain. You may use ice/heat to knee. Keep elevated as much as possible. Continue to use knee brace as needed. Utilize Tramadol as needed for more severe pain. Do not drive, operate heavy machinery, drink alcohol while on muscle relaxers as this may cause further sedation. Follow-up with your primary care doctor and orthopedics for further evaluation. Call office to make appointment. Return to the ED if you experience worsening or severe pain, recurrent injury, numbness, severe swelling, or any other symptoms of concern. Patient Language: Sammarinese Prescriptions: New tramadol 50 mg tablet 25 mg PO Q6H PRN (Reason: pain) Qty: 10 0RF Follow-up/Referrals: Candido,MD Gautam [Primary Care Provider] - Sajan Jara MD [Physician] - (ORTHOPEDICS) Time of Disposition: 12:34
[2025-03-17 12:43] VITALS: BP 132/80; PULSE 78; RESP 16; TEMP 36.6; O2SAT 100
== END 2025-03-17 12:49 | disposition home or self-care (01) ==
PROVIDERS: Emergency Provider Physician Assistant; PCP Internal Medicine
DX: M23.91 Unspecified internal derangement of right knee (principal); S89.91XA Unspecified injury of right lower leg, initial encounter; G62.9 Polyneuropathy, unspecified; M21.371 Foot drop, right foot; W19.XXXA Unspecified fall, initial encounter
CPT/HCPCS: 73562; 99283

== ENCOUNTER 2025-04-04 10:50 | Outpatient (CLI) | payer MEDICARE, SELFPAY ==
--- NOTE | ~2025-04-04 | MR_ITS ---
MRI of the right knee Clinical history: Pain Technique: Coronal proton density and proton density-weighted images, sagittal proton-density and T2 fat-sat images, and axial proton-density fat-saturated images were acquired. Findings: Anterior and posterior cruciate ligaments are intact. Medial collateral ligament and the la teral collateral ligament complex are intact. Popliteus tendon is intact. Probable oblique tear of the posterior horn of the medial meniscus. No definite lateral meniscal tear seen. There is presumed reactive marrow edema at the medial tibial plateau towards the joint line, presumab ly related to focal overlying high-grade chondromalacia. No definite insufficiency fracture seen. Extensor mechanism is intact. No significant joint effusion. Minimal Lopez's cyst. Impression: Oblique tear of the posterior horn of the medial meniscus. Presumed reactive marrow edema/stress response in the medial tibial plateau at the joint line, presum ably due to underlying focal high-grade chondromalacia. Minimal Lopez's cyst. Reviewed, dictated and finalized at [facility]. Impression: Oblique tear of the posterior horn of the medial meniscus. Presumed reactive marrow edema/stress response in the medial tibial plateau at the joint line, presumably due to underlying focal high-grade chondromalacia. Minimal Lopez's cyst.
== END 2025-04-04 10:51 | disposition home or self-care (01) ==
LOC: GOSHIMG 10:50
PROVIDERS: PCP Psychiatry & Neurology Neurology; Visit Provider Internal Medicine
DX: M25.561 Pain in right knee (principal)
CPT/HCPCS: 73721